=== PATIENT | male | born 1975 | race Caucasian/White ===

== ENCOUNTER 2024-08-10 16:34 | Inpatient (IN) ==
[2024-08-10 17:19] LABS: Basophils # (auto) 0.07 K/uL (0.00-0.20); Basophils % (auto) 1.1 %; Eosinophils # (auto) 0.37 K/uL (0.00-0.50); Eosinophils % (auto) 5.7 %; Hematocrit (blood only) 26.3 % (42.0-52.0); Hemoglobin 7.6 g/dl (14.0-18.0); Immature Granulocytes # (auto) 0.02 K/uL (0.01-0.20); Immature Granulocytes % (auto) 0.3 %; Lymphocytes # (auto) 1.07 K/uL (1.20-3.40); Lymphocytes % (auto) 16.5 %; Mean Corpuscular Hgb Conc 28.9 g/dL (32.0-36.0); Mean Corpuscular Volume 90.1 fL (80.0-100.0); Monocytes # (auto) 0.76 K/uL (0.11-0.59); Monocytes % (auto) 11.7 %; Neutrophils # (auto) 4.21 K/uL (1.40-6.50); Neutrophils % (auto) 64.7 %; Platelet Count 133 K/uL (130-400); RDW Coefficient of Variation 19.9 % (11.5-14.5); RDW Standard Deviation 64.6 fL (36.4-46.3); Red Blood Count 2.92 M/uL (4.70-6.10)
--- NOTE | 2024-08-10 17:23 | Emergency Department Note ---
Impression & Plan Anemia ADMIT ED Provider Note HPI: History obtained from patient. The patient is a 49-year-old gentleman with history of chronic low back pain status post laminectomy, who presents the emergency department with chief complaint of chronic back pain with lower extremity numbness. Patient states he has had this issue for about the past 8 months. Patient states he was referred to a sports medicine provider at [facility] in [place] and he drove to [facility] for his appointment. Given his numbness and low back pain his provider thought he should be evaluated for cauda equina syndrome and therefore sent him to the ER for further management. On arrival here to the ED the patient is alert, he has some diminished motor function in the bilateral lower extremities that he tells me is chronic, he states he has bilateral lower extremity numbness which she also states is chronic. Patient states that he has urinary urgency which is also chronic. Patient denies any recent fever. On arrival here to the ED the patient is otherwise hemodynamically stable. ROS: - Per HPI Differential Diagnosis: Cauda equina syndrome, degenerative disease of the lumbar spine with radicular pain/numbness, herniated lumbar disc, compression fracture, bony lesion/tumor, amongst other potential pathologies. *Outpatient medications and allergy history reviewed. PE: General: Alert, obese HEENT: Normocephalic, trachea midline Eyes: Extraocular eye movement is intact, no scleral erythema Pulmonary: Clear to auscultation bilaterally, no wheezing Cardio: Regular rate and rhythm GI: Abdomen is soft to palpation : No suprapubic tenderness MSK: No evidence of trauma or malformation of the extremities, no edema, no midline tenderness of the lumbar spine with palpation Skin: No evidence of rash Neuro: Alert, no focal deficits, motor function is slightly diminished in the bilateral lower extremities at 3 out of 5 with dorsiflexion and plantarflexion of the bilateral feet Psychiatric: Cooperative INDEPENDENT INTERPRETATIONS: puttier: (As interpreted by myself): - An order was placed for continuous cardiac monitoring - Patient was noted to be in sinus rhythm with a rate of 95 EKG: (As interpreted by myself): Rate: 100 Rhythm: Sinus rhythm Intervals: Within normal limits ST changes: No ST elevation Time: 2124 Interventions provided in ED: -IV morphine, IV Zofran Medical Decision Making: IV was established and lab work obtained, patient was placed on records management coordinator. Lab work shows no leukocytosis, patient has an anemia of 7.6 with unknown baseline. Platelet count is normal. CMP does not show any evidence of any critical findings, troponin did return mildly elevated at 25.7, patient denies any chest pain, EKG does not show any acute ischemic changes per my interpretation. Urine shows 3+ glucose but no evidence of infection. Given the patient's issues with numbness in the lower extremities with acute on chronic lower back pain, MRI imaging of the lumbar spine was obtained that shows mild disc and facet degeneration in the lower lumbar spine. There is some mild bilateral foraminal narrowing at L4 and L5 as well as at L5 and S1. Otherwise no acute osseous findings are noted per the interpreting radiologist, there is no significant central canal narrowing. On my reassessment the patient appears well, he is ambulatory in the room without issue. He states he is not aware of any history of anemia, states he has had some fatigue over the past several weeks that appears to be worsening. He states he does think that over the past several weeks he has had several episodes of "dark stools" but no jorge l bleeding. His troponin is mildly elevated as well in the setting of symptomatic anemia therefore I do think he should be admitted. He is otherwise hemodynamically stable at this time and saturating well on room air, therefore will defer PRBC transfusion to the inpatient team, if determined appropriate. I discussed the patient's presentation with the on-call hospitalist, Dr. Rizo, and he is in agreement. Patient was placed for admission in stable condition. Consultants/Discussions held with other healthcare providers: -Hospitalist, Dr. Rizo Disposition discussion held by myself with: -Patient and significant other at the bedside Diagnosis: 1. Anemia, acute, nonspecific 2. Elevated high-sensitivity troponin, acute 3. Acute on chronic back pain 4. Generalized weakness/fatigue, acute Disposition: Admission Jeff Cohen DO Emergency Medicine Past Med/Surg History Problem List (Updated 05/20/18 @ 17:51 by [employer] [place]) Anemia (Acute) Post-operative state (Acute 12/26/13) Medical History (Updated 08/10/24 @ 22:39 by Jeff Cohen DO) Dougherty esophagus Morbid obesity Diabetes mellitus, type II GERD (gastroesophageal reflux disease) ELROY (obstructive sleep apnea) HTN (hypertension) HLD (hyperlipidemia) Social History Smoking Status: Never smoker Feels Safe at Home: Yes Allergies Allergies Allergy/AdvReac Type Severity Reaction Status Date / Time diazepam AdvReac Unknown diaphoretic Verified 12/06/13 11:29 ;confused Home Meds Home Medications Medication Instructions Recorded Confirmed albuterol sulfate 90 mcg/actuation 2 puff inhalation Q4 PRN Cough 08/10/24 08/10/24 aerosol inhaler diclofenac sodium 75 mg 75 mg PO BID 08/10/24 08/10/24 tablet,delayed release empagliflozin 25 mg tablet 25 mg PO DAILY 08/10/24 08/10/24 (Jardiance) furosemide 20 mg tablet 20 mg PO DAILY 08/10/24 08/10/24 gabapentin 300 mg capsule 300 mg PO QID 08/10/24 08/10/24 hydrocodone 7.5 mg-acetaminophen 7.5 - 235 tab PO QID 08/10/24 08/10/24 325 mg tablet lisinopril 5 mg tablet 5 mg PO DAILY 08/10/24 08/10/24 lorazepam 0.5 mg tablet 0.5 mg PO HS 08/10/24 08/10/24 metformin 1,000 mg tablet 500 mg PO BID 08/10/24 08/10/24 mometasone-formoterol HFA 100 1 puff inhalation BID 08/10/24 08/10/24 mcg-5 mcg/actuation aerosol inhaler (Jerson) montelukast 10 mg tablet 10 mg PO HS 08/10/24 08/10/24 omeprazole 40 mg capsule,delayed 40 mg PO BID 08/10/24 08/10/24 release rosuvastatin 10 mg tablet 10 mg PO DAILY 08/10/24 08/10/24 semaglutide 0.25 mg or 0.5 mg (2 0.25 mg subcut WK 08/10/24 08/10/24 mg/3 mL) subcutaneous pen injector (Ozempic) tizanidine 4 mg tablet 8 mg PO HS 08/10/24 08/10/24 trazodone 50 mg tablet 50 mg PO HS 08/10/24 08/10/24 triamcinolone acetonide 0.1 % 1 applic topical UD 08/10/24 08/10/24 topical cream Results & Data (ED) Vital Signs Vital Signs - 24 hr 08/10/24 16:42 08/10/24 19:44 08/10/24 20:15 Temperature 37.1 C Temperature Source Temporal Artery Scan Pulse Rate 101 H Pulse Rate [Right Finger] 101 H 93 H Respiratory Rate 20 19 16 Blood Pressure 131/62 Blood Pressure [Right Arm] 109/75 Blood Pressure Mean 85 Blood Pressure Mean [Right Arm] 86 Pulse Oximetry 97 92 92 Oxygen Delivery Method Room Air Nasal Cannula Oxygen Flow Rate 2 Sepsis Recent Fever Within 48 Hours No Sepsis New/Unexplained Change in Mental Status N/A Sepsis Action Taken by Nursing No Action Required 08/10/24 22:32 Temperature Temperature Source Pulse Rate Pulse Rate [Right Finger] 98 H Respiratory Rate 19 Blood Pressure Blood Pressure [Right Arm] 125/91 Blood Pressure Mean Blood Pressure Mean [Right Arm] 102 Pulse Oximetry 91 Oxygen Delivery Method Room Air Oxygen Flow Rate Sepsis Recent Fever Within 48 Hours Sepsis New/Unexplained Change in Mental Status Sepsis Action Taken by Nursing Laboratory Data 08/10/24 17:00 08/10/24 17:00 Lab Results 08/10/24 08/10/24 Range/Units 17:00 18:15 WBC 6.50 (4.8-10.8) K/ul RBC 2.92 L (4.70-6.10) M/uL Hgb 7.6 L (14.0-18.0) g/dl Hct 26.3 L (42.0-52.0) % MCV 90.1 (80.0-100.0) fL MCH 26.0 (25.0-34.0) pg MCHC 28.9 L (32.0-36.0) g/dL RDW Std Deviation 64.6 H (36.4-46.3) fL RDW Coeff of Sina 19.9 H (11.5-14.5) % Plt Count 133 (130-400) K/uL MPV 10.0 (9.4-12.4) fL Immature Gran % (Auto) 0.3 % Neut % (Auto) 64.7 % Lymph % (Auto) 16.5 % Webb % (Auto) 11.7 % Eos % (Auto) 5.7 % Baso % (Auto) 1.1 % Neut # (Auto) 4.21 (1.40-6.50) K/uL Lymph # (Auto) 1.07 L (1.20-3.40) K/uL Webb # (Auto) 0.76 H (0.11-0.59) K/uL Eos # (Auto) 0.37 (0.00-0.50) K/uL Baso # (Auto) 0.07 (0.00-0.20) K/uL Immature Gran # (Auto) 0.02 (0.01-0.20) K/uL Polychromasia 1+ Hypochromasia Present Sodium 137 (136-145) mmol/L Potassium 4.2 (3.5-5.1) mmol/L Chloride 99 (98-107) mmol/L Carbon Dioxide 24 (21-32) mmol/L Anion Gap 14 H (3-11) BUN 14 (6-23) mg/dl Creatinine 0.93 (0.6-1.4) mg/dl Est Cr Clr Drug Dosing 126.8 ml/min eGFR 100.66 BUN/Creatinine Ratio 15.1 (10-20) Glucose 80 (70-99(Fasting)) mg/dl Calcium 9.6 (8.6-10.3) mg/dl Total Bilirubin 1.0 (0.2-1.0) mg/dl AST 55 H (13-39) U/L ALT 19 (7-52) U/L Alkaline Phosphatase 158 H (34-104) U/L Troponin I High Sens 25.7 H (0-20) pg/ml Total Protein 7.3 (6.0-8.3) gm/dl Albumin 3.7 (3.4-5.0) gm/dl Globulin 3.6 (2.5-4.0) gm/dl Albumin/Globulin Ratio 1.0 (0.9-2) Urine Color Yellow Urine Appearance Clear (Clear) Urine pH 6.0 (4.5-7.5) Ur Specific Goltry 1.016 (1.000-1.030) Urine Protein 1+ H (Negative) Urine Glucose (UA) 3+ H (Negative) Urine Ketones Negative (Negative) Urine Blood Negative (Negative) Urine Nitrite Negative (Negative) Urine Bilirubin Negative (Negative) Urine Urobilinogen Negative (Negative) Ur Leukocyte Esterase Negative (Negative) Urine WBC (Auto) 0-5 (0-5) /hpf Urine RBC (Auto) 0-2 (0-2) /hpf U Hyaline Cast (Auto) 0-2 (0-2) /lpf U Epithel Cells (Auto) 0-2 (0-2) /hpf Urine Bacteria (Auto) None Seen (None Seen) Administered Medications Gabapentin (Gabapentin 300 Mg Cap) 300 mg PO QID RANDELL Stop: 09/09/24 21:34 Last Admin: 08/10/24 22:01 Dose: 300 mg Documented By: KELLW Lorazepam (Lorazepam 0.5 Mg Tab) 0.5 mg PO HS PRN PRN Reason: insomnia Stop: 09/09/24 21:34 Last Admin: 08/10/24 22:32 Dose: 0.5 mg Documented By: KELLW Montelukast Sodium (Montelukast Sodium 10 Mg Tablet) 10 mg PO HS RANDELL Stop: 09/09/24 21:34 Last Admin: 08/10/24 22:01 Dose: 10 mg Documented By: KELLW Oxycodone HCl (Oxycodone Hcl Ir 5 Mg Tab (Immediate Release)) 5 - 10 mg PO QID PRN PRN Reason: Pain Stop: 08/24/24 21:31 Last Admin: 08/10/24 22:32 Dose: 5 mg Documented By: JAZIEL Trazodone HCl (Trazodone Hcl 50 Mg Tab) 50 mg PO HS RANDELL Stop: 09/09/24 21:34 Last Admin: 08/10/24 22:01 Dose: 50 mg Documented By: JAZIEL Discontinued Medications Pantoprazole Sodium 80 mg/ (Dextrose) 120 mls @ 480 mls/hr IV ONE STA Stop: 08/10/24 21:52 Last Infusion: 08/10/24 22:16 Dose: Infused Documented By: Admin: 08/10/24 22:02 Dose: 480 mls/hr Documented By: JAZIEL Morphine Sulfate (Morphine Sulfate 4 Mg/Ml 1 Ml Carp\\Vial) 4 mg IV NOW STA Stop: 08/10/24 17:21 Last Admin: 08/10/24 17:26 Dose: 4 mg Documented By: JAMIE Ondansetron HCl (Ondansetron Inj 2 Mg/Ml 2 Ml Vial) 4 mg IV NOW STA Stop: 08/10/24 17:21 Last Admin: 08/10/24 17:26 Dose: 4 mg Documented By: JAMIE Imaging Data Radiologist's Impression: Lumbar Spine MRI 08/10/24 17:19 Exam(s): MRI L SPINE Without Contrast EXAM: MR Lumbar Spine Without Intravenous Contrast CLINICAL HISTORY: Reason for exam: low back pain, LE numbness. TECHNIQUE: Magnetic resonance images of the lumbar spine without intravenous contrast in multiple planes. COMPARISON: No relevant prior studies available. FINDINGS: There is lumbar lordosis, preserved vertebral body height, and normal vertebral body alignment. There is no evidence of acute fracture or traumatic subluxation. There is no bone marrow edema or discitis change. Benign intraosseous hemangiomas are noted at the L1, L2, and L4 levels. Laminectomies have been performed at the L4-L5 and L5-S1 levels. Conus medullaris is seen opposite to the T12 level and appears normal on sagittal views. Conus is not imaged on axial sequences. There is disc desiccation at L3-L4, L4-L5, L5-S1. There is disc height loss at the L4-L5 and L5-S1 levels. There is facet degeneration in the lower lumbar spine. L1-L2: No spinal canal or foraminal narrowing. L2-L3: No spinal canal or foraminal narrowing. L3-L4: Slight disc bulging with minimal spinal canal narrowing. No foraminal narrowing. L4-L5: Laminectomy at this level. Disc degeneration with mild disc bulging. No spinal canal narrowing. Facet degeneration contributes to mild bilateral foraminal narrowing. L5-S1: Laminectomy at this level. Disc degeneration and minimal disc bulging. No spinal canal narrowing. Facet degeneration contributes to mild bilateral foraminal narrowing. Sacroiliac joints are normally aligned. Paravertebral soft tissues are unremarkable. IMPRESSION: 1. Mild disc and facet degeneration in the lower lumbar spine. Mild bilateral foraminal narrowing at L4-L5 and L5-S1. 2. No acute osseous findings. No significant central canal narrowing. 3. Status post lower lumbar laminectomies. Electronically signed by: Chinmay Melissa M.D. 08/10/24 20:23 PM Discharge Plan Visit Data Chief Complaint: Back Injury/Pain Stated Complaint: LOW BACK PAIN NUBNESS, BLADDER ISSUES ED Provider: Jeff Cohen Discharge Problem: Anemia Forms Stand Alone Forms: [facility] [employer] Prescriptions Prescriptions: No Action diclofenac sodium 75 mg tablet,delayed release (DR/EC) 75 mg PO BID furosemide 20 mg tablet 20 mg PO DAILY hydrocodone-acetaminophen 7.5-325 mg tablet 7.5 - 235 tab PO QID Jardiance 25 mg tablet 25 mg PO DAILY lorazepam 0.5 mg tablet 0.5 mg PO HS lisinopril 5 mg tablet 5 mg PO DAILY metformin 1,000 mg tablet 500 mg PO BID Ozempic 0.25 mg or 0.5 mg (2 mg/3 mL) pen injector 0.25 mg SUBCUT WK rosuvastatin 10 mg tablet 10 mg PO DAILY tizanidine 4 mg tablet 8 mg PO HS trazodone 50 mg tablet 50 mg PO HS triamcinolone acetonide 0.1 % cream 1 applic TOPICAL UD Dulera 100-5 mcg/actuation HFA aerosol inhaler 1 puff INHALATION BID montelukast 10 mg tablet 10 mg PO HS omeprazole 40 mg capsule,delayed release(DR/EC) 40 mg PO BID gabapentin 300 mg capsule 300 mg PO QID albuterol sulfate 90 mcg/actuation HFA aerosol inhaler 2 puff INHALATION Q4 PRN (Reason: Cough) Referrals Referrals: Ke Hickey MD [Outside Practitioners] -
[2024-08-10] MEDS: MoRPHine SULFATE 4 MG/ML 1 ML CARP\\VIAL IV STA (17:26)
[2024-08-10] MEDS: ONDANSETRON INJ 2 MG/ML 2 ML VIAL IV STA (17:26)
[2024-08-10 17:36] LABS: Hypochromasia Present; Polychromasia 1+
[2024-08-10 17:48] LABS: Alanine Aminotransferase 19 U/L (7-52); Albumin Level 3.7 gm/dl (3.4-5.0); Alkaline Phosphatase 158 U/L (34-104); Anion Gap 14 (3-11); Aspartate Aminotransferase 55 U/L (13-39); BUN Creatinine Ratio 15.1 (10-20); Blood Urea Nitrogen 14 mg/dl (6-23); Calcium 9.6 mg/dl (8.6-10.3); Carbon Dioxide 24 mmol/L (21-32); Chloride 99 mmol/L (98-107); Creatinine Clr Calc Pharmacy 126.8 ml/min; Globulin 3.6 gm/dl (2.5-4.0); Glucose 80 mg/dl (70-99(Fasting)); Potassium 4.2 mmol/L (3.5-5.1); Sodium 137 mmol/L (136-145); Total Protein 7.3 gm/dl (6.0-8.3)
[2024-08-10 18:31] LABS: Appearance Urine Clear (Clear); Bacteria Urine Automated None Seen (None Seen); Bilirubin Urine Negative (Negative); Blood Urine Negative (Negative); Cast Urine Automated 0-2 /lpf (0-2); Color Urine Yellow; Epithelial Cell Urine Auto 0-2 /hpf (0-2); Glucose Urine UA 3+ (Negative); Ketones Urine Negative (Negative); Leukocyte Esterase Urine Negative (Negative); Nitrite Urine Negative (Negative); Protein Urine 1+ (Negative); RBC Urine Automated 0-2 /hpf (0-2); Specific Gravity Urine 1.016 (1.000-1.030); Urobilinogen Urine Negative (Negative); WBC Urine Automated 0-5 /hpf (0-5)
--- NOTE | 2024-08-10 21:02 | Magnetic Resonance Report ---
Exam(s): MRI L SPINE Without Contrast EXAM: MR Lumbar Spine Without Intravenous Contrast CLINICAL HISTORY: Reason for exam: low back pain, LE numbness. TECHNIQUE: Magnetic resonance images of the lumbar spine without intravenous contrast in multiple planes. COMPARISON: No relevant prior studies available. FINDINGS: There is lumbar lordosis, preserved vertebral body height, and normal vertebral body alignment. There is no evidence of acute fracture or traumatic subluxation. There is no bone marrow edema or discitis change. Benign intraosseous hemangiomas are noted at the L1, L2, and L4 levels. Laminectomies have been performed at the L4-L5 and L5-S1 levels. Conus medullaris is seen opposite to the T12 level and appears normal on sagittal views. Conus is not imaged on axial sequences. There is disc desiccation at L3-L4, L4-L5, L5-S1. There is disc height loss at the L4-L5 and L5-S1 levels. There is facet degeneration in the lower lumbar spine. L1-L2: No spinal canal or foraminal narrowing. L2-L3: No spinal canal or foraminal narrowing. L3-L4: Slight disc bulging with minimal spinal canal narrowing. No foraminal narrowing. L4-L5: Laminectomy at this level. Disc degeneration with mild disc bulging. No spinal canal narrowing. Facet degeneration contributes to mild bilateral foraminal narrowing. L5-S1: Laminectomy at this level. Disc degeneration and minimal disc bulging. No spinal canal narrowing. Facet degeneration contributes to mild bilateral foraminal narrowing. Sacroiliac joints are normally aligned. Paravertebral soft tissues are unremarkable. IMPRESSION: 1. Mild disc and facet degeneration in the lower lumbar spine. Mild bilateral foraminal narrowing at L4-L5 and L5-S1. 2. No acute osseous findings. No significant central canal narrowing. 3. Status post lower lumbar laminectomies. Electronically signed by: Chinmay Melissa M.D. 08/10/24 20:23 PM
[2024-08-10] MEDS ORDERED: ACETAMINOPHEN 325 MG TAB PO PRN (21:32)
[2024-08-10] MEDS ORDERED: ACETAMINOPHEN 500 MG TAB PO PRN (21:38)
[2024-08-10 21:46] LABS: Troponin I High Sensitivity 25.7 pg/ml (0-20)
[2024-08-10] MEDS: traZODone HCL 50 MG TAB PO SCH (22:01)
[2024-08-10] MEDS: MONTELUKAST SODIUM 10 MG TABLET PO SCH (22:01)
[2024-08-10] MEDS: GABAPENTIN 300 MG CAP PO SCH (22:01)
[2024-08-10] MEDS: PANTOprazole 80 MG in DEXTROSE 5% 100 ML IV STA (22:02)
--- NOTE | 2024-08-10 22:04 | History & Physical Report ---
Date of Service August 10, 2024 Assessment & Plan (1) Symptomatic anemia: (2) Chronic back pain: (3) Diabetes mellitus, type II: (4) HTN (hypertension): (5) HLD (hyperlipidemia): (6) GERD (gastroesophageal reflux disease): (7) ELROY (obstructive sleep apnea): (8) Morbid obesity: Plan: HPI, PMH, FH, Social history, PE, med rec completed by myself, Jolie Degroot PA-C. Assessment and Plan per Dr Rizo. See addendum. History of Present Illness Chief Complaint: back pain, LE numbness Primary Care Provider: Britni Gomez PA-C Patient is a 49-year-old male with PMH GERD, HTN, HLD, DM II, ELROY, morbid obesity, anxiety presented to ER for back pain LE numbness. Patient reports chronic low back pain. Takes hydrocodone 4 times a day. Reports approximately 6-8 months ago had a fall out of bed and since has had increased pain to left hip radiates to groin and down left thigh to knee. Also reports numbness sensation to left upper leg. States this has been ongoing for past 6-8 months. Followed up with PCP 07/07/2024 and was started on diclofenac. Per outpatient chart review 07/07/2024 L-spine x-ray multilevel degenerative changes, no acute fracture and bilateral hip x-ray: No acute fracture or dislocation, Right hip arthroplasty, Moderate degenerative change left hip. Per outpatient chart review was seen by [facility] sports medicine today for hip pain, back pain and leg pain. Patient had reported issues with bladder urgency intermittently leading to incontinence and altered sensation to perineal region and was referred to ER for further evaluation for concern for cauda equina syndrome. Patient reports has had some nausea. He started Ozempic approximately 4 weeks ago. He is unsure when nausea began and if there is an association with onset of starting Ozempic. Has been taking Diclofenac twice a day. Denies other NSAID use. Drinks approximately 5 beers a week. Intermittent use of vaping medical marijuana. A few times noticed darker color stool but is not consistent. Denies hematochezia. Denies vomiting or abdominal pain. Denies loss control of b owels. Reports has urinary urgency and with his back pain and leg numbness can't get to bathroom in time and sometimes has incontinence. Reports his helps swing his legs out of bed and assists in ambulating him to bathroom in attempts to get there in time. Reports chronic BLE edema and is on lasix. He reports he is becoming fatigued faster with walking and has noticed feels a little SOB with walking over past couple of weeks. Denies history of CHF. Drinks 5 beers a week. Denies other NSAID use. Denies fever/chills, diaphoresis, diarrhea, OLSEN, dizziness, syncope, vision changes, neck pain, CP, palpitations, cough, sore throat, rhinorrhea, rashes, hematuria. In ER MRI L spine: Mild disc and facet degeneration in the lower lumbar spine. Mild bilateral foraminal narrowing at L4-L5 and L5-S1. No acute osseous findings. No significant central canal narrowing. Status post lower lumbar laminectomies. 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 10/13/2021 CT abdomen pelvis: Liver cirrhosis with signs of portal hypertension, splenomegaly Allergies Allergy/AdvReac Type Severity Reaction Status Date / Time diazepam AdvReac Unknown diaphoretic Verified 12/06/13 11:29 ;confused Home Medications Medication Instructions Recorded Confirmed Type albuterol sulfate 90 mcg/actuation 2 puff inhalation Q4 PRN Cough 08/10/24 08/10/24 History aerosol inhaler diclofenac sodium 75 mg 75 mg PO BID 08/10/24 08/10/24 History tablet,delayed release empagliflozin 25 mg tablet 25 mg PO DAILY 08/10/24 08/10/24 History (Jardiance) furosemide 20 mg tablet 20 mg PO DAILY 08/10/24 08/10/24 History gabapentin 300 mg capsule 300 mg PO QID 08/10/24 08/10/24 History hydrocodone 7.5 mg-acetaminophen 7.5 - 235 tab PO QID 08/10/24 08/10/24 History 325 mg tablet lisinopril 5 mg tablet 5 mg PO DAILY 08/10/24 08/10/24 History lorazepam 0.5 mg tablet 0.5 mg PO HS 08/10/24 08/10/24 History metformin 1,000 mg tablet 1,000 mg PO BID 08/10/24 08/10/24 History mometasone-formoterol HFA 100 1 puff inhalation BID 08/10/24 08/10/24 History mcg-5 mcg/actuation aerosol inhaler (Dulera) montelukast 10 mg tablet 10 mg PO HS 08/10/24 08/10/24 History omeprazole 40 mg capsule,delayed 40 mg PO BID 08/10/24 08/10/24 History release rosuvastatin 10 mg tablet 10 mg PO DAILY 08/10/24 08/10/24 History semaglutide 0.25 mg or 0.5 mg (2 0.25 mg subcut WK 08/10/24 08/10/24 History mg/3 mL) subcutaneous pen injector (Ozempic) tizanidine 4 mg tablet 4 mg PO HS 08/10/24 08/10/24 History trazodone 50 mg tablet 50 mg PO HS 08/10/24 08/10/24 History triamcinolone acetonide 0.1 % 1 applic topical UD 08/10/24 08/10/24 History topical cream Past Med/Surg History Problem List (Updated 08/10/24 @ 22:58 by Jolie Degroot PA-C) Symptomatic anemia Anemia (Acute) Post-operative state (Acute 12/26/13) Medical History (Updated 08/10/24 @ 23:06 by Jolie Degroot PA-C) Chronic back pain Morbid obesity Diabetes mellitus, type II GERD (gastroesophageal reflux disease) ELROY (obstructive sleep apnea) HTN (hypertension) HLD (hyperlipidemia) Surgical History (Updated 08/10/24 @ 22:58 by Jolie Degroot PA-C) History of spinal surgery History of esophagogastroduodenoscopy (EGD) History of colonoscopy Family History (Updated 08/10/24 @ 22:58 by Jolie Degroot PA-C) Father Diabetes Social History (Updated 08/10/24 @ 22:59 by Jolie Degroot PA-C) Smoking Status: Current some day smoker Tobacco Type: E-cigarettes / Vaping Hx Alcohol Use: Yes (5 beers a week) Hx Substance Use: Yes Prescribed Medications: Marijuana Feels Safe at Home: Yes Review of Systems Review of Systems: All systems reviewed & are unremarkable except as noted in HPI & below Physical Exam Physical Exam: General: +anxious, obese male Head: normocephalic, atraumatic Eyes: conjunctiva non-injected, anicteric ENT: normal inspection external ears, nose, mucous membranes moist Neck: supple, trachea midline Lungs: clear, no respiratory distress, no wheezing/rhonchi/rales CV: RRR, no murmur Abd: protuberant, normal BS, soft, non-tender Ext: no cyanosis, no erythema, no calf tenderness Back: +healed surgical scar lower lumbar region. +tenderness to palpation lower lumbar spinous processes. No skin discoloration noted. Reported decreased sensation to left thigh vs right thigh, +tenderness to palpation left thigh Neuro: A&O x 3, no focal deficits noted, +anxious affect, tearful Skin: warm, dry Results & Data Results & Data Vital Signs (Past 12 Hours) Vital Signs Temp Pulse Pulse Resp BP BP Pulse Ox 08/10/24 20:15 93 H 16 109/75 92 08/10/24 19:44 101 H 19 92 08/10/24 16:42 37.1 C 101 H 20 131/62 97 O2 Del Method O2 Flow Rate 08/10/24 20:15 Nasal Cannula 2 08/10/24 19:44 Room Air 08/10/24 16:42 Laboratory Results Short CBC 08/10/24 Range/Units 17:00 WBC 6.50 (4.8-10.8) K/ul Hgb 7.6 L (14.0-18.0) g/dl Hct 26.3 L (42.0-52.0) % Plt Count 133 (130-400) K/uL BMP 08/10/24 17:00 Sodium 137 Potassium 4.2 Chloride 99 Carbon Dioxide 24 BUN 14 Creatinine 0.93 Glucose 80 Calcium 9.6 Liver Function 08/10/24 Range/Units 17:00 Total Bilirubin 1.0 (0.2-1.0) mg/dl AST 55 H (13-39) U/L ALT 19 (7-52) U/L Alkaline Phosphatase 158 H (34-104) U/L Albumin 3.7 (3.4-5.0) gm/dl Urine 08/10/24 Range/Units 18:15 Urine Color Yellow Urine Appearance Clear (Clear) Urine pH 6.0 (4.5-7.5) Ur Specific [place] 1.016 (1.000-1.030) Urine Protein 1+ H (Negative) Urine Glucose (UA) 3+ H (Negative) Diagnostic Findings Lumbar Spine MRI 08/10/24 17:19 Exam(s): MRI L SPINE Without Contrast EXAM: MR Lumbar Spine Without Intravenous Contrast CLINICAL HISTORY: Reason for exam: low back pain, LE numbness. TECHNIQUE: Magnetic resonance images of the lumbar spine without intravenous contrast in multiple planes. COMPARISON: No relevant prior studies available. FINDINGS: There is lumbar lordosis, preserved vertebral body height, and normal vertebral body alignment. There is no evidence of acute fracture or traumatic subluxation. There is no bone marrow edema or discitis change. Benign intraosseous hemangiomas are noted at the L1, L2, and L4 levels. Laminectomies have been performed at the L4-L5 and L5-S1 levels. Conus medullaris is seen opposite to the T12 level and appears normal on sagittal views. Conus is not imaged on axial sequences. There is disc desiccation at L3-L4, L4-L5, L5-S1. There is disc height loss at the L4-L5 and L5-S1 levels. There is facet degeneration in the lower lumbar spine. L1-L2: No spinal canal or foraminal narrowing. L2-L3: No spinal canal or foraminal narrowing. L3-L4: Slight disc bulging with minimal spinal canal narrowing. No foraminal narrowing. L4-L5: Laminectomy at this level. Disc degeneration with mild disc bulging. No spinal canal narrowing. Facet degeneration contributes to mild bilateral foraminal narrowing. L5-S1: Laminectomy at this level. Disc degeneration and minimal disc bulging. No spinal canal narrowing. Facet degeneration contributes to mild bilateral foraminal narrowing. Sacroiliac joints are normally aligned. Paravertebral soft tissues are unremarkable. IMPRESSION: 1. Mild disc and facet degeneration in the lower lumbar spine. Mild bilateral foraminal narrowing at L4-L5 and L5-S1. 2. No acute osseous findings. No significant central canal narrowing. 3. Status post lower lumbar laminectomies. Electronically signed by: Chinmay Melissa M.D. 08/10/24 20:23 PM Chest X-Ray 08/10/24 21:36 Exam(s): XR CXR 1 VIEW EXAM: XR Chest, 1 View CLINICAL HISTORY: Reason for exam: low o2. TECHNIQUE: Frontal view of the chest. COMPARISON: 12/06/13 FINDINGS: Lungs: Pulmonary vascular congestion. No airspace consolidation. Linear atelectasis at the lung bases. Pleural space: Unremarkable. No pleural effusion or pneumothorax. Heart: Unremarkable. No cardiomegaly or pulmonary vascular congestion. Bones/joints: No acute fracture. No dislocation. IMPRESSION: Pulmonary vascular congestion. No airspace consolidation. Electronically signed by: Chinmay Melissa M.D. 08/10/24 22:55 PM Supervising Physician Co-Signing Physician Notes IM ATTENDING : Patient seen and examined. History obtained from patient, family, and records. Concur with salient points upon review of preceding documentation by Ms. Petty Nguyễn PA-C. I take responsibility for plan of care below. In addition, patient gives history of exertional SOB, fluid retention (progressive abdominal distention and bilateral leg swelling) over the last few weeks. FINAL ASSESSMENT AND PLAN as follows : Subacute CHF Possible pulmonary hypertension, history ELROY, current CPAP noncompliance ? Valvular heart disease, systolic murmur on exam NSAID Rx contributory to fluid retention Acute on chronic anemia (baseline hemoglobin of 13 from 2021), possible UGIB, history NAFLD cirrhosis, history of Dougherty's esophagus, NSAID Rx for back pain Abdominal distention rule out ascites LE swelling secondary to CHF rule out DVT Hypertension, stable Hyperlipidemia statin Rx Subacute on chronic back pain with radiculopathy symptoms, history of back surgery (2012), following fall from 8 months ago as per patient account DM2 on oral medications, well-controlled as of recent hemoglobin A1c of 6.06 April 2024 Anxiety/mood disorder, at baseline Admit to PCU Diuretic Rx Strict I/Os, daily weights, CHF education TTE, Cardiology consult Re: CHF Initiate beta-odin Outpatient [employer] follow-up eval Patient counseled regarding NSAID potential to cause GI irritation and fluid retention. Abdominal ultrasound rule out ascites, diagnostic and therapeutic paracentesis if significant LE venous Dopplers rule out DVT IV PPI for UGIB IV ceftriaxone for SBP prophylaxis in a cirrhotic patient presenting with GI bleed Anemia workup, transfuse PRBC if hemoglobin less than 7 and or from symptomatic anemia GI consult re: UGIB N.p.o. in anticipation of endoscopy Lidoderm patch trial for lumbar radiculopathy Orthopedics spine consult if without improvement PT eval ISS BG goal 1 10-1 40 DVT prophylaxis. SCDs if no blood clot on ultrasound Full code Patient requesting updates providers. Ms. Dayami Sales, contact #[phone]. Text document was generated using [employer] voice recognition software. It may contain grammatical or spelling errors. Kindly contact undersigned for clarification of any documentation item in q uestion.
[2024-08-10] MEDS: oxyCODONE HCL IR 5 MG TAB (IMMEDIATE RELEASE) PO PRN (22:32)
[2024-08-10] MEDS: LORazepam 0.5 MG TAB PO PRN (22:32)
[2024-08-10] MEDS: cefTRIAXone SODIUM 2,000 MG/50 ML BAG IV SCH (22:49)
--- NOTE | 2024-08-10 22:56 | XRay Report ---
Exam(s): XR CXR 1 VIEW EXAM: XR Chest, 1 View CLINICAL HISTORY: Reason for exam: low o2. TECHNIQUE: Frontal view of the chest. COMPARISON: 12/06/13 FINDINGS: Lungs: Pulmonary vascular congestion. No airspace consolidation. Linear atelectasis at the lung bases. Pleural space: Unremarkable. No pleural effusion or pneumothorax. Heart: Unremarkable. No cardiomegaly or pulmonary vascular congestion. Bones/joints: No acute fracture. No dislocation. IMPRESSION: Pulmonary vascular congestion. No airspace consolidation. Electronically signed by: Chinmay Melissa M.D. 08/10/24 22:55 PM
[2024-08-10] MEDS ORDERED: LORazepam 0.5 MG TAB PO PRN (22:57)
[2024-08-10 23:07] LABS: Hematocrit (blood only) 27.5 % (42.0-52.0); Hemoglobin 8.1 g/dl (14.0-18.0); Reticulocyte % 3.61 % (0.50-2.00); Reticulocytes # 0.11 10^6/uL (0.020-0.100)
[2024-08-10 23:13] LABS: Magnesium 1.9 mg/dl (1.7-2.4)
[2024-08-10] MEDS ORDERED: ALBUMIN 25% 25 GM/100 ML VIAL IV ONE (23:31)
[2024-08-10] MEDS ORDERED: PROMETHAZINE 12.5 MG/50.5 ML BAG IV PRN (23:36)
[2024-08-10 23:39] LABS: Transferrin 373 mg/dl (200-360)
[2024-08-10] MEDS: LIDOCAINE 5% 1 PATCH TD SCH (23:40)
[2024-08-10 23:48] LABS: Prothrombin Time 10.9 Seconds (9.0-12.0)
[2024-08-10 23:50] LABS: Folate (Folic Acid),Ser orPlas 12.22 ng/ml (>5.38)
[2024-08-11 00:22] LABS: Thyroid Stimulating Hormone 3.053 uIu/ml (0.300-4.500)
[2024-08-11 01:00] LABS: Troponin I High Sensitivity 37.3 pg/ml (0-20)
--- NOTE | 2024-08-11 02:14 | Ultrasound Report ---
EXAM: US venous doppler LE BI CLINICAL HISTORY: HX: no prev. leg swelling. TECH NOTES: no obvious dvt bilat lower ext INPATIENT TECHNIQUE: Bilateral lower extremity venous Doppler ultrasound is performed. One or more of the following were performed- spectral analysis, waveform analysis, and pulsed Doppler. COMPARISON: None. FINDINGS: The examined deep venous system veins include the common femoral vein, femoral vein, popliteal vein, peroneal vein, anterior tibialis vein, and posterior tibialis vein. The examined superficial venous system includes the proximal great saphenous vein at the SFJ. All the examined veins were compressed with no evidence of superficial and deep venous thrombosis IMPRESSION: No definite evidence of deep venous thrombosis. DISCLAIMER: DVT could be missed early in the disease when clot burden is minimal. For patients with moderate and high pretest probability of DVT and negative ultrasound, the [employer] clinical guidelines recommend testing with a D-dimer assay or repeat ultrasound in 5-7 days. If symptoms worsen, the Society of [employer]iologists in Ultrasound recommends repeating ultrasound even earlier. Electronically signed by Durga Vallejo 08-11-2024 02:14 AM
[2024-08-11] MEDS ORDERED: GLUCOSE 40% GEL 15 GM TUBE PO PRN (02:24)
[2024-08-11] MEDS ORDERED: CARBOHYDRATES FOR HYPOGLYCEMIA PO PRN (02:24)
[2024-08-11] MEDS ORDERED: GLUCOSE 10 TAB/TUBE PO PRN (02:24)
[2024-08-11] MEDS ORDERED: GLUCAGON FOR INJ 1 MG VIAL SQ PRN (02:24)
[2024-08-11] MEDS ORDERED: DEXTROSE 50% 50 ML SYRINGE IV PRN (02:24)
[2024-08-11] MEDS: INSULIN ASPART PER UNIT CHARGE SC SCH ×2 (02:44→10:17)
[2024-08-11] MEDS ORDERED: Nursing to Pharmacy Communication SCH ×2 (03:15→08:00)
--- NOTE | 2024-08-11 03:56 | Ultrasound Report ---
EXAM: US abdomen ltd ascites CLINICAL HISTORY: HX: prev RUQ 10/09/14. abd distension. H/O cirrhosis. TECH NOTES: No ascites visualized. INC FINDING: hepatosplenomegaly. liver 26.30 cm, spleen 18.4 cm. INPATIENT TECHNIQUE: Real-time grayscale and Doppler ultrasound imaging of the abdomen limited to assess the ascites was performed. COMPARISON: None. FINDINGS: No free fluid in the abdomen or the pelvis. Hepatosplenomegaly was noted. The liver measures 26.3cm and the spleen measures 18.4cm. IMPRESSION: 1. No ascites were visualized. 2. Hepatosplenomegaly was noted. Electronically signed by Durga Vallejo 08-11-2024 03:56 AM
[2024-08-11] MEDS: FUROSEMIDE 40 MG/4 ML VIAL IV ONE ×2 (04:36→04:37)
[2024-08-11] MEDS: HYDROCODONE/ACETAMINOPHEN 7.5/325MG TAB PO SCH (04:36)
[2024-08-11] MEDS: ALBUMIN 25% 25 GM/100 ML VIAL IV ONE ×2 (04:37→23:30)
[2024-08-11] MEDS: tiZANidine HCL 4 MG TABLET PO SCH (04:42)
[2024-08-11 06:27] LABS: Basophils # (auto) 0.07 K/uL (0.00-0.20); Basophils % (auto) 1.2 %; Eosinophils # (auto) 0.47 K/uL (0.00-0.50); Hematocrit (blood only) 24.3 % (42.0-52.0); Hemoglobin 7.2 g/dl (14.0-18.0); Immature Granulocytes # (auto) 0.01 K/uL (0.01-0.20); Immature Granulocytes % (auto) 0.2 %; Lymphocytes # (auto) 0.87 K/uL (1.20-3.40); Lymphocytes % (auto) 14.8 %; Mean Corpuscular Hemoglobin 26.4 pg (25.0-34.0); Mean Corpuscular Hgb Conc 29.6 g/dL (32.0-36.0); Mean Platelet Volume 9.6 fL (9.4-12.4); Monocytes # (auto) 0.53 K/uL (0.11-0.59); Neutrophils # (auto) 3.91 K/uL (1.40-6.50); Neutrophils % (auto) 66.8 %; Platelet Count 127 K/uL (130-400); RDW Coefficient of Variation 20.1 % (11.5-14.5); RDW Standard Deviation 64.7 fL (36.4-46.3); Red Blood Count 2.73 M/uL (4.70-6.10); White Blood Count 5.86 K/ul (4.8-10.8)
[2024-08-11 06:48] LABS: Anisocytosis Present; Stomatocytes 1+
[2024-08-11 06:51] LABS: Albumin Globulin Ratio 1.1 (0.9-2); Albumin Level 3.6 gm/dl (3.4-5.0); BUN Creatinine Ratio 14.3 (10-20); Bilirubin,Total 1.2 mg/dl (0.2-1.0); Calcium 9.6 mg/dl (8.6-10.3); Creatinine Clr Calc Pharmacy 130.5 ml/min; Globulin 3.4 gm/dl (2.5-4.0); Potassium 3.7 mmol/L (3.5-5.1)
[2024-08-11] MEDS: PERFLUTREN LIPID MICROSPHERE (DEFINITY) IV ONE (07:16)
--- OUTSIDE RECORDS SUMMARY | 2024-08-11 07:37 | External Medical Summary | Summary of Care ---
Author Name Unknown Organization [facility] Address [address] [facility] [place] [address] Phone [phone] Care Team Providers Care Primary Care Nurse Name Role Phone Bri Gomez PA-C Primary Care Provider Reason for Visit * Reason Comments eRx-Medication Refill Encounter Details Date Type Department Care Team (Late st Contact Info) Description 07/27/2024 Refill [facility] [address] [place] [address] Bri Gomez PA-C [address] [place] [address] Chronic pain syndrome; Chronic hip pain, unspecified laterality Allergies Active Allergy Reactions Criticality Noted Date Comments Aspirin 06/29/2018 Asthma Valium Nausea/vomiting,Othe r (Please comment) 05/09/2014 sweating documented as of this encounter (statuses as of 07/29/2024) Medications Medication Sig Dispensed Refills Start Date End Date Status ONETOUCH DELICA LANCETS 33G MISC USE DIRECTED TO TEST BLOOD SUGAR TWICE A DAY E11.9 100 Each 11 12/23/19 19 Active OneTouch Verio In Vitro Strip (Glucose Blood)Indications:Type 2 diabetes mellitus with hemoglobin A1c goal of less than 7.0% ([facility]) USE DIRECTED TO TEST BLOOD SUGAR TWICE A DAY E11.9 100 Strip 11 08/05/20 22 Active True Metrix Meter w/Device KitIndications:Type 2 diabetes mellitus with hemoglobin A1c goal of less than 7.0% ([facility]) TEST BLOOD SUGAR UP TO FOUR (4) TIMES DAILY--INSURA NCE ONLY ALLOWS ONCE DAILY TESTING Dx: E11.9 1 Kit 08/05/20 22 Active buPROPion HCl ER (XL) 150 MG Oral Tablet Extended Release 24 Hour (Wellbutrin XL)Indications:DEIDRE (generalized anxiety disorder) Take 1 Tablet by mouth in the morning. 30 Tablet 10/13/19 23 Active Triamcinolone Acetonide 0.1 % External Cream (Aristocort)Indications: Lichenified rash Apply topically to affected area 2 times a day. To affected area. 60 g 5 09/16/20 23 Active Budesonide-Formoterol Fumarate 80-4.5 MCG/ACT Inhalation Aerosol (Symbicort)Indications:M ild persistent asthma without complication Inhale 2 Puffs by mouth in the morning and 2 Puffs before bedtime. 10.2 g 11/03/19 24 Active Gabapentin 300 MG Oral Capsule (Neurontin) TAKE ONE (1) CAPSULE BY MOUTH FOUR (4) TIMES A DAY ( IN THE MORNING - NOON - IN THE EVENING - AT BEDTIME ) 120 Capsule 03/24/20 24 Active tiZANidine HCl 4 MG Oral Tablet (Zanaflex) TAKE 1 TABLET BY MOUTH TWICE DAILY - IN THE MORNING AND AT BEDTIME 60 Tablet 03/24/20 24 Active Albuterol Sulfate HFA 108 (90 Base) MCG/ACT Inhalation Aerosol SolutionIndications:Mild persistent asthma without complication Inhale 2 Puffs by mouth every 4 hours as needed for Wheezing or Shortness of Breath. 8.5 g 04/08/20 24 Active Rosuvastatin Calcium 10 MG Oral Tablet (Crestor)Indications:Pur e hypercholesterolemia TAKE ONE (1) TABLET BY MOUTH IN THE MORNING. 90 Tablet 3 04/21/20 24 Active Furosemide 20 MG Oral Tablet (Lasix) Take 1 Tablet by mouth in the morning. 30 Tablet 05/18/20 24 Active Lisinopril 5 MG Oral Tablet (Prinivil) TAKE ONE (1) TABLET BY MOUTH DAILY 90 Tablet 05/24/20 24 Active Montelukast Sodium 10 MG Oral Tablet (Singulair) TAKE ONE (1) TABLET BY MOUTH EVERY MORNING 90 Tablet 05/24/20 24 Active DULoxetine HCl 60 MG Oral Capsule Delayed Release Particles (Cymbalta) TAKE ONE (1) CAPSULE BY MOUTH DAILY -DO NOT CHEW CUT OR CRUSH 90 Capsule 05/24/20 24 Active traZODone HCl 50 MG Oral Tablet (Desyrel)Indications:Janett heena insomnia TAKE ONE (1) TABLET BY MOUTH DAILY AT BEDTIME 90 Tablet 1 05/24/20 24 Active metFORMIN HCl 1000 MG Oral Tablet (Glucophage) TAKE ONE (1) TABLET BY MOUTH TWICE A DAY WITH MORNING AND EVENING MEALS 180 Tablet 06/22/20 24 Active Jardiance 25 MG Oral Tablet (Empagliflozin)Indicatio ns:Type 2 diabetes mellitus with hemoglobin A1c goal of less than 7.0% (HCC) TAKE ONE (1) TABLET BY MOUTH DAILY 90 Tablet 06/22/20 24 Active Diclofenac Sodium 75 MG Oral Tablet Delayed Release (Voltaren)Indications:Ch ronic left hip pain,Spinal stenosis of lumbar region, unspecified whether neurogenic claudication present,Chronic pain of left knee Take 1 Tablet by mouth in the morning and 1 Tablet before bedtime. With food.. 60 Tablet 07/07/20 24 Active Ozempic (0.25 or 0.5 MG/DOSE) 2 MG/3ML Solution Pen-injector (Semaglutide(0.25 or 0.5MG/DOS))Indications:T ype 2 diabetes mellitus with hemoglobin A1c goal of less than 7.0% (HCC) Inject 0.25 mg weekly for 4 weeks, then increase to 0.5 mg weekly 3 mL 07/18/20 24 Active Omeprazole 40 MG Oral Capsule Delayed Release (PriLOSEC)Indications:Ga stroesophageal reflux disease without esophagitis TAKE 1 CAPSULE BY MOUTH 1 HOUR BEFORE FIRST MEAL OF THE DAY AND THEN ONE TAKE 1 CAPSULE EVENING MEAL 180 Capsule 1 07/20/20 24 Active LORazepam 0.5 MG Oral Tablet (Ativan)Indications:Anxi ety TAKE ONE (1) TABLET BY MOUTH AT BEDTIME NEEDED FOR ANXIETY 30 Tablet 07/21/20 24 Active HYDROcodone-Acetaminophe n 7.5-325 MG Oral TabletIndications:Chroni c pain syndrome,Chronic hip pain, unspecified laterality Take 1 Tablet by mouth every 6 hours as needed for Pain, Moderate. 120 Tablet 07/29/20 24 Active HYDROcodone-Acetaminophe n 7.5-325 MG Oral TabletIndications:Chroni c pain syndrome,Chronic hip pain, unspecified laterality Take 1 Tablet by mouth every 6 hours as needed for Pain, Moderate. 120 Tablet 06/29/20 024 Discontinued documented as of this encounter (statuses as of 07/29/2024) Active Problems Problem Noted Date Diagnosed Date MEDICATION USE AGREEMENT 09/16/2023 Overview: Vicoden 4 daily for his spinal stenosis and Lorazepam at hs for anxiety. HTN, goal below 140/90 09/16/2023 Morbid obesity due to excess calories 04/26/2020 DEIDRE (generalized anxiety disorder) 04/26/2020 ELROY (obstructive sleep apnea) 09/19/2019 Umbilical hernia without obstruction and without gangrene 09/19/2019 Body mass index (BMI) of 40.0 to 44.9 in adult 1 Overview: Per Obesity protocol #1 Type 2 diabetes mellitus wit h hemoglobin A1c goal of less than 7.0% 12/05/2017 Pure hypercholesterolemia 11/10/2017 Mild persistent asthma without complication 02/02 Dougherty's esophagus 07/28/2014 Chronic hip pain 06/28/2014 Lumbago 06/28/2014 Spinal stenosis of lumbar region 06/07/2013 Gastroesophageal reflux disease without esophagi tis documented as of this encounter (statuses as of 07/29/2024) Resolved Problems Problem Noted Date Diagnosed Date Resolved Date Hepatic cirrhosis 08/05/2022 04/08/2024 Morbid obesity, unspecified obesity type 06/29/2018 07/19/2018 Overview: Per Obesity protocol #1 High risk medication use 03/09/2017 documented as of this encounter (statuses as of 07/29/2024) Immunizations Name Administration Dates Next Due Hepatitis B, 20+ yrs 03/05/2010,11/05/2009,10/05 Pneumococcal Conjugate Vacc, 13 Valent (Prevnar) 02/01/2015 Pneumococcal Polysaccharide PPV23 (Pneumovax) 06/10/2017 Seasonal Influenza Vac., MDV , IM, 0.5 mL (Fluzone) 10/21/2013,05/24/2007 Seasonal Influenza, PF, 6 M & above, IM , (FluLaval or Fluzone) 08/05/2022,09/19/2019,06/29/2018 Seasonal Influenza, Quadriva lent, No Preserve, IM 07/24/2016,08/06/2015 Seasonal Influenza, Trivalen t, (IIV3), PF, (Fluzone) 07/07/2024 TD, Preservative Free 06/29/2018 TDAP, Age 7 and older, IM (Adacel) 05/24/2007 documented as of this encounter Social History Tobacco Use Types Packs/Day Years Used Date Smoking Tobacco: Never Smokeless Tobacco: Current Chew Alcohol Use Standard Drinks/Week Comments Yes 0 (1 standard drink = 0.6 oz pur e alcohol) occasionally PHQ-2 Answer Date Recorded PHQ Adult Total Score 0 09/16/2023 Hunger Vital Sign Answer Date Recorded Within the past 12 months, y ou worried that your food would run out before you got the money to buy more. Never true 09/16/20 23 Within the past 12 months, t he food you bought just didn't last and you didn't have money to get more. Never true 09/16/2023 Childcare Answer Date Recorded Do you feel overwhelmed with taking care of a child, family member or friend? No 09/16/2023 Does your family need help f inding childcare? (Household - for ages 0-17 years) Not on file 09/16/2023 Clothing Answer Date Recorded Have you been unable to get clothing when it was really needed? No 09/16/2023 Is your family able to get c lothes or diapers when needed? (Household - for ages 0-17 years) Not on file 09/16/2023 Personal Safety Answer Date Recorded Do you feel unsafe or have concerns for your saf ety? No 09/16/2023 Do you have concerns for you r family's safety? (Household - for ages 0-17 years) Not on file 09/16/2023 Utilities Answer Date Recorded Do you have trouble paying y our heating, water, or electric bill? No 09/16/2023 Is your family able to pay t he heat, water, or electric bill? (Household - for ages 0-17 years) Not on file 09/16/2023 Does your family have access to good internet? (Household - for ages 0-17 years) Not on file 09/16/2023 Employment Status Answer Date Recorded Are you unemployed or without regular income? No 09/16/2023 Does the household have a re gular source of income? (Household - for ages 0-17 years) Not on file 09/16/2023 Social Connections Answer Date Recorded How often do you feel lonely or isolated from th ose around you? Never 09/16/2023 Financial Resource Strain Answer Date R ecorded Do you have any trouble payi ng for your medications, or do you think you might in the future? No 09/16/2023 Does your family have troubl e paying for medicine? (Household - for ages 0-17 years) Not on file 09/16/2023 Transportation Needs Answer Date Record ed READ ONLY Do you have troubl e getting a ride to medical visits or work? Never True 09/16/2023 Does your family have a hard time getting a ride to doctors visits? (Household - for ages 0-17 years) Not on file 09/16/2023 Has lack of transportation k ept you from medical appointments, meetings, work, or from getting things needed for daily living? Check all that apply. (Adult - for ages 18 years and over) Not on file 09/16/2023 Do you (or your family) have trouble finding or paying for a ride (transportation)? (Household - for ages 0-17 years) Not on file 09/16/2023 Housing Stability Answer Date Recorded Do you currently live in a s helter or have no steady place to sleep at night? No 09/16/2023 READ ONLY Do you think you a re at risk of becoming homeless? No 09/16/2023 Does your family worry about paying for your home or becoming homeless? (Household - for ages 0-17 years) Not on file 1 11/17/2022 Are you homeless or worried that you might be in the future? (Adult - for ages 18 years and over) Not on file Are you (or your family) elizabeth eless or worried that you might be in the future? (Household - for ages 0-17 years) Not on file Food Insecurity Answer Date Recorded Do you need food for this week? No 09/16/2023 Are you able to get enough f ood for your family? (Household - for ages 0-17 years) Not on file 09/16/2023 Does your family need food t his week? (Household - for ages 0-17 years) Not on file 09/16/2023 Do you always have enough fo od for your family? (Household - for ages 0-17 years) Not on file 09/16/2023 Sex and Gender Information Value Date Recorded Sex Assigned at Male 12/27/2018 7:27 AM EDT Gender Identity Male 12/27/2018 7:27 AM EDT Sexual Orientation Straight 12/27/2018 7: 27 AM EDT Job Start Date Occupation Industry Not on file Not on file Not on file documented as of this encounter Miscellaneous Notes * Telephone Encounter - Bri Gomez PA-C - 07/29/2024 7:25 AM EDT Signed Prescriptions: Disp Refills HYDROcodone-Acetaminophen 7.5-325 MG Oral *120 Ta*0 Sig: Take 1 Tablet by mouth every 6 hours as needed for Pain, Moderate. Authorizing Provider: BRI GOMEZ * Telephone Encounter - Elba Ackerman [facility] - 07/29/2024 5:59 AM EDTPending Prescriptions: Disp Refills HYDROcodone-Acetaminophen 7.5-325 MG Oral *120 Ta*0 Sig: Take 1 Tablet by mouth every 6 hours as needed for Pain, Moderate. * Telephone Encounter - Elba Ackerman [facility] - 07/29/2024 5:56 AM EDT I have reviewed the patients controlled substance dispensing history in the Prescription Drug Monitoring Program in compliance with the [facility] regulations before prescribing a controlled substance. PDMP checked on 07/29/2024. Pending Prescriptions: Disp Refills HYDROcodone-Acetaminophen 7.5-325 MG Oral*120 Ta*0 Sig: TAKE ONE (1) TABLET BY MOUTH EVERY SIX (6) HOURS NEEDED FOR PAIN, MODERATE. Last Visit: 07/07/2024 (in office), Visit date not found (telemedicine) Next Visit: 10/10/2024 Date medication was last filled: 06/29/24 Date medication is due for refill: 07/28/24 Pharmacy: [facility] [id number] [place] Is this request for a controlled substance? Yes and Urine Drug Screen was completed Toxicology results: Results for orders placed or performed in visit on 12/30/23 PAIN MANAGEMENT DRUG PANEL, URINE W/ INTERPRETATION Result Value Compliance Interpretation Based on the medication information provided: The presence of THC metabolite is INCONSISTENT with the information provided. The presence of oxymorphone is INCONSISTENT with the information provided. The presence of lorazepam is CONSISTENT with lorazepam use. The presence of hydrocodone is CONSISTENT with hydrocodone use. The metabolites of hydrocodone (dihydrocodeine and hydromorphone) were also present in the urine but at a concentration below the limitof quantitation. Amphetamines Screen, U Negative Benzodiazepines Screen, U Refer to confirmation results (A) Cannabinoids Screen, U Refer to confirmation results (A) Cocaine Metabolite Screen, U Negative Fentanyl Screen, U Negative Hydrocodone Screen, U Refer to confirmation results (A) Methadone Metabolite Screen, U Negative Morphine/Codeine Screen, U Negative Oxycodone Screen, U Refer to confirmation results (A) Valid Interpretation Normal Creatinine, U 44 Narrative Cutoff Concentrations: Drug Level Amphetamines 500 ng/mL Benzodiazepines 100 ng/mL Cannabinoids 50 ng/mL Cocaine Metabolite 150 ng/mL Fentanyl 1 ng/mL Hydrocodone / Hydromorphone 300 ng/mL Methadone Metabolite 100 ng/mL Morphine / Codeine 300 ng/mL Oxycodone / Oxymorphone 100 ng/mL Screening results are presumptive and can only be used for medical purposes. Confirmatory testing is available upon request. Results for orders placed or performed during the hospital encounter of 10/13/21 TOXICOLOGY, URINE SCREEN W/ CONFIRMATION Result Value Amphetamines Screen, U Negative Benzodiazepines Screen, U Negative Cannabinoids Screen, U Positive (A) Cocaine Metabolite Screen, U Negative Hydrocodone Screen, U Positive (A) Methadone Metabolite Screen, U Negative Morphine/Codeine Screen, U Positive (A) Oxycodone Screen, U Negative Narrative Cutoff Concentrations: Drug Level Amphetamines 500 ng/mL Benzodiazepines 100 ng/mL Cannabinoids 50 ng/mL Cocaine Metabolite 150 ng/mL Hydrocodone / Hydromorphone 300 ng/mL Methadone Metabolite 100 ng/mL Morphine / Codeine 300 ng/mL Oxycodone / Oxymorphone 100 ng/mL Screening results are presumptive and can only be used for medical purposes. Positive screening results are reflexed to confirmatory testing. Results for orders placed or performed during the hospital encounter of 10/12/15 TOX URINE DRUG SCREEN ([facility] AND [facility] ONLY) Result Value AMPHETAMINES NEGATIVE BARBITURATES NEGATIVE BENZODIAZEPINES POSITIVE (A) CANNABINOIDS NEGATIVE COCAINE METABOLITE NEGATIVE MORPHINE/ CODEINE POSITIVE (A) METHADONE MEDICAL NEGATIVE OXYCODONE POSITIVE (A) KADE COMMENT THE ABOVE SCREENING RESULTS ARE PRESUMPTIVE AND CAN ONLY BE USED FOR MEDICAL PURPOSES. CONFIRMATORY TESTING IS AVAILABLE UPON REQUEST. CUTOFF CONCENTRATION Please approve if appropriate. Thank You, Elba Ackerman [facility] Clinical Pharmacist [facility] [phone] 07/29/2024, 5:56 AM documented in this encounter Plan of Treatment Upcoming Encounters Date Type Department Care Team (Late st Contact Info) Description 09/12/2024 1:00 PM EST Office Visit Pharmacy, [place] [address] [place] [address] [facility] [address] [place] [address] 09/29/2024 11:00 AM EST Office Visit Hepatology, [facility] [address] [place] [phone] Radha Alcocer DO [address] [place] [address] 10/10/2024 9:40 AM EST Office Visit [facility] [place] [address] [place] [address] Bri Gomez PA-C [address] [place] [address] Health Maintenance Due Date Last Done Comments Dougherty's Esophagus Surveilance 12/17/2018 12/18/2015, 12/18/2015, 07/10/2014, Additional history exists Cologuard 2020 Fecal Occult Blood Test 2020 Sigmoidoscopy 2020 COVID-19 Vaccine ( season) 2024 Colonoscopy 07/10/2024 07/10/2014, 07/10/2014 Colorectal Cancer Screening 07/10/2024 Depression Screening 09/16/2024 09/16/2023 Diabetic Eye Exam 09/16/2024 09/16/2023, , 02/16/2019 Diabetic Foot Exam 09/16/2024 09/16/2023, 1 10/05/2021, 05/27/2021, Additional history exists Albumin/Creatinine Ratio 10/27/2024 024, 08/05/2022, 09/19/2019, Additional history exists B-12 10/27/2024 10/27/2023, 11/0 10/2021, 12/07/2020, Additional history exists HbA1c 01/11/2025 07/13/2024, 07/0 02/2024, 10/27/2023, Additional history exists GFR 07/13/2025 07/13/2024, 07/0 02/2024, 10/27/2023, Additional history exists DTap/Tdap Vaccines (3 - Td or Tdap) 06/29/2028 06/29/2018, 05/24/2007 Lipid Panel 04/08/2029 04/08/2024, 10/06, 08/05/2022, Additional history exists Pneumococcal Vaccine: Pediatrics (0 to 5 Years) and At-Risk Patients (6 to 64 Years) (3 of 3 - PPSV23 or PCV20) 2040 06/10/2017, 02/01/2015 Hepatitis B Vaccine Completed 03/05/2010, 11/05/2009, 10/05/2009 Influenza Vaccine (FLU shot) Completed 12/2023, 08/05/2022, 09/19/2019, Additional history exists HPV (Gardasil) Vaccine Aged Out No lo nger eligible based on patient's age to complete this topic MENINGOCOCCAL (MENACTRA/MENVEO) Aged Out No longer eligible based on patient's age to complete this topic documented as of this encounter Medical Devices Not on filedocumented as of this encounter Visit Diagnoses Diagnosis Chronic pain syndrome Chronic hip pain, unspecified laterality documented in this encounter Care Teams Primary Care Nurse Relationship Specialty Start Date End Date Bri Gomez PA-C [address] [place] [address] PCP - General Physician Glass Technician/Installer 05/27/21 documented as of this encounter
--- OUTSIDE RECORDS SUMMARY | 2024-08-11 07:37 | External Medical Summary | Summary of Care ---
Author Name Unknown Organization [facility] Address [address] [place] [address] Phone [phone] Care Team Providers Care High School Science Tutor Name Role Phone Britni Gomez PA-C Primary Care Provider Reason for Visit * Reason Onset Date Comments Medication Question 07/20/2024 Encounter Details Date Type Department Care Team (Late st Contact Info) Description 07/20/[address] [facility] [address] [place] [address] Britni Gomez PA-C [address] [place] [address] Medication Question Allergies Active Allergy Reactions Criticality Noted Date Comments Aspirin 06/29/2018 Asthma Valium Nausea/vomiting,Othe r (Please comment) 05/09/2014 sweating documented as of this encounter (statuses as of 07/20/2024) Medications Medication Sig Dispensed Refills Start Date End Date Status ONETOUCH DELICA LANCETS 33G MISC USE DIRECTED TO TEST BLOOD SUGAR TWICE A DAY E11.9 100 Each 11 9 Active OneTouch Verio In Vitro Strip (Glucose Blood)Indications:Type 2 diabetes mellitus with hemoglobin A1c goal of less than 7.0% (HCC) USE DIRECTED TO TEST BLOOD SUGAR TWICE A DAY E11.9 100 Strip 11 2 Active True Metrix Meter w/Device KitIndications:Type 2 diabetes mellitus with hemoglobin A1c goal of less than 7.0% (HCC) TEST BLOOD SUGAR UP TO FOUR (4) TIMES DAILY--INSURAN CE ONLY ALLOWS ONCE DAILY TESTING Dx: E11.9 1 Kit 2 Active buPROPion HCl ER (XL) 150 MG Oral Tablet Extended Release 24 Hour (Wellbutrin XL)Indications:DEIDRE (generalized anxiety disorder) Take 1 Tablet by mouth in the morning. 30 Tablet 11 3 Active Triamcinolone Acetonide 0.1 % External Cream (Aristocort)Indications:L ichenified rash Apply topically to affected area 2 times a day. To affected area. 60 g 5 3 Active Budesonide-Formoterol Fumarate 80-4.5 MCG/ACT Inhalation Aerosol (Symbicort)Indications:Mi ld persistent asthma without complication Inhale 2 Puffs by mouth in the morning and 2 Puffs before bedtime. 10.2 g 4 Active Gabapentin 300 MG Oral Capsule (Neurontin) TAKE ONE (1) CAPSULE BY MOUTH FOUR (4) TIMES A DAY ( IN THE MORNING - NOON - IN THE EVENING - AT BEDTIME ) 120 Capsule 4 Active tiZANidine HCl 4 MG Oral Tablet (Zanaflex) TAKE 1 TABLET BY MOUTH TWICE DAILY - IN THE MORNING AND AT BEDTIME 60 Tablet 5 4 Active Albuterol Sulfate HFA 108 (90 Base) MCG/ACT Inhalation Aerosol SolutionIndications:Mild persistent asthma without complication Inhale 2 Puffs by mouth every 4 hours as needed for Wheezing or Shortness of Breath. 8.5 g 5 4 Active Rosuvastatin Calcium 10 MG Oral Tablet (Crestor)Indications:Pure hypercholesterolemia TAKE ONE (1) TABLET BY MOUTH IN THE MORNING. 90 Tablet 3 4 Active Furosemide 20 MG Oral Tablet (Lasix) Take 1 Tablet by mouth in the morning. 30 Tablet 4 Active Lisinopril 5 MG Oral Tablet (Prinivil) TAKE ONE (1) TABLET BY MOUTH DAILY 90 Tablet 1 4 Active Montelukast Sodium 10 MG Oral Tablet (Singulair) TAKE ONE (1) TABLET BY MOUTH EVERY MORNING 90 Tablet 1 4 Active DULoxetine HCl 60 MG Oral Capsule Delayed Release Particles (Cymbalta) TAKE ONE (1) CAPSULE BY MOUTH DAILY -DO NOT CHEW CUT OR CRUSH 90 Capsule 4 Active traZODone HCl 50 MG Oral Tablet (Desyrel)Indications:Prim mary insomnia TAKE ONE (1) TABLET BY MOUTH DAILY AT BEDTIME 90 Tablet 1 4 Active metFORMIN HCl 1000 MG Oral Tablet (Glucophage) TAKE ONE (1) TABLET BY MOUTH TWICE A DAY WITH MORNING AND EVENING MEALS 180 Tablet 1 4 Active Jardiance 25 MG Oral Tablet (Empagliflozin)Indication s:Type 2 diabetes mellitus with hemoglobin A1c goal of less than 7.0% (HCC) TAKE ONE (1) TABLET BY MOUTH DAILY 90 Tablet 1 4 Active LORazepam 0.5 MG Oral Tablet (Ativan)Indications:Anxie ty TAKE 1 TABLET BY MOUTH AT BEDTIME NEEDED FOR ANXIETY 30 Tablet 4 Active HYDROcodone-Acetaminophen 7.5-325 MG Oral TabletIndications:Chronic pain syndrome,Chronic hip pain, unspecified laterality Take 1 Tablet by mouth every 6 hours as needed for Pain, Moderate. 120 Tablet 4 Active Diclofenac Sodium 75 MG Oral Tablet Delayed Release (Voltaren)Indications:Chr onic left hip pain,Spinal stenosis of lumbar region, unspecified whether neurogenic claudication present,Chronic pain of left knee Take 1 Tablet by mouth in the morning and 1 Tablet before bedtime. With food.. 60 Tablet 5 4 Active Ozempic (0.25 or 0.5 MG/DOSE) 2 MG/3ML Solution Pen-injector (Semaglutide(0.25 or 0.5MG/DOS))Indications:Ty pe 2 diabetes mellitus with hemoglobin A1c goal of less than 7.0% ([facility]) Inject 0.25 mg weekly for 4 weeks, then increase to 0.5 mg weekly 3 mL 5 4 Active Omeprazole 40 MG Oral Capsule Delayed Release (PriLOSEC)Indications:Gas troesophageal reflux disease without esophagitis TAKE 1 CAPSULE BY MOUTH 1 HOUR BEFORE FIRST MEAL OF THE DAY AND THEN ONE TAKE 1 CAPSULE EVENING MEAL 180 Capsule 1 4 Active documented as of this encounter (statuses as of 07/20/2024) Active Problems Problem Noted Date Diagnosed Date [...] as of this encounter (statuses as of 07/20/2024) Resolved Problems Problem Noted Date Diagnosed Date Resolved Date Hepatic cirrhosis 08/05/2022 04/08/2024 Morbid obesity, unspecified obesity type 06/29/2018 07/19/2018 Overview: Per Obesity protocol #1 High risk medication use 03/09/2017 documented as of this encounter (statuses as of 07/20/2024) Immunizations Name Administration Dates Next Due Hepatitis [...] encounter Miscellaneous Notes * Telephone Encounter - Alma Delia Del Cid PHARM Tech - 07/20/2024 12:17 PM EDT Pharmacy calling in for the diagnosis code for the ozempic prescription that was transferred to them. Informed them of the code on the prescription. Alma Delia Villareal Breakfast Hostess II Centralized Clinical Pharmacy Services 07/20/2024 12:18 PM documented in this encounter Plan of Treatment Upcoming Encounters Date Type Department Care Team (Late st Contact Info) Description 09/12/2024 1:00 PM EST Office Visit Pharmacy, [place] [address] [place] [address] [place], [facility] [address] [place] [address] 09/29/2024 11:00 AM EST Office Visit Hepatology, [address] [phone] Radha Alcocer DO [address] [place] [address] 10/10/2024 9:40 AM EST Office Visit [facility] [address] [place] [phone] Britni Gomez PA-C [address] [place] [phone] Health Maintenance Due Date Last Done Comments [...] Not on filedocumented as of this encounter Care Teams High School Science Tutor Relationship Specialty Start Date End Date Britni Gomez PA-C [address] [place] [address] PCP - General Physician Expressive Music Therapist 05/27/21 documented as of this encounter
--- OUTSIDE RECORDS SUMMARY | 2024-08-11 07:37 | External Medical Summary | Summary of Care ---
Author Name Unknown Organization [facility] Address [address] [facility] [place] [address] Phone [phone] Care Team Providers Care Email Marketing Specialist Name Role Phone Bri Gomez PA-C Primary Care Provider Reason for Visit * Reason Comments eRx-Medication Refill Encounter Details Date Type Department Care Team (Late st Contact Info) Description 07/19/2024 Refill [facility] [address] [place] [address] John Paul Jensen Jr., [address] [place] [address] Anxiety Allergies Active Allergy Reactions Criticality Noted Date Comments Aspirin 06/29/2018 Asthma Valium Nausea/vomiting,Othe r (Please comment) 05/09/2014 sweating documented as of this encounter (statuses as of 07/21/2024) Medications Medication Sig Dispensed Refills Start Date [...] BY MOUTH IN THE MORNING. 90 Tablet 04/21/20 24 Active Furosemide 20 MG Oral [...] MORNING AND EVENING MEALS 180 Tablet 1 06/22/20 24 Active Jardiance 25 MG Oral Tablet (Empagliflozin)Indicatio ns:Type 2 diabetes mellitus with hemoglobin A1c goal of less than 7.0% (HCC) TAKE ONE (1) TABLET BY MOUTH DAILY 90 Tablet 1 06/22/20 24 Active HYDROcodone-Acetaminophe n 7.5-325 MG Oral TabletIndications:Chroni c pain syndrome,Chronic hip pain, unspecified laterality Take 1 Tablet by mouth every 6 hours as needed for Pain, Moderate. 120 Tablet 06/29/20 24 Active Diclofenac Sodium 75 MG Oral Tablet Delayed Release (Voltaren)Indications:Ch ronic left hip pain,Spinal stenosis of lumbar region, unspecified whether neurogenic claudication present,Chronic pain of left knee Take 1 Tablet by mouth in the morning and 1 Tablet before bedtime. With food.. 60 Tablet 5 07/07/20 24 Active Ozempic (0.25 or 0.5 MG/DOSE) 2 MG/3ML Solution Pen-injector (Semaglutide(0.25 or 0.5MG/DOS))Indications:T ype 2 diabetes mellitus with hemoglobin A1c goal of less than 7.0% ([facility]) Inject 0.25 mg weekly for 4 weeks, then increase to 0.5 mg weekly 3 mL 5 07/18/20 24 Active Omeprazole 40 MG Oral [...] FOR ANXIETY 30 Tablet 07/21/20 24 Active LORazepam 0.5 MG Oral Tablet (Ativan)Indications:Anxi ety TAKE 1 TABLET BY MOUTH AT BEDTIME NEEDED FOR ANXIETY 30 Tablet 06/22/20 24 024 Discontinued documented as of this encounter (statuses as of 07/21/2024) Active Problems Problem Noted Date Diagnosed Date [...] as of this encounter (statuses as of 07/21/2024) Resolved Problems Problem Noted Date Diagnosed Date Resolved Date Hepatic cirrhosis 08/05/2022 04/08/2024 Morbid obesity, unspecified obesity type 06/29/2018 07/19/2018 Overview: Per Obesity protocol #1 High risk medication use 03/09/2017 documented as of this encounter (statuses as of 07/21/2024) Immunizations Name Administration Dates Next Due Hepatitis [...] Telephone Encounter - Bri Gomez PA-C - 07/21/2024 8:51 AM EDT Signed Prescriptions: Disp Refills LORazepam 0.5 MG Oral Tablet (Ativan) 30 Tab*0 Sig: TAKE ONE (1) TABLET BY MOUTH AT BEDTIME NEEDED FOR ANXIETY Authorizing Provider: BRI GOMEZ * Telephone Encounter - Mana Lee RP - 07/21/2024 8:37 AM EDT Pending Prescriptions: Disp Refills LORazepam 0.5 MG Oral Tablet [Pharmacy Med*30 Tab*0 Sig: TAKE ONE (1) TABLET BY MOUTH AT BEDTIME NEEDED FOR ANXIETY * Telephone Encounter - Mana Lee RP - 07/21/2024 8:35 AM EDT I have reviewed the patients controlled substance dispensing history in the Prescription Drug Monitoring Program in compliance with the [facility] regulations before prescribing a controlled substance. PDMP checked on 07/21/2024. Pending Prescriptions: Disp Refills LORazepam 0.5 MG Oral Tablet (Ativan) [Ph*30 Tab*0 Sig: TAKE ONE (1) TABLET BY MOUTH AT BEDTIME NEEDED FOR ANXIETY Last Visit: 07/07/2024 (in office), Visit date not found (telemedicine) Next Visit: 10/10/2024 Date medication was last filled: 06/29/24 Date medication is due for refill: 07/27/24 Pharmacy: [facility] [id number] [place] Is this request [...] REQUEST. CUTOFF CONCENTRATION Please approve if appropriate. Mana Almanza [facility] Clinical Pharmacist Centralized Clinical Pharmacy Services ([facility]PS) [phone] documented in this encounter Plan of Treatment Upcoming Encounters Date Type Department Care Team (Late st Contact Info) Description 09/12/2024 1:00 PM EST Office Visit Pharmacy, [place] [address] [place] [address] [facility] [address] [place] [address] 09/29/2024 11:00 AM EST Office Visit Hepatology, [facility] [place] [address] [phone] Radha Alcocer DO [address] [place] [address] 10/10/2024 9:40 AM EST Office Visit [address] [place] [address] Bri Gomez PA-C [address] [place] [address] Health Maintenance Due Date Last Done Comments [...] as of this encounter Visit Diagnoses Diagnosis Anxiety Anxiety state, unspecified documented in this encounter Care Teams Email Marketing Specialist Relationship Specialty Start Date End Date Bri Gomez PA-C [address] [place] [phone] PCP - General Physician Labor Trainer 05/27/21 documented as of this encounter
--- OUTSIDE RECORDS SUMMARY | 2024-08-11 07:38 | External Medical Summary ---
Author Name Unknown Address Unknown Organization K01:[facility] - [address] [facility] [address] Laboratory Report Ordering Provider Test Date Status BRIYOSSI ESCOBAR 07/13/2024 08:28:17 Final Observation Date Value Abnormality Reference (Units ) Status HbA1C 07/13/2024 08:28:17 6.9 Above high normal 4. 0-5.6 (%) Final The use of HbA1c to monitor glycemic status is based on normal hemoglobin and HbA composition. This test should not be used in patients with abnormal hemoglobin that affects the half life of the red blood cell or the in vivo glycation rates. Glucose, estimated average 07/13/2024 08:28:17 151 Above high normal <126 (mg/dL) Franklyn durand Performing Location [facility] - [address] [place] [address]
--- OUTSIDE RECORDS SUMMARY | 2024-08-11 07:38 | External Medical Summary | Summary of Care ---
Author Name Unknown Organization [facility] Address [address] [place] [facility] [place] [address] Phone [phone] Care Team Providers Care Grip Wrapper Name Role Phone Bri Gomez PA-C Primary Care Provider Reason for Visit * Reason Comments eRx-Medication Refill Encounter Details Date Type Department Care Team (Late st Contact Info) Description 06/28/2024 Refill [facility][1] [address] [place] [address] Bri Gomez PA-C [address] [place] [address] Chronic pain syndrome; Chronic hip pain, unspecified laterality Allergies Active Allergy Reactions Criticality Noted Date Comments Aspirin 06/29/2018 Asthma Valium Nausea/vomiting,Othe r (Please comment) 05/09/2014 sweating documented as of this encounter (statuses as of 06/29/2024) Medications Medication Sig Dispensed Refills Start Date End Date Status ONETOUCH DELICA LANCETS 33G MISC USE DIRECTED TO TEST BLOOD SUGAR TWICE A DAY E11.9 100 Each 11 12/23/19 19 Active OneTouch Verio In Vitro Strip (Glucose Blood)Indications:Type 2 diabetes mellitus with hemoglobin A1c goal of less than 7.0% ([facility]) USE DIRECTED TO TEST BLOOD SUGAR TWICE A DAY E11.9 100 Strip 11 08/05/20 22 Active True Metrix Meter w/Device KitIndications:Type 2 diabetes mellitus with hemoglobin A1c goal of less than 7.0% ([facility]) TEST BLOOD SUGAR UP TO FOUR (4) TIMES DAILY--INSURA NCE ONLY ALLOWS ONCE DAILY TESTING Dx: E11.9 1 Kit 08/05/20 22 Active buPROPion HCl ER (XL) 150 MG Oral Tablet Extended Release 24 Hour (Wellbutrin XL)Indications:DEIDRE (generalized anxiety disorder) Take 1 Tablet by mouth in the morning. 30 Tablet 11 10/13/19 23 Active Triamcinolone Acetonide 0.1 % External Cream (Aristocort)Indications: Lichenified rash Apply topically to affected area 2 times a day. To affected area. 60 g 5 09/16/20 23 Active Budesonide-Formoterol Fumarate 80-4.5 MCG/ACT Inhalation Aerosol (Symbicort)Indications:M ild persistent asthma without complication Inhale 2 Puffs by mouth in the morning and 2 Puffs before bedtime. 10.2 g 11/03/19 24 Active Omeprazole 40 MG Oral Capsule Delayed Release (PriLOSEC)Indications:Ga stroesophageal reflux disease without esophagitis TAKE ONE (1) CAPSULE BY MOUTH ONE (1) HOUR BEFORE FIRST MEAL OF THE DAY THEN ONE (1) CAPSULE BEFORE EVENING MEAL 180 Capsule 01/22/20 24 Active Gabapentin 300 MG Oral Capsule [...] TABLET BY MOUTH DAILY 90 Tablet 1 05/24/20 24 Active Montelukast Sodium 10 MG Oral Tablet (Singulair) TAKE ONE (1) TABLET BY MOUTH EVERY MORNING 90 Tablet 1 05/24/20 24 Active DULoxetine HCl 60 MG Oral Capsule Delayed Release Particles (Cymbalta) TAKE ONE (1) CAPSULE BY MOUTH DAILY -DO NOT CHEW CUT OR CRUSH 90 Capsule 1 05/24/20 24 Active traZODone HCl 50 MG [...] hemoglobin A1c goal of less than 7.0% ([facility]) TAKE ONE (1) TABLET BY MOUTH DAILY 90 Tablet 1 06/22/20 24 Active LORazepam 0.5 MG Oral Tablet (Ativan)Indications:Anxi ety TAKE 1 TABLET BY MOUTH AT BEDTIME NEEDED FOR ANXIETY 30 Tablet 06/22/20 24 Active HYDROcodone-Acetaminophe n 7.5-325 MG Oral TabletIndications:Chroni c pain syndrome,Chronic hip pain, unspecified laterality Take 1 Tablet by mouth every 6 hours as needed for Pain, Moderate. 120 Tablet 06/29/20 24 Active HYDROcodone-Acetaminophe n 7.5-325 MG Oral TabletIndications:Chroni c pain syndrome,Chronic hip pain, unspecified laterality Take 1 Tablet by mouth every 6 hours as needed for Pain, Moderate. 120 Tablet 05/30/20 24 024 Discontinued documented as of this encounter (statuses as of 06/29/2024) Active Problems Problem Noted Date Diagnosed Date [...] as of this encounter (statuses as of 06/29/2024) Resolved Problems Problem Noted Date Diagnosed Date Resolved Date Hepatic cirrhosis 08/05/2022 04/08/2024 Morbid obesity, unspecified obesity type 06/29/2018 07/19/2018 Overview: Per Obesity protocol #1 High risk medication use 03/09/2017 documented as of this encounter (statuses as of 06/29/2024) Immunizations Name Administration Dates Next Due Hepatitis B, 20+ yrs 03/05/2010,11/05/2009,10/05 Pneumococcal Conjugate Vacc, 13 Valent (Prevnar) 02/01/2015 Pneumococcal Polysaccharide PPV23 (Pneumovax) 06/10/2017 Seasonal Influenza, PF, 6 M & above, IM , (FluLaval or Fluzone) 08/05/2022,09/19/2019,06/29/2018 Seasonal Influenza, Quadriva lent, No Preserve, IM 07/24/2016,08/06/2015 Seasonal Influenza, Trivalen t, (IIV3), with Preserv, (Fluzone) 10/21/2013,05/24/2007 TD, Preservative Free 06/29/2018 TDAP, Age 7 [...] Telephone Encounter - Bri Gomez PA-C - 06/29/2024 1:19 PM EDT Signed Prescriptions: Disp Refills HYDROcodone-Acetaminophen 7.5-325 MG Oral *120 Ta*0 Sig: Take 1 Tablet by mouth every 6 hours as needed for Pain, Moderate. Authorizing Provider: BRI GOMEZ * Telephone Encounter - Elizabet Sood [facility] - 06/29/2024 11:13 AM EDT Pending Prescriptions: Disp Refills HYDROcodone-Acetaminophen 7.5-325 MG Oral *120 Ta*0 Sig: Take 1 Tablet by mouth every 6 hours as needed for Pain, Moderate. * Telephone Encounter - Elizabet Sood [facility] - 06/29/2024 11:09 AM EDT I have reviewed the patients controlled substance dispensing history in the Prescription Drug Monitoring Program in compliance with the [facility] regulations before prescribing a controlled substance. PDMP checked on 06/29/2024. Pending Prescriptions: Disp Refills HYDROcodone-Acetaminophen 7.5-325 MG Oral*120 Ta*0 Sig: TAKE 1 TABLET BY MOUTH EVERY 6 HOURS NEEDED FOR PAIN Last Visit: 04/08/2024 (in office), Visit date not found (telemedicine) Next Visit: 10/10/2024 Date medication was last filled: 05/30/24 Date medication is due for refill: 06/28/24 Pharmacy: [facility] [id number] [place] Is this request for a controlled substance? Yes and Urine Drug Screen was completed Toxicology results: Results for orders placed or performed in visit on 03/27/24 PAIN MANAGEMENT DRUG PANEL, URINE W/ INTERPRETATION [...] encounter of 10/12/15 TOX URINE DRUG SCREEN ([facility] ONLY) Result Value AMPHETAMINES NEGATIVE BARBITURATES NEGATIVE BENZODIAZEPINES POSITIVE (A) CANNABINOIDS NEGATIVE COCAINE METABOLITE NEGATIVE MORPHINE/ CODEINE POSITIVE (A) METHADONE MEDICAL NEGATIVE OXYCODONE POSITIVE (A) KADE COMMENT THE ABOVE SCREENING RESULTS ARE PRESUMPTIVE AND CAN ONLY BE USED FOR MEDICAL PURPOSES. CONFIRMATORY TESTING IS AVAILABLE UPON REQUEST. CUTOFF CONCENTRATION Please approve if appropriate. Thank you, Elizabet Sood, PharmD Clinical Pharmacist Centralized Clinical Pharmacy Services ([facility]PS) [phone] 06/29/2024, 11:11 AM documented in this encounter Plan of Treatment Upcoming Encounters Date Type Department Care Team (Late st Contact Info) Description 09/29/2024 11:00 AM EST Office Visit Hepatology, [address] [phone] Radha Alcocer, [address] [place] [address] 10/10/2024 9:40 AM EST Office Visit [facility][1] [address] [place] [phone] Bri Gomez PA-C [address] [place] [phone] Health Maintenance Due Date Last Done Comments Dougherty's Esophagus Surveilance 12/17/2018 12/18/2015, 12/18/2015, 07/10/2014, Additional history exists Cologuard 2020 Fecal Occult Blood Test 2020 Sigmoidoscopy 2020 COVID-19 Vaccine ( season) 2024 Influenza Vaccine (FLU shot) (#1) 2024 08/05/2022, 09/19/2019, 06/29/2018, Additional history exists Colonoscopy 07/10/2024 07/10/2014, 07/10/2014 Colorectal Cancer Screening 07/10/2024 Depression Screening 09/16/2024 09/16/2023 Diabetic Eye Exam 09/16/2024 09/16/2023, , 02/16/2019 Diabetic Foot Exam 09/16/2024 09/16/2023, 1 10/05/2021, 05/27/2021, Additional history exists HbA1c 10/09/2024 04/08/2024, 10/06, 08/05/2022, Additional history exists Albumin/Creatinine Ratio 10/27/2024 024, 08/05/2022, 09/19/2019, Additional history exists B-12 10/27/2024 10/27/2023, 11/0 10/2021, 12/07/2020, Additional history exists GFR 04/08/2025 04/08/2024, 10/06, 08/05/2022, Additional history exists DTap/Tdap Vaccines (3 - Td or Tdap) 06/29/2028 06/29/2018, 05/24/2007 Lipid Panel 04/08/2029 04/08/2024, 10/06, 08/05/2022, Additional history exists Pneumococcal Vaccine: Pediatrics (0 to 5 Years) and At-Risk Patients (6 to 64 Years) (3 of 3 - PPSV23 or PCV20) 2040 06/10/2017, 02/01/2015 Hepatitis B Vaccine Completed 03/05/2010, 11/05/2009, 10/05/2009 HPV (Gardasil) Vaccine Aged Out No lo nger eligible based on patient's age to complete this topic MENINGOCOCCAL (MENACTRA/MENVEO) Aged Out No longer eligible based on patient's age to complete this topic documented as of this encounter Medical Devices Not on filedocumented as of this encounter Visit Diagnoses Diagnosis Chronic pain syndrome Chronic hip pain, unspecified laterality documented in this encounter Care Teams Grip Wrapper Relationship Specialty Start Date End Date Bri Gomez PA-C [address] [place] [address] PCP - General Physician Manager Marketing Sales 05/27/21 documented as of this encounter
--- OUTSIDE RECORDS SUMMARY | 2024-08-11 07:38 | External Medical Summary ---
Author Name Unknown Address Unknown Organization K01:[facility] [place] [address] [facility] [address] Laboratory Report Ordering Provider Test Date Status YOSSI GREGORY 07/13/2024 08:28:17 Final Observation Date Value Abnormality Reference (Units ) Status BUN 07/13/2024 08:28:17 19 6-20 (mg/dL) Final Creatinine 07/13/2024 08:28:17 1.0 0.6-1.2 (mg/dL) Final Glomerular filtration rate/1.73 sq M.predicted [Volume Rate/Area] in Serum, Plasma or Blood by Creatinine-based formula (CKD-EPI) 07/13/2024 08:28:17 89 >=60 (mL/min) Final eGFR is calculated based on the CKD-EPI 2020 equation. Sodium 07/13/2024 08:28:17 140 135-146 (m mol/L) Final Potassium 07/13/2024 08:28:17 4.7 3.5-5.1 (m mol/L) Final Cl 07/13/2024 08:28:17 100 98-107 (mm ol/L) Final CO2 07/13/2024 08:28:17 26 22-32 (mmo l/L) Final Anion gap 07/13/2024 08:28:17 14 7-15 (mmol /L) Final Glucose 07/13/2024 08:28:17 145 Above high normal 70 -120 (mg/dL) Final Albumin 07/13/2024 08:28:17 3.9 3.8-5.0 (g /dL) Final AST (Aspartate aminotransferase) 07/13/2024 08:28:17 47 10-50 (U/L) Fin al Alk Phos 07/13/2024 08:28:17 191 Above high normal 35 -130 (U/L) Final Bilirubin, Total 07/13/2024 08:28:17 0.6 <=1 .2 (mg/dL) Final Calcium 07/13/2024 08:28:17 9.8 8.4-10.2 ( mg/dL) Final Protein 07/13/2024 08:28:17 6.8 6.0-8.3 (g /dL) Final ALT (Alanine aminotransferase) 07/13/2024 08:28:17 23 10-50 (U/L) Franklyn durand Performing Location [facility] [address] [facility] [id number]
--- OUTSIDE RECORDS SUMMARY | 2024-08-11 07:38 | External Medical Summary | Summary of Care ---
Author Name Unknown Organization [facility] Address [address] [place] [address] Phone [phone] Care Team Providers Care Associate Justice Name Role Phone Britni Gomez PA-C Primary Care Provider Reason for Visit * Reason Comments Outpatient Testing Encounter Details Date Type Department Care Team (Late st Contact Info) Description 07/13/2024 8:50 AM EDT Laboratory Laboratory, [place] [address] [facility] [address] [place] [phone] [place], Lab [facility] [address] [place] [address] HTN, goal below 140/90; Type 2 diabetes mellitus with hemoglobin A1c goal of less than 7.0% (HCC) Allergies Active Allergy Reactions Criticality Noted Date Comments Aspirin 06/29/2018 Asthma Valium Nausea/vomiting,Othe r (Please comment) 05/09/2014 sweating documented as of this encounter (statuses as of 07/13/2024) Medications Medication Sig Dispensed Refills Start Date [...] goal of less than 7.0% ([facility]) TEST BLOOD SUGAR UP TO FOUR [...] and 2 Puffs before bedtime. 10.2 g 12 4 Active Omeprazole 40 MG Oral Capsule Delayed Release (PriLOSEC)Indications:Gas troesophageal reflux disease without esophagitis TAKE ONE (1) CAPSULE BY MOUTH ONE (1) HOUR BEFORE FIRST MEAL OF THE DAY THEN ONE (1) CAPSULE BEFORE EVENING MEAL 180 Capsule 1 4 Active Gabapentin 300 MG Oral Capsule (Neurontin) TAKE ONE (1) CAPSULE BY MOUTH FOUR (4) TIMES A DAY ( IN THE MORNING - NOON - IN THE EVENING - AT BEDTIME ) 120 Capsule 5 4 Active tiZANidine HCl 4 MG Oral [...] mouth in the morning. 30 Tablet 11 4 Active Lisinopril 5 MG Oral Tablet (Prinivil) TAKE ONE (1) TABLET BY MOUTH DAILY 90 Tablet 1 08/20/202 4 Active Montelukast Sodium 10 MG Oral Tablet (Singulair) TAKE ONE (1) TABLET BY MOUTH EVERY MORNING 90 Tablet 1 4 Active DULoxetine HCl 60 MG Oral Capsule Delayed Release Particles (Cymbalta) TAKE ONE (1) CAPSULE BY MOUTH DAILY -DO NOT CHEW CUT OR CRUSH 90 Capsule 1 4 Active traZODone HCl 50 MG Oral [...] With food.. 60 Tablet 5 4 Active documented as of this encounter (statuses as of 07/13/2024) Active Problems Problem Noted Date Diagnosed Date [...] as of this encounter (statuses as of 07/13/2024) Resolved Problems Problem Noted Date Diagnosed Date Resolved Date Hepatic cirrhosis 08/05/2022 04/08/2024 Morbid obesity, unspecified obesity type 06/29/2018 07/19/2018 Overview: Per Obesity protocol #1 High risk medication use 03/09/2017 documented as of this encounter (statuses as of 07/13/2024) Immunizations Name Administration Dates Next Due Hepatitis [...] No 09/16/2023 Does the household have a [facility] source of income? (Household - for ages [...] on file documented as of this encounter Plan of Treatment Upcoming Encounters Date Type Department Care Team (Late st Contact Info) Description 09/29/2024 11:00 AM EST Office Visit Hepatology, [place] [address] [place], [place] [address] [phone] Radha Alcocer DO [address] [place] [address] 10/10/2024 9:40 AM EST Office Visit [facility] [address] [place] [address] Britni Gomez PA-C [address] [place] [phone] Pending Results Name Type Priority Associated Diagnoses Date /Time COMPREHENSIVE METABOLIC PANEL Lab Routine HTN, goal below 140/90 Type 2 diabetes mellitus with hemoglobin A1c goal of less than 7.0% (HCC) 07/13/2024 8:28 AM EDT HEMOGLOBIN A1C Lab Routine Type 2 diabetes mellitus with hemoglobin A1c goal of less than 7.0% ([facility]) 07/13/2024 8:28 AM EDT Health Maintenance Due Date Last Done Comments [...] as of this encounter Visit Diagnoses Diagnosis HTN, goal below 140/90 Unspecified essential hypertension Type 2 diabetes mellitus with hemoglobin A1c goal of less than 7.0% (HCC) documented in this encounter Care Teams Associate Justice Relationship Specialty Start Date End Date Britni Gomez PA-C [address] [place] [id number] PCP - General Physician Housekeeping Cleaner 05/27/21 documented as of this encounter
--- OUTSIDE RECORDS SUMMARY | 2024-08-11 07:38 | External Medical Summary | Summary of Care ---
Author Name Unknown Organization [facility] Address [address] [facility] [place] [address] Phone [phone] Care Team Providers Care Firm Administrator Name Role Phone Britni Gomez PA-C Primary Care Provider Reason for Visit * Reason Onset Date Comments Acute Pt arrived for c /o back and feet pain that has been ongoing. Medication Administration 07/07/2024 Flu an d/or Pneumo Inj Encounter Details Date Type Department Care Team (Late st Contact Info) Description 07/07/2024 10:40 AM EDT Office Visit [facility] [address] [place] [address] Britni Gomez PA-C [address] [place] [address] Spinal stenosis of lumbar region, unspecified whether neurogenic claudication present*; Chronic left hip pain; Chronic pain of left knee; HTN, goal below 140/90; Type 2 diabetes mellitus with hemoglobin A1c goal of less than 7.0% ([facility]); Need for prophylactic vaccination and inoculation against influenza; Screening for colon cancer Allergies Active Allergy Reactions Criticality Noted Date Comments Aspirin 06/29/2018 Asthma Valium Nausea/vomiting,Othe r (Please comment) 05/09/2014 sweating documented as of this encounter (statuses as of 07/07/2024) Medications Medication Sig Dispensed Refills Start Date End Date Status ONETOUCH DELICA LANCETS 33G MISC USE DIRECTED TO TEST BLOOD SUGAR TWICE A DAY E11.9 100 Each 11 9 Active OneTouch Verio In Vitro Strip (Glucose Blood)Indications:Type 2 diabetes mellitus with hemoglobin A1c goal of less than 7.0% ([facility]) USE DIRECTED TO TEST BLOOD SUGAR TWICE A DAY E11.9 100 Strip 11 2 Active True Metrix Meter w/Device KitIndications:Type 2 diabetes mellitus with hemoglobin A1c goal of less than 7.0% ([facility]) TEST BLOOD SUGAR UP TO FOUR (4) [...] 4 Active Jardiance 25 MG Oral Tablet (Empagliflozin)Indicatio ns:Type 2 diabetes mellitus with hemoglobin A1c goal of less than 7.0% (HCC) TAKE ONE (1) TABLET BY MOUTH DAILY 90 Tablet 1 4 Active LORazepam 0.5 MG Oral Tablet (Ativan)Indications:Anxi ety TAKE 1 TABLET BY MOUTH AT BEDTIME NEEDED FOR ANXIETY 30 Tablet 4 Active HYDROcodone-Acetaminophe n 7.5-325 MG Oral TabletIndications:Chroni [...] With food.. 60 Tablet 5 4 Active Cephalexin 500 MG Oral Capsule (Keflex)Indications:Cell ulitis of right lower extremity Take 1 Capsule by mouth in the morning and 1 Capsule at noon and 1 Capsule in the evening and 1 Capsule before bedtime. Do all this for 10 days. 40 Capsule 4 07/07/20 24 Discontinu ed(Medicat ion List Clean Up) Cephalexin 500 MG Oral Capsule (Keflex) Take 1 Capsule by mouth in the morning and 1 Capsule at noon and 1 Capsule before bedtime. Do all this for 10 days. 30 Capsule 4 07/07/20 24 Discontinu ed(Medicat ion List Clean Up) documented as of this encounter (statuses as of 07/07/2024) Active Problems Problem Noted Date Diagnosed Date [...] 11/10/2017 Mild persistent asthma without complication 02/02 Vicente's esophagus 07/28/2014 Chronic hip pain 06/28/2014 Lumbago 06/28/2014 Spinal stenosis of lumbar region 06/07/2013 Gastroesophageal reflux disease without esophagi tis documented as of this encounter (statuses as of 07/07/2024) Resolved Problems Problem Noted Date Diagnosed Date Resolved Date Hepatic cirrhosis 08/05/2022 04/08/2024 Morbid obesity, unspecified obesity type 06/29/2018 07/19/2018 Overview: Per Obesity protocol #1 High risk medication use 03/09/2017 documented as of this encounter (statuses as of 07/07/2024) Immunizations Name Administration Dates Next Due Hepatitis [...] on file documented as of this encounter Last Filed Vital Signs Vital Sign Reading Time Taken Comments Blood Pressure 128/72 07/07/2024 10:56 AM EDT Pulse 88 07/07/2024 10:56 AM EDT Temperature 36.6 C (97.9 F) 07/07/2024 1 0:56 AM EDT Respiratory Rate 20 07/07/2024 10:5 6 AM EDT Oxygen Saturation 96% 07/07/2024 10: 56 AM EDT Inhaled Oxygen Concentration - - Weight 125.9 kg (277 lb 9.6 oz) 024 10:56 AM EDT Height 175.3 cm (5' 9.02") 07/07/2024 1 0:56 AM EDT Body Mass Index 40.98 07/07/2024 10:56 AM EDT documented in this encounter Progress Notes * Britni Gomez PA-C - 07/07/2024 11:07 AM EDT Subjective: Anand Sales is a 48 year old male. Chief Complaint Patient presents with Acute Pt arrived for c/o back and feet pain that has been ongoing. Medication Administration Flu and/or Pneumo Inj HPI: Patient is a 48 year old white male who presents for ongoing back and leg pain. He fell out ofbed> 6 months ago and has pain in the left side of his pain with radiation down left leg to point where the leg gives out. Left lateral thigh is numb, left knee is painful and locks up. He has been to IPM in the past but it was prior to his last surgeries. Dr. Chente Marroquin did his surgery(2012?) [address] Did his hip Sugars are in the 140-150 range. May benefit from GLP-1 for the sugar control and weight loss No personal or family history of medullary thyroid cancer Latest Ref Rng 08/05/2022 10/13/2022 10/27/2023 04/08/2024 CHEMISTRY:LAB SODIUM 135 - 146 mmol/L 135 135 134 (L) POTASSIUM 3.5 - 5.1 mmol/L 4.3 4.5 4.3 CHLORIDE 98 - 107 mmol/L 97 (L) 99 95 (L) CO2 22 - 32 mmol/L 24 25 25 ANION GAP 7 - 15 mmol/L 14 11 14 BUN 6 - 20 mg/dL 10 14 13 CREATININE 0.6 - 1.2 mg/dL 0.7 0.8 0.8 GLUCOSE 70 - 120 mg/dL 76 149 (H) 132 (H) CALCIUM 8.4 - 10.2 mg/dL 10.0 9.2 9.7 Magnesium 1.5 - 2.6 mg/dL 2.1 Ketone, Urine Negative mg/dL ALT 10 - 50 U/L 60 (H) 42 23 Bilirubin, Total <=1.2 mg/dL 0.7 0.5 0.6 Bilirubin, Direct 0.0 - 0.3 mg/dL 0.2 Alkaline Phosphatase 35 - 130 U/L 217 (H) 173 (H) 180 (H) AST 10 - 50 U/L 94 (H) 56 (H) 40 Lipase 16 - 63 U/L Protein 6.0 - 8.3 g/dL 7.4 6.7 7.6 Albumin 3.8 - 5.0 g/dL 4.6 4.2 4.0 LIPIDS:LAB CHOLESTEROL <200 mg/dL 168 142 125 HDL-CHOLESTEROL >39 mg/dL 55 46 38 (L) TRIGLYCERIDES <=174 mg/dL 151 109 103 Cholesterol-HDL Ratio LDL (CALCULATED) <=129 mg/dL 83 74 66 DIABETES:LAB HEMOGLOBIN A1C 4.0 - 5.6 % 6.2 (H) 6.8 (H) 6.3 (H) GLUCOSE 70 - 120 mg/dL 76 149 (H) 132 (H) Ketone, Urine Negative mg/dL Legend: (L) Low (H) High PMH: Patient Active Problem List Diagnosis Gastroesophageal reflux disease without esophagitis Chronic hip pain Lumbago Vicente's esophagus MEDICATION USE AGREEMENT Spinal stenosis of lumbar region Mild persistent asthma without complication Pure hypercholesterolemia Type 2 diabetes mellitus with hemoglobin A1c goal of less than 7.0% ([facility]) Body mass index (BMI) of 40.0 to 44.9 in adult ([facility]) ELROY (obstructive sleep apnea) Umbilical hernia without obstruction and without gangrene Morbid obesity due to excess calories ([facility]) DEIDRE (generalized anxiety disorder) HTN, goal below 140/90 Current Outpatient Medications Medication Sig Dispense Refill ONETOUCH DELSimpleTherapy LANCETS 33G MISC USE DIRECTED TO TEST BLOOD SUGAR TWICE A DAY E11.9 100 Each 11 OneTouch Verio In Vitro Strip (Glucose Blood) USE DIRECTED TO TEST BLOOD SUGAR TWICE A DAY E11.9100 Strip 11 True Metrix Meter w/Device Kit TEST BLOOD SUGAR UP TO FOUR (4) TIMES DAILY--INSURANCE ONLY ALLOWS ONCE DAILY TESTING Dx: E11.9 1 Kit 0 buPROPion HCl ER (XL) 150 MG Oral Tablet Extended Release 24 Hour (Wellbutrin XL) Take 1 Tablet by mouth in the morning. 30 Tablet 11 Triamcinolone Acetonide 0.1 % External Cream (Aristocort) Apply topically to affected area 2 times a day. To affected area. 60 g 5 Budesonide-Formoterol Fumarate 80-4.5 MCG/ACT Inhalation Aerosol (Symbicort) Inhale 2 Puffs by mouth in the morning and 2 Puffs before bedtime. 10.2 g 12 Omeprazole 40 MG Oral Capsule Delayed Release (PriLOSEC) TAKE ONE (1) CAPSULE BY MOUTH ONE (1) HOURBEFORE FIRST MEAL OF THE DAY THEN ONE (1) CAPSULE BEFORE EVENING MEAL 180 Capsule 1 Gabapentin 300 MG Oral Capsule (Neurontin) TAKE ONE (1) CAPSULE BY MOUTH FOUR (4) TIMES A DAY ( IN THE MORNING - NOON - IN THE EVENING - AT BEDTIME ) 120 Capsule 5 Albuterol Sulfate HFA 108 (90 Base) MCG/ACT Inhalation Aerosol Solution Inhale 2 Puffs by mouth every 4 hours as needed for Wheezing or Shortness of Breath. 8.5 g 5 Rosuvastatin Calcium 10 MG Oral Tablet (Crestor) TAKE ONE (1) TABLET BY MOUTH IN THE MORNING. 90 Tablet 3 Furosemide 20 MG Oral Tablet (Lasix) Take 1 Tablet by mouth in the morning. 30 Tablet 11 Lisinopril 5 MG Oral Tablet (Prinivil) TAKE ONE (1) TABLET BY MOUTH DAILY 90 Tablet 1 Montelukast Sodium 10 MG Oral Tablet (Singulair) TAKE ONE (1) TABLET BY MOUTH EVERY MORNING 90 Tablet 1 DULoxetine HCl 60 MG Oral Capsule Delayed Release Particles (Cymbalta) TAKE ONE (1) CAPSULE BY MOUTH DAILY -DO NOT CHEW CUT OR CRUSH 90 Capsule 1 traZODone HCl 50 MG Oral Tablet (Desyrel) TAKE ONE (1) TABLET BY MOUTH DAILY AT BEDTIME 90 Tablet 1 metFORMIN HCl 1000 MG Oral Tablet (Glucophage) TAKE ONE (1) TABLET BY MOUTH TWICE A DAY WITH MORNING AND EVENING MEALS 180 Tablet 1 Jardiance 25 MG Oral Tablet (Empagliflozin) TAKE ONE (1) TABLET BY MOUTH DAILY 90 Tablet 1 LORazepam 0.5 MG Oral Tablet (Ativan) TAKE 1 TABLET BY MOUTH AT BEDTIME NEEDED FOR ANXIETY 30 Tablet 0 HYDROcodone-Acetaminophen 7.5-325 MG Oral Tablet Take 1 Tablet by mouth every 6 hours as needed forPain, Moderate. 120 Tablet 0 tiZANidine HCl 4 MG Oral Tablet (Zanaflex) TAKE 1 TABLET BY MOUTH TWICE DAILY - IN THE MORNING AND AT BEDTIME 60 Tablet 5 No current facility-administered medications for this visit. Past Medical History: Diagnosis Date Allergic rhinitis, cause unspecified Vicente's esophagus 07/10/14 Degeneration of lumbar or lumbosacral intervertebral disc Esophageal reflux Family history of malignant neoplasm of gastrointestinal tract father Hiatal hernia Mild persistent asthma without complication 02/21/2016 Osteoarthritis Pneumonia Spinal stenosis of lumbar region 06/07/2013 Past Surgical History: Procedure Laterality Date COLONOSCOPY, DIAGNOSTIC (RECTUM) 07/10/2014 normal, repeat in 5 yrs/COLONOSCOPY FLEXIBLE PROXIMAL DIAGNOSTIC performed by Gabino Diaz MD at ENDOSCOPY [facility] EGD, FLEXIBLE, DIAGNOSTIC 07/10/2014 vicente's esophagus, repeat in 1 yr/ESOPHAGOGASTRODUODENOSCOPY (EGD), FLEXIBLE, TRANSORAL, DIAGNOSTIC performed by Gabino Diaz MD at ENDOSCOPY [facility] EGD, FLEXIBLE, DIAGNOSTIC N/A 12/18/2015 no significant pathology/recall 3 years/ESOPHAGOGASTRODUODENOSCOPY (EGD), FLEXIBLE, TRANSORAL, DIAGNOSTIC performed by Gabino Diaz MD at ENDOSCOPY [facility] HAND/FINGER SURGERY NEC pc of metal removed from finger INFORMATION 05/23/2013 lumbar laminectomy LAMINOTOMY, SINGLE LUMBAR 05/23/13 REMOVAL OF ADENOIDS, AGE 12+ Adenoids Removal, 12+ Y/O REPAIR INITIAL INGUINAL HERNIA REDUCIBLE AGE 5 OR MORE 1989 Inguianl hernia Repair, age 5+ yr TOTAL HIP REPLACEMENT & PROSTHESIS THR (Hip Total Replacement)-right Review of patient's allergies indicates: Allergen Reactions Aspirin Asthma Valium Nausea/vomiting and Other (Please comment) sweating Family History Problem Relation Name Age of Onset No Past Hx Sister Shena well Diabetes Father Gastro-intestinal disorder Father Barretts Esophagus, intestinal problems Arthritis Father Mental Disorder Father anxiety Other (Other) Father back problems Neurological Disorder Mother Thyroid Disorder Mother Family Status Relation Status Sis Alive well Fa Alive multiple problems Mo Alive thyroid, firbromyalgia Social History Tobacco Use Smoking status: Never Smokeless tobacco: Current Types: Chew Substance Use Topics Alcohol use: Yes Comment: occasionally Vaping/E-Cigarette Use Vaping/E-Cigarette Use Never User Vaping/E-Cigarette Substances Vaping/E-Cigarette Devices Review of Systems: General: No change in weight, No fatigue, No fevers, sweats, or chills, and + weakness left leg Head: No significant headache and No recent significant head injury Musculoskeletal: No arthritis, No muscle pains or cramps, No joint swelling, + joint pain, location: left hip and left knee, + backache , and + muscle pain, location: left leg Neurologic: No fainting or blackouts, No seizures, No paralysis or focal weakness, No tremors, No significant problems with memory, and + numbness/tingling left leg Objective: BP 128/72 (BP Site: Left Arm, BP Position: Sitting, BP Cuff Size: Regular) | Pulse 88 | Temp 36.6 C (97.9 F) (Tympanic) | Resp 20 | Ht 1.753 m (5' 9.02") | Wt 125.9 kg (277 lb 9.6 oz) | SpO2 96% | BMI 40.98 kg/m | BSA 2.48 m Physical Exam: General: alert, healthy, mild distress, and obese Head: Normocephalic, No masses, lesions, tenderness or abnormalities Heart: regular rate & rhythm, no murmur, and no gallops Lungs: chest symmetric with normal AP diameter, no chest deformities noted, no chest wall tenderness, lungs clear to auscultation Pulses: radial=2/4, carotid=2/4 w/o bruits, posterior tibial=2/4, dorsalis pedis=2/4 Extremities: less than 2 second capillary refill, no joint deformities, effusion, or inflammation, does have trace edema of both ankles. Pain on motion of the left hip, tender over the left lateral hip., Pain over the left mid back and left sciatic region. Neuro Exam: alert & oriented x 3 with fluent speech, no focal motor/sensory deficits, reflexes normal and symmetric ASSESSMENT/PLAN: Spinal stenosis of lumbar region, unspecified whether neurogenic claudication present (Primary) - XR L SPINE COMPLETE - DURABLE MEDICAL EQUIPMENT - Diclofenac Sodium 75 MG Oral Tablet Delayed Release (Voltaren); Take 1 Tablet by mouth in the morning and 1 Tablet before bedtime. With food.. Chronic left hip pain - XR HIP BILAT MIN 5 VIEWS INCLUDING AP OF PELVIS - Diclofenac Sodium 75 MG Oral Tablet Delayed Release (Voltaren); Take 1 Tablet by mouth in the morning and 1 Tablet before bedtime. With food.. Chronic pain of left knee - XR KNEE 4 OR MORE VIEWS - Diclofenac Sodium 75 MG Oral Tablet Delayed Release (Voltaren); Take 1 Tablet by mouth in the morning and 1 Tablet before bedtime. With food.. HTN, goal below 140/90 - COMPREHENSIVE METABOLIC PANEL; Future; Expected date: 07/07/2024 Type 2 diabetes mellitus with hemoglobin A1c goal of less than 7.0% (HCC) - COMPREHENSIVE METABOLIC PANEL; Future; Expected date: 07/07/2024 - HEMOGLOBIN A1C; Future; Expected date: 07/07/2024 Need for prophylactic vaccination and inoculation against influenza - INFLUENZA VAC, TRIVALENT, (IIV3), PF, 0.5 ML (FLUZONE) Screening for colon cancer - COLONOSCOPY - COLOGUARD Follow Up: Return for Routine appt as scheduled. | For: Routine appt as scheduled | Check-out note:Lab appt next week Xrays today Britni Gomez PA-C documented in this encounter Nursing Notes * Inez Hunter LPN - 07/07/2024 10:54 AM EDT Chief Complaint Patient presents with Acute Pt arrived for c/o back and feet pain that has been ongoing. documented in this encounter Plan of Treatment Upcoming Encounters Date Type Department Care Team (Late st Contact Info) Description 07/13/2024 8:50 AM EDT Laboratory Laboratory, [place] [address] [facility] [address] [place] [phone] [place], [facility] [address] [facility] [address] [place] [address] 09/29/2024 11:00 AM EST [facility] [phone] Radha Alcocer, DO [address] [place] [place] [address] 10/10/2024 9:40 AM EST Office Visit [facility] [address] [place] [phone] Britni Gomez PA-C [address] [place] [address] Pending Results Name Type Priority Associated Diagnoses Date /Time XR L SPINE COMPLETE Medical Imaging Routine Spinal stenosis of lumbar region, unspecified whether neurogenic claudication present 07/07/2024 12:08 PM EDT XR HIP BILAT MIN 5 VIEWS INCLUDING AP OF PELVIS Medical Imaging Routine Chronic left hip pain 07/07/2024 12:08 PM EDT XR KNEE 4 OR MORE VIEWS Medical Imaging Routine Chronic pain of left knee 07/07/2024 12:08 PM EDT Scheduled Orders Name Type Priority Associated Diagnoses Order Schedule COMPREHENSIVE METABOLIC PANEL Lab Routine HTN, goal below 140/90 Type 2 diabetes mellitus with hemoglobin A1c goal of less than 7.0% (HCC) Expected: 07/07/2024 (Approximate), Expires: 07/07/2025 HEMOGLOBIN A1C Lab Routine Type 2 diabetes mellitus with hemoglobin A1c goal of less than 7.0% (HCC) Expected: 07/07/2024 (Approximate), Expires: 07/07/2025 COLONOSCOPY Gastro Lower Routine Screening for colon cancer Ordered: 07/07/2024 COLOGUARD Lab Unrestricted Lab Screening for colon cancer Ordered: 07/07/2024 Health Maintenance Due Date Last Done Comments Vicente's Esophagus Surveilance 12/17/2018 12/18/2015, 12/18/2015, 07/10/2014, Additional [...] as of this encounter Visit Diagnoses Diagnosis Spinal stenosis of lumbar region, unspecified whether neurogenic claudication present- Primary Chronic left hip pain Pain in joint, pelvic region and thigh Chronic pain of left knee Pain in joint, lower leg HTN, goal below 140/90 Unspecified essential hypertension Type 2 diabetes mellitus with hemoglobin A1c goal of less than 7.0% (HCC) Need for prophylactic vaccination and inoculation against influenza Screening for colon cancer Special screening for malignant neoplasms, colon documented in this encounter Care Teams Firm Administrator Relationship Specialty Start Date End Date Britni Gomez PA-C [address] [place] [phone] PCP - General Physician Manager Assisted Living 05/27/21 documented as of this encounter
--- OUTSIDE RECORDS SUMMARY | 2024-08-11 07:38 | External Medical Summary | Summary of Care ---
Author Name Unknown Organization [facility] Address [address] [place] [address] Phone [phone] Care Team Providers Care Satellite Communications Engineer Name Role Phone Bri Gomez PA-C Primary Care Provider Reason for Referral * Evaluate & Treat - Unlimited Visits (Within 10 days (routine)) - Pending Review Specialty Diagnoses / Procedures Referred By Contac t Referred To Contact Pharmacist / Pharmacy Diagnoses Type 2 diabetes mellitus with hemoglobin A1c goal of less than 7.0% (HCC) Pure hypercholesterolemia HTN, goal below 140/90 Body mass index (BMI) of 40.0 to 44.9 in adult ([facility]) Bri Gomez PA-C [address] [place] [address] Referral ID Status Reason Start Date Expiration Date Visits Requested Visits Authorized [id number] Pending Review Specialty Services Required 4 01/10/2025 99 99 Question Answer Referral Priority Within 10 days (routine) Where should this appointment be scheduled? [facility] Referring Provider Role: Primary Care Reason for Referral: DM Target A1c: < 7 Comments Pharmacist Medication Therapy Management: Minimum frequency patient should be seen in person for medication management: as appropriate per clinical condition and patient status By my signature, I understand that my patient Anand Sales will have his medication therapy managed by the [facility] Medication Therapy Disease Management Clinic ([facility]) per established policies, procedures, and protocols. I also certify that this referral may serve as an initiation of service for the management of drug therapy in the above noted patient. [facility] providers will be responsible for scheduling patient visits, obtaining appropriate laboratory studies, and adjusting medication management therapy per patient's need, in addition to those roles spelled out in the clinic policy, procedures, and drug management protocols. I understand that the service provided by the [facility] is voluntary and have informed patient that they can refuse the service at their discretion. I am aware that the [facility] Clinic will provide me with a copy of the patient encounter via my [employer] InBasket. I authorize the [facility] Clinic to carry out these activities on my behalf. I consider this program to be a necessary part of the patient's medical care. Need him to start GLP-1 for better DM control and weight loss Anton Hunter LPN Reason for Visit * Reason Onset Date Comments Test Results 07/13/2024 Encounter Details Date Type Department Care Team (Late st Contact Info) Description 07/13/2024 Telephone [facility] [address] [place] [address] Bri Gomez PA-C [address] [place] [address] Test Results Allergies Active Allergy Reactions Criticality Noted Date Comments Aspirin 06/29/2018 Asthma Valium Nausea/vomiting,Othe r (Please comment) 05/09/2014 sweating documented as of this encounter (statuses as of 07/14/2024) Medications Medication Sig Dispensed Refills Start Date [...] Puffs before bedtime. 10.2 g 4 Active Omeprazole 40 MG Oral Capsule Delayed Release (PriLOSEC)Indications:Gas troesophageal reflux disease without esophagitis TAKE ONE (1) CAPSULE BY MOUTH ONE (1) HOUR BEFORE FIRST MEAL OF THE DAY THEN ONE (1) CAPSULE BEFORE EVENING MEAL 180 Capsule 4 Active Gabapentin 300 MG Oral Capsule (Neurontin) TAKE ONE (1) CAPSULE BY MOUTH FOUR (4) TIMES A DAY ( IN THE MORNING - NOON - IN THE EVENING - AT BEDTIME ) 120 Capsule 4 Active tiZANidine HCl 4 MG Oral Tablet (Zanaflex) TAKE 1 TABLET BY MOUTH TWICE DAILY - IN THE MORNING AND AT BEDTIME 60 Tablet 4 Active Albuterol Sulfate HFA 108 (90 [...] as of this encounter (statuses as of 07/14/2024) Active Problems Problem Noted Date Diagnosed Date [...] as of this encounter (statuses as of 07/14/2024) Resolved Problems Problem Noted Date Diagnosed Date Resolved Date Hepatic cirrhosis 08/05/2022 04/08/2024 Morbid obesity, unspecified obesity type 06/29/2018 07/19/2018 Overview: Per Obesity protocol #1 High risk medication use 03/09/2017 documented as of this encounter (statuses as of 07/14/2024) Immunizations Name Administration Dates Next Due Hepatitis [...] as of this encounter Miscellaneous Notes * Addendum Note - Bri Gomez PA-C - 07/14/2024 9:12 AM EDTAddended by: BRI GOMEZ on: 07/14/2024 09:12 AM Modules accepted: Orders * Telephone Encounter - Bri Gomez PA-C - 07/14/2024 9:10 AM EDT MTM first. Referral signed * Addendum Note - Anton Hunter LPN - 07/14/2024 8:51 AM EDTAddended by: ANTON HUNTER on: 07/14/2024 08:51 AM Modules accepted: Orders * Telephone Encounter - Anton Hunter LPN - 07/14/2024 8:46 AM EDT Pt aware and is agreeable to start Ozempic and see the MTM clinic in [facility]. Wants to know if he is going to start the injection first or see MTM first, either way he is agreeable. Ptasked for a [employer] message be sent to let him know. * Telephone Encounter - Bri Gomez PA-C - 07/13/2024 4:52 PM EDT Needs to start Ozempic to lower A1C since it is 6.9%. Prefer he meets with MTDM if possible. See ifwilling. This will help with sugar and weight documented in this encounter Plan of Treatment Upcoming Encounters Date Type Department Care Team (Late st Contact Info) Description 09/29/2024 11:00 AM EST Office Visit Hepatology, Jessy Perkins [address] [place] [address] [place] [phone] Radha Alcocer DO [address] [place] [address] 10/10/2024 9:40 AM EST Office Visit [facility] [address] [place] [address] Bri Gomez PA-C [address] [place] [address] Scheduled Referrals Name Type Priority Associated Diagnoses Orde r Schedule PHARMACIST MEDS THERAPY MGMT REFERRAL OP Referral Within 10 days (routine) Type 2 diabetes mellitus with hemoglobin A1c goal of less than 7.0% (HCC) Pure hypercholesterolemia HTN, goal below 140/90 Body mass index (BMI) of 40.0 to 44.9 in adult (HCC) Ordered: 07/14/2024 Health Maintenance Due Date Last Done Comments Dougherty's Esophagus Surveilance 12/17/2018 12/18/2015, 12/18/2015, 07/10/2014, Additional history exists Cologuard 2020 Fecal Occult Blood Test 2020 Sigmoidoscopy 2020 COVID-19 Vaccine ( season) 2024 Colonoscopy 07/10/2024 07/10/2014, 07/10/2014 Colorectal Cancer Screening 07/10/2024 Depression Screening 09/16/2024 09/16/2023 Diabetic Eye Exam 09/16/2024 09/16/2023, , 02/16/2019 Diabetic Foot Exam 09/16/2024 09/16/2023, 1 10/05/2021, 05/27/2021, Additional history exists Albumin/Creatinine Ratio 10/27/20242 024, 08/05/2022, 09/19/2019, Additional history exists B-12 10/27/2024 10/27/2023, 1110/2021, 12/07/2020, Additional history exists HbA1c 01/11/2025 07/13/2024, [...] as of this encounter Visit Diagnoses Diagnosis Type 2 diabetes mellitus with hemoglobin A1c goal of less than 7.0% (HCC)- Primary Pure hypercholesterolemia HTN, goal below 140/90 Unspecified essential hypertension Body mass index (BMI) of 40.0 to 44.9 in adult (HCC) documented in this encounter Care Teams Satellite Communications Engineer Relationship Specialty Start Date End Date Bri Gomez PA-C [address] [place] [address] PCP - General Physician Sharepoint Developer 05/27/21 documented as of this encounter
--- OUTSIDE RECORDS SUMMARY | 2024-08-11 07:38 | External Medical Summary | Summary of Care ---
Author Name Unknown Organization [facility] Address [address] [place] [address] Phone [phone] Care Team Providers Care Cook Jelly Name Role Phone Bri Gomez PA-C Primary [...] (BMI) of 40.0 to 44.9 in adult ([facility]) Bri Gomez PA-C [address] [place] [address] Referral ID Status Reason Start Date Expiration Date Visits Requested Visits Authorized [id number] Pending Review Specialty Services Required 4 01/10/2025 99 99 Question Answer Referral Priority Within 10 days (routine) Where should this appointment be scheduled? [facility] Referring Provider Role: Primary Care Reason for Referral: DM Target A1c: < 7 Comments Pharmacist Medication Therapy Management: Minimum frequency patient should be seen in person for medication management: as appropriate per clinical condition and patient status By my signature, I understand that my patient Anand Sales will have his medication therapy managed by the [facility] Medication Therapy Disease Management Clinic ([facility]) per established policies, procedures, and protocols. I also certify that this referral may serve as an initiation of service for the management of drug therapy in the above noted patient. [facility] providers will be responsible for scheduling patient visits, obtaining appropriate laboratory studies, and adjusting medication management therapy per patient's need, in addition to those roles spelled out in the clinic policy, procedures, and drug management protocols. I understand that the service provided by the [facility] is voluntary and have informed patient that they can refuse the service at their discretion. I am aware that the [facility] will provide me with a copy of the patient encounter via my [employer] InBasket. I authorize the [facility] to carry out these activities on my behalf. I consider this program to be a necessary part of the patient's medical care. Need him to start GLP-1 for better DM control and weight loss Anton Hunter LPN Reason for Visit * Reason Onset Date Comments Test Results 07/13/2024 Encounter Details Date Type Department Care Team (Late st Contact Info) Description 07/13/[address] [facility] [address] [place] [address] Bri Gomez PA-C [address] [place] [address] Test Results Allergies Active [...] encounter Miscellaneous Notes * Telephone Encounter - Anton Hunter LPN - 07/14/2024 9:27 AM EDT Please assist in scheduling MTM in [place] * Addendum Note - Bri Gomez PA-C [...] Ozempic and see the MTM clinic in [facility]. Wants to know if he is going to start the injection first or see MTM first, either way he is agreeable. Ptasked for a [email or web address] message be sent to let him know. [...] 09/29/2024 11:00 AM EST Office Visit Hepatology, [address]ald [address] [phone] Radha Alcocer DO [address] [place] [address] 10/10/2024 9:40 AM EST Office Visit [facility] [address] [place] [phone] Bri Gomez PA-C [address] [place] [address] Scheduled Referrals Name Type Priority Associated Diagnoses [...] (HCC) documented in this encounter Care Teams Cook Jelly Relationship Specialty Start Date End Date Bri Gomez PA-C [address] [place] [phone] PCP - General Physician Card Table Attendant 05/27/21 documented as of this encounter
--- OUTSIDE RECORDS SUMMARY | 2024-08-11 07:38 | External Medical Summary | Summary of Care ---
Author Name Unknown Organization [facility] Address [address] [place] [address] Phone [phone] Care Team Providers Care Ladies' Hat Trimmer Name Role Phone Britni Gomez PA-C Primary Care Provider Reason for Visit * Reason Comments Dosage Adjustment In Person (Anticoag Cl inic) Diabetes Education * Evaluate & Treat - Unlimited Visits (Within 10 days (routine)) - Pending Review Specialty Diagnoses / Procedures Referred By Patsy t Referred To Contact Pharmacist / Pharmacy Diagnoses Type 2 diabetes mellitus with hemoglobin A1c goal of less than 7.0% (HCC) Pure hypercholesterolemia HTN, goal below 140/90 Body mass index (BMI) of 40.0 to 44.9 in adult (HCC) Britni Gomez PA-C [address] [place] [address] Referral ID Status Reason Start Date Expiration Date Visits Requested Visits Authorized [id number] Pending Review Specialty Services Required 01/10/2025 99 99 Encounter Details Date Type Department Care Team (Late st Contact Info) Description 07/18/2024 2:40 PM EDT Office Visit Pharmacy, [place] [address] [place] [address] [facility] [address] [facility] [place] [address] Type 2 diabetes mellitus with hemoglobin A1c goal of less than 7.0% ([facility])* Allergies Active Allergy Reactions Criticality Noted Date Comments Aspirin 06/29/2018 Asthma Valium Nausea/vomiting,Othe r (Please comment) 05/09/2014 sweating documented as of this encounter (statuses as of 07/18/2024) Medications Medication Sig Dispensed Refills Start Date End Date Status ONETOUCH DELDEANN LANCETS 33G MISC USE DIRECTED TO TEST [...] mg weekly 3 mL 5 4 Active documented as of this encounter (statuses as of 07/18/2024) Active Problems Problem Noted Date Diagnosed Date [...] as of this encounter (statuses as of 07/18/2024) Resolved Problems Problem Noted Date Diagnosed Date Resolved Date Hepatic cirrhosis 08/05/2022 04/08/2024 Morbid obesity, unspecified obesity type 06/29/2018 07/19/2018 Overview: Per Obesity protocol #1 High risk medication use 03/09/2017 documented as of this encounter (statuses as of 07/18/2024) Immunizations Name Administration Dates Next Due Hepatitis [...] on file documented as of this encounter Progress Notes * Satya Graves, [facility] - 07/18/2024 2:32 PM EDT Medication Therapy Disease Management Clinic - Diabetes Management Progress Note Anand Sales, identified by name and date of , is a 49 year old male being seen for diabetes management/education. Patient presents for initial diabetic visit. Past Medical History: Diagnosis Date Allergic rhinitis, cause unspecified Dougherty's esophagus 07/10/14 Degeneration of lumbar or lumbosacral intervertebral disc Esophageal reflux Family history of malignant neoplasm of gastrointestinal tract father Hiatal hernia Mild persistent asthma without complication 02/21/2016 Osteoarthritis Pneumonia Spinal stenosis of lumbar region 06/07/2013 Diagnosis: Type 2 Family history of diabetes: yes Microvascular complications: neuropathy Macrovascular complications: dyslipidemia, HTN per problem list (and on lisinopril) but patient does not believe he was ever told he has high BP History of Treatment Barriers: Lifestyle: chronic back/hip pain limits exercise Therapy considerations: None Medication: No barriers DIABETES: Current diabetic medications: Metformin 1000 mg BID Jardiance 25 mg daily Medication Injection Site: N/A Lifestyle: Diet: Eats 2-3 meals per day Chronic back/hip pain limits exercise Patient wants to pursue weight loss but limited by pain Glucose Review/SMBG: Per patient recall: BG running 150s-160 mg/dl about 30 min after a meal Hypoglycemia: Does your blood sugar go below 70 mg/dL? No Hyperglycemia symptoms present: Does have some blurry vision but unknown if BG related Recent Labs Units 07/13/24 0828 04/08/24 0835 10/27/23 0811 HEMOGLOBIN A1C - [facility] % 6.9* 6.3* 6.8* Recent Labs Units 07/13/24 0828 04/08/24 0835 10/27/23 0811 ESTIMATED GLOMERULAR FILTRATION RATE - [facility] mL/min 89 >90 >90 CREATININE - [facility] mg/dL 1.0 0.8 0.8 HYPERTENSION: Patient on ACEi/ARB: yes BP Readings from Last 3 Encounters: 07/07/24 128/72 04/08/24 114/68 09/16/23 132/84 Blood pressure at goal: yes HYPERLIPIDEMIA: Recent Labs Units 04/08/24 0835 10/27/23 0811 08/05/22 1302 LDL CHOLESTEROL (CALCULATED) - [facility] mg/dL 66 74 83 Does patient have clinical ASCVD? No, is patient LDL less than 70mg/dL? Yes HEALTH MAINTENANCE REVIEW: Health Maintenance Due Topic Date Due Dougherty's Esophagus Surveilance 12/17/2018 COVID-19 Vaccine () Never done Colorectal Cancer Screening 07/10/2024 ASSESSMENT & PLAN: ICD-10-CM 1. Type 2 diabetes mellitus with hemoglobin A1c goal of less than 7.0% (HCC) E11.9 For the patient's initial diabetes visit, I educated patient on the pathophysiology of diabetes, complications associated with chronic/uncontrolled diabetes which includes but is not limited to increased risk of cardiovascular mortality, CKD which can progress to ESRD, retinopathy, neuropathy, amputations, as well as increased risk of certain cancers and neurodegenerative diseases. Discussed thatwe can drastically reduce the risk of these complications by controlling diabetes, as measured by means of A1c, SMBG fingersticks, and/or CGM. Discussed the goal A1c and ways in which that can be achieved (combination of nutrition, exercise, and medications). Patient expressed understanding. BG Readings - Blood sugars not available. However, per patient recall, he is seeing BG in 150s-160smg/dl at home, although this shortly (30 min) after a meal. Instructed patient to alternate times of day for their 1x daily BG log checks (ideally rotating between pre-breakfast, pre-lunch, pre-supper, bedtime). Per the MTM referral, patient is good candidate for more strict A1c goal of < 6.5% given age (49y/o), no ASCVD or other chronic conditions and thus patient at this time would have long life expectancy. Thus, if we could achieve A1c < 6.5% and help with weight loss, it would be in best interest of patient's cardiometabolic health. Medications - Reviewed current regimen, patient is adherent to regimen. No tolerability issues withJardiance and metformin, although they are already at max dose. To achieve tighter A1c goal and help get secondary benefits of weight loss, reasonable to try GLP1-RA Ozempic. (If needed from cost standpoint, could even stop Jardiance). Educated on storage, administration, titration, and side effects to monitor for. Diet, Exercise, Lifestyle - Chronic back pain limits exercise, otherwise we would be making that our primary focus. Unfortunately, the body weight of 125.9 kg is likely worsening the low back pain. Patient is agreeable to SMBG 1-2 time(s) daily. Patient aware to contact clinic if any hypoglycemia before next visit. MEDICATION CHANGES: yes Diabetic Medications: Metformin 1000 mg BID Jardiance 25 mg daily START ozempic 0.25 mg weekly X 4 weeks then INC to 0.5 mg weekly HEALTH MAINTENANCE INTERVENTIONS: Labs: Up to Date Immunizations: due per epic Foot Exam: Up to Date Eye Exam: Up to Date Annual Wellness Visit: N/A FOLLOW UP: Return to clinic in 8 weeks 09/12/2024 I spent a total of 30-39 minutes (exact time 30 mins) on the date of service in preparation, delivery, and documentation of the care provided to Anand Sales excluding any time spent in the performance of separately billed services. Satya Graves RPh Clinical Pharmacist - Salvage Determiner Medication Therapy Management Clinic 07/18/2024, 2:32 PM documented in this encounter Plan of Treatment Upcoming Encounters Date Type Department Care Team (Late st Contact Info) Description 09/12/2024 1:00 PM EST Office Visit Pharmacy, [place] [address] [place], [place] [address] [place], [facility] [address] [place] [address] 09/29/2024 11:00 AM EST Office Visit Hepatology, [address] [place] [phone] Radha Alcocer, [address] [place] [address] 10/10/2024 9:40 AM EST [facility] Visit [facility] [address] [place] [phone] Britni Gomez PA-C [address] [place] [address] Health Maintenance Due Date Last Done Comments [...] goal of less than 7.0% (HCC)- Primary documented in this encounter Care Teams Ladies' Hat Trimmer Relationship Specialty Start Date End Date Britni Gomez PA-C [address] [place] [phone] PCP - General Physician Doweler 05/27/21 documented as of this encounter
--- OUTSIDE RECORDS SUMMARY | 2024-08-11 07:38 | External Medical Summary | Summary of Care ---
Author Name Unknown Organization [facility] Address [address] [place] [address] Phone [phone] Care Team Providers Care Personal Injury Paralegal Name Role Phone Britni Gomez PA-C Primary Care Provider Reason for Visit * Reason Onset Date Comments Test Results 07/13/2024 Encounter Details Date Type Department Care Team (Late st Contact Info) Description 07/13/2024 Telephone [facility] [address] [place] [address] Britni Gomez PA-C [address] [place] [address] Test Results Allergies Active [...] encounter Miscellaneous Notes * Telephone Encounter - Britni Gomez PA-C - 07/13/2024 4:52 PM EDT Needs to start Ozempic to lower A1C since it is 6.9%. Prefer he meets with MTDM if possible. See ifwilling. This will help with sugar and weight documented in this encounter Plan of Treatment Upcoming Encounters Date Type Department Care Team (Late st Contact Info) Description 09/29/2024 11:00 AM EST Office [address], [address] [phone] Radha Alcocer, DO [address] [place] [address] 10/10/2024 9:40 AM EST Office Visit [facility] [address] [place] [address] Britni Gomez PA-C [address] [place] [address] Health Maintenance Due Date Last Done Comments [...] filedocumented as of this encounter Care Teams Personal Injury Paralegal Relationship Specialty Start Date End Date Britni Gomez PA-C [address] [place] [phone] PCP - General Physician Teacher Specialist 05/27/21 documented as of this encounter
--- OUTSIDE RECORDS SUMMARY | 2024-08-11 07:38 | External Medical Summary | Summary of Care ---
Author Name Unknown Organization [facility] Address [address] [place] [address] Phone [phone] Care Team Providers Care Supervisor Soakers Name Role Phone Bri Gomez PA-C Primary Care Provider Reason for Visit * Reason Comments eRx-Medication Refill Encounter Details Date Type Department Care Team (Late st Contact Info) Description 06/21/2024 Refill [facility] [address] [place] [address] Bri Gomez PA-C [address] [place] [address] Type 2 diabetes mellitus with hemoglobin A1c goal of less than 7.0% (HCC); Anxiety Allergies Active Allergy Reactions Criticality Noted Date Comments Aspirin 06/29/2018 Asthma Valium Nausea/vomiting,Othe r (Please comment) 05/09/2014 sweating documented as of this encounter (statuses as of 06/22/2024) Medications Medication Sig Dispensed Refills Start Date [...] SUGAR UP TO FOUR (4) TIMES DAILY--[facility] ONLY ALLOWS ONCE DAILY TESTING Dx: E11.9 [...] or Shortness of Breath. 8.5 g 5 04/08/20 24 Active Rosuvastatin Calcium 10 MG Oral Tablet (Crestor)Indications:Pur e hypercholesterolemia TAKE ONE (1) TABLET BY MOUTH IN THE MORNING. 90 Tablet 3 04/21/20 24 Active Furosemide 20 MG Oral Tablet (Lasix) Take 1 Tablet by mouth in the morning. 30 Tablet 11 05/18/20 24 Active Lisinopril 5 MG Oral [...] BEDTIME 90 Tablet 1 05/24/20 24 Active HYDROcodone-Acetaminophe n 7.5-325 MG Oral TabletIndications:Chroni c pain syndrome,Chronic hip pain, unspecified laterality Take 1 Tablet by mouth every 6 hours as needed for Pain, Moderate. 120 Tablet 05/30/20 24 Active metFORMIN HCl 1000 MG Oral Tablet (Glucophage) TAKE ONE (1) TABLET BY MOUTH TWICE A DAY WITH MORNING AND EVENING MEALS 180 Tablet 1 06/22/20 24 Active Jardiance 25 MG Oral Tablet (Empagliflozin)Indicatio ns:Type 2 diabetes mellitus with hemoglobin A1c goal of less than 7.0% ([facility]) TAKE ONE (1) TABLET BY MOUTH DAILY 90 Tablet 1 06/22/20 24 Active LORazepam 0.5 MG Oral Tablet (Ativan)Indications:Anxi ety TAKE 1 TABLET BY MOUTH AT BEDTIME NEEDED FOR ANXIETY 30 Tablet 06/22/20 24 Active metFORMIN HCl 1000 MG Oral Tablet (Glucophage) TAKE 1 TABLET BY MOUTH TWICE A DAY WITH MORNING AND EVENING MEALS 180 Tablet 1 12/23/19 24 024 Discontinued Jardiance 25 MG Oral Tablet (Empagliflozin)Indicatio ns:Type 2 diabetes mellitus with hemoglobin A1c goal of less than 7.0% (HCC) TAKE ONE (1) TABLET BY MOUTH DAILY 90 Tablet 1 12/23/19 24 024 Discontinued LORazepam 0.5 MG Oral Tablet (Ativan)Indications:Anxi ety TAKE 1 TABLET BY MOUTH AT BEDTIME NEEDED FOR ANXIETY 30 Tablet 05/24/20 24 024 Discontinued documented as of this encounter (statuses as of 06/22/2024) Active Problems Problem Noted Date Diagnosed Date MEDICATION USE AGREEMENT 09/16/2023 Overview: Vicoden 4 daily for his spinal stenosis and Lorazepam at for anxiety. HTN, goal below 140/90 09/16/2023 [...] as of this encounter (statuses as of 06/22/2024) Resolved Problems Problem Noted Date Diagnosed Date Resolved Date Hepatic cirrhosis 08/05/2022 04/08/2024 Morbid obesity, unspecified obesity type 06/29/2018 07/19/2018 Overview: Per Obesity protocol #1 High risk medication use 03/09/2017 documented as of this encounter (statuses as of 06/22/2024) Immunizations Name Administration Dates Next Due Hepatitis [...] encounter Miscellaneous Notes * Telephone Encounter - Antonella Jensen Jr., DO - 06/22/2024 11:36 AM EDT Signed Prescriptions: Disp Refills metFORMIN HCl 1000 MG Oral Tablet (Glucoph*180 Ta*1 Sig: TAKE ONE (1) TABLET BY MOUTH TWICE A DAY WITH MORNING AND EVENING MEALS Authorizing Provider: BRI GOMEZ Ordering User: DURA, IRVING Jardiance 25 MG Oral Tablet (Empagliflozin)90 Tab*1 Sig: TAKE ONE (1) TABLET BY MOUTH DAILY Authorizing Provider: BRISSA GOMEZ Ordering User: DURA, IRVING LORazepam 0.5 MG Oral Tablet (Ativan) 30 Tab*0 Sig: TAKE 1 TABLET BY MOUTH AT BEDTIME NEEDED FOR ANXIETY Authorizing Provider: ANTONELLA JENSEN JR * Telephone Encounter - Antonella Jensen Jr., DO - 06/22/2024 11:35 AM EDT I have reviewed the patients controlled substance dispensing history in the Prescription Drug Monitoring Program in compliance with the [facility] regulations before prescribing a controlled substance. Last Tox Screen Results: Results for orders placed or performed in [...] TESTING IS AVAILABLE UPON REQUEST. CUTOFF CONCENTRATION * Telephone Encounter - Irving Rangel [facility] - 06/22/2024 11:19 AM EDTPending Prescriptions: Disp Refills LORazepam 0.5 MG Oral Tablet (Ativan) 30 Tab*0 Sig: TAKE 1 TABLET BY MOUTH AT BEDTIME NEEDED FOR ANXIETY Signed Prescriptions: Disp Refills metFORMIN HCl 1000 MG Oral Tablet (Glucoph*180 Ta*1 Sig: TAKE ONE (1) TABLET BY MOUTH TWICE A DAY WITH MORNING AND EVENING MEALS Authorizing Prov ider: BRI GOMEZ Ordering User: IRVING RANGEL Jardiance 25 MG Oral Tablet (Empagliflozin)90 Tab*1 Sig: TAKE ONE (1) TABLET BY MOUTH DAILY Authorizing Provider: BRI GOMEZ Ordering User: IRVING RANGEL * Telephone Encounter - Irving Rangel RPh - 06/22/2024 11:13 AM EDT I have reviewed the patients controlled substance dispensing history in the Prescription Drug Monitoring Program in compliance with the [facility] regulations before prescribing a controlled substance. PDMP checked on 06/22/2024. Pending Prescriptions: Disp Refills metFORMIN HCl 1000 MG Oral Tablet (Glucop*180 Ta*1 Sig: TAKE ONE (1) TABLET BY MOUTH TWICE A DAY WITH MORNING AND EVENING MEALS Jardiance 25 MG Oral Tablet (Empagliflozi*90 Tab*1 Sig: TAKE ONE (1) TABLET BY MOUTH DAILY LORazepam 0.5 MG Oral Tablet (Ativan) [Ph*30 Tab*0 Sig: TAKE 1 TABLET BY MOUTH AT BEDTIME NEEDED FOR ANXIETY Last Visit: 05/27/2021 (in office), 12/12/2020 (telemedicine) Next Visit: Visit date not found Date medication was last filled: 05/24/24 Date medication is due for refill: 06/22/24 Pharmacy: [facility] [id number] [place] Is this request [...] (A) METHADONE MEDICAL NEGATIVE OXYCODONE POSITIVE (A) AKDE COMMENT THE ABOVE SCREENING RESULTS ARE PRESUMPTIVE AND CAN ONLY BE USED FOR MEDICAL PURPOSES. CONFIRMATORY TESTING IS AVAILABLE UPON REQUEST. C[employer]OFF CONCENTRATION Please approve if appropriate. Irving Almanza PharmD Clinical Pharmacist [facility] ([facility]) [phone] 06/22/2024, 11:14 AM Electronically signed by Irving Rangel [facility] at 06/22/2024 11:19 AM EDT documented in this encounter Plan of Treatment Upcoming Encounters Date Type Department Care Team (Late st Contact Info) Description 09/29/2024 11:00 AM EST Office Visit Hepatology, [address] [phone] Radha Alcocer DO [address] [place] [address] 10/10/2024 9:40 AM EST Office Visit [facility] [address] [place] [phone] Bri Gomez PA-C [address] [place] [phone] Health Maintenance Due Date Last Done Comments [...] A1c goal of less than 7.0% (HCC) Anxiety Anxiety state, unspecified documented in this encounter Care Teams Supervisor Soakers Relationship Specialty Start Date End Date Bri Gomez PA-C [address] [place] [phone] PCP - General Physician Director Strategic Planning 05/27/21 documented as of this encounter
--- OUTSIDE RECORDS SUMMARY | 2024-08-11 07:38 | External Medical Summary | Summary of Care ---
Author Name Unknown Organization [facility] Address [address] [place] [address] Phone [phone] Care Team Providers Care Sales Engineer Name Role Phone Britni Gomez PA-C Primary Care Provider Reason for Referral * Evaluate & Treat - Unlimited Visits (Within 30 days (routine)) - Pending Review Specialty Diagnoses / Procedures Referred By Patsy bertrand Referred To Contact Gastroenterology Diagnoses Cirrhosis of liver with ascites, unspecified hepatic cirrhosis type (HCC) Britni Gomez PA-C [address] [place] [place] [address] Referral ID Status Reason Start Date Expiration Date Visits Requested Visits Authorized [id number] Pending Review Specialty Services Required 06/07/[phone] Question Answer Referral Priority Within 30 days (routine) Where should this appointment be scheduled? [facility] For what condition is the patient being referred? Liver conditions Reason for Visit * Reason Onset Date Comments Ultrasound 06/07/2024 LM 06/07 Encounter Details Date Type Department Care Team (Late st Contact Info) Description 06/07/2024 [facility] [address] [place] [address] Britni Gomez PA-C [address] [place] [address] Ultrasound (LM 06/07) Allergies Active Allergy Reactions Criticality Noted Date Comments Aspirin 06/29/2018 Asthma Valium Nausea/vomiting,Othe r (Please comment) 05/09/2014 sweating documented as of this encounter (statuses as of 06/07/2024) Medications Medication Sig Dispensed Refills Start Date [...] before bedtime. 10.2 g 12 4 Active metFORMIN HCl 1000 MG Oral Tablet (Glucophage) TAKE 1 TABLET BY MOUTH TWICE A DAY WITH MORNING AND EVENING MEALS 180 Tablet 1 4 Active Jardiance 25 MG Oral Tablet (Empagliflozin)Indication s:Type 2 diabetes mellitus with hemoglobin A1c goal of less than 7.0% (HCC) TAKE ONE (1) TABLET BY MOUTH DAILY 90 Tablet 1 4 Active Omeprazole 40 MG Oral Capsule Delayed Release (PriLOSEC)Indications:Gas troesophageal reflux disease without esophagitis TAKE ONE (1) CAPSULE BY MOUTH ONE (1) HOUR BEFORE FIRST MEAL OF THE DAY THEN ONE (1) CAPSULE BEFORE EVENING MEAL 180 Capsule 1 01/21/202 4 Active Gabapentin 300 MG Oral Capsule [...] AT BEDTIME 90 Tablet 1 4 Active LORazepam 0.5 MG Oral Tablet (Ativan)Indications:Anxie ty TAKE 1 TABLET BY MOUTH AT BEDTIME NEEDED FOR ANXIETY 30 Tablet 4 Active HYDROcodone-Acetaminophen 7.5-325 MG Oral TabletIndications:Chronic pain syndrome,Chronic hip pain, unspecified laterality Take 1 Tablet by mouth every 6 hours as needed for Pain, Moderate. 120 Tablet 4 Active documented as of this encounter (statuses as of 06/07/2024) Active Problems Problem Noted Date Diagnosed Date [...] as of this encounter (statuses as of 06/07/2024) Resolved Problems Problem Noted Date Diagnosed Date Resolved Date Hepatic cirrhosis 08/05/2022 04/08/2024 Morbid obesity, unspecified obesity type 06/29/2018 07/19/2018 Overview: Per Obesity protocol #1 High risk medication use 03/09/2017 documented as of this encounter (statuses as of 06/07/2024) Immunizations Name Administration Dates Next Due Hepatitis [...] encounter Miscellaneous Notes * Telephone Encounter - Dennise Baca LPN - 06/07/2024 3:20 PM EDT Patient(s) returned call. Informed of message. Verbalized understanding. Transferred to [facility] in hepatology scheduling. * Telephone Encounter - Inez Hunter LPN - 06/07/2024 3:09 PM EDT Left message for pt to return call to [phone] regarding test results below. Britni Gomez PA-C Physician Electric Motor Controls Assembler - Certified [id number] Copy US shows hepatic cirrhosis and steatosis. He needs to be scheduled with GI for evaluation. * Telephone Encounter - Britni Gomez PA-C - 06/07/2024 9:08 AM EDT US shows hepatic cirrhosis and steatosis. He needs to be scheduled with GI for evaluation. documented in this encounter Plan of Treatment Upcoming Encounters Date Type Department Care Team (Late st Contact Info) Description 10/10/2024 9:40 AM EST Office Visit [facility] [address] [place] [address] Britni Gomez PA-C [address] [place] [address] Scheduled Referrals Name Type Priority Associated Diagnoses Orde r Schedule HEPATOLOGY REFERRAL OP Referral Within 30 days (routine) Cirrhosis of liver with ascites, unspecified hepatic cirrhosis type (HCC) Ordered: 06/07/2024 Health Maintenance Due Date Last Done Comments [...] 09/19/2019, Additional history exists B-12 10/27/2024 10/27/2023, 10/2021, 12/07/2020, Additional history exists GFR 04/08/2025 [...] as of this encounter Visit Diagnoses Diagnosis Cirrhosis of liver with ascites, unspecified hepatic cirrhosis type (HCC)- Primary documented in this encounter Care Teams Sales Engineer Relationship Specialty Start Date End Date Britni Gomez PA-C [address] [place] [id number] PCP - General Physician Electric Motor Controls Assembler 05/27/21 documented as of this encounter
--- OUTSIDE RECORDS SUMMARY | 2024-08-11 07:38 | External Medical Summary | Summary of Care ---
Author Name Unknown Organization [facility] Address [address] [place] [address] Phone [phone] Care Team Providers Care Cd Manufacturing Supervisor Name Role Phone Bri Gomez PA-C Primary Care Provider Reason for Visit * Reason Comments eRx-Medication Refill Encounter Details Date Type Department Care Team (Late st Contact Info) Description 07/19/2024 Refill [facility] [address] [place] [address] Bri Gomez PA-C [address] [place] [address] Gastroesophageal reflux disease without esophagitis Allergies Active Allergy Reactions Criticality Noted Date [...] hemoglobin A1c goal of less than 7.0% ([facility]) USE DIRECTED TO TEST BLOOD SUGAR TWICE A DAY E11.9 100 Strip 11 08/05/20 22 Active True Metrix Meter w/Device KitIndications:Type 2 diabetes mellitus with hemoglobin A1c goal of less than 7.0% ([facility]) TEST BLOOD SUGAR UP TO [...] hemoglobin A1c goal of less than 7.0% ([facility]) Inject 0.25 mg weekly for 4 weeks, then increase to 0.5 mg weekly 3 mL 5 07/18/20 24 Active Omeprazole 40 MG Oral Capsule Delayed Release (PriLOSEC)Indications:Ga stroesophageal reflux disease without esophagitis TAKE 1 CAPSULE BY MOUTH 1 HOUR BEFORE FIRST MEAL OF THE DAY AND THEN ONE TAKE 1 CAPSULE EVENING MEAL 180 Capsule 1 07/20/20 24 Active Omeprazole 40 MG Oral Capsule Delayed Release (PriLOSEC)Indications:Ga stroesophageal reflux disease without esophagitis TAKE ONE (1) CAPSULE BY MOUTH ONE (1) HOUR BEFORE FIRST MEAL OF THE DAY THEN ONE (1) CAPSULE BEFORE EVENING MEAL 180 Capsule 1 01/22/20 24 024 Discontinued documented as of this [...] Telephone Encounter - Bri Gomez PA-C - 07/20/2024 9:23 AM EDT Signed Prescriptions: Disp Refills Omeprazole 40 MG Oral Capsule Delayed Rele*180 Ca*1 Sig: TAKE 1 CAPSULE BY MOUTH 1 HOUR BEFORE FIRST MEAL OF THE DAY AND THEN ONE TAKE 1 CAPSULE EVENING MEAL Authorizing Provider: BRI GOMEZ * Telephone Encounter - Alessandro Catalan LPN - 07/20/2024 9:23 AM EDTPending Prescriptions: Disp Refills Omeprazole 40 MG Oral Capsule Delayed Rele*180 Ca*1 Sig: TAKE 1 CAPSULE BY MOUTH 1 HOUR BEFORE FIRST MEAL OF THE DAY AND THEN ONE TAKE 1 CAPSULE EVENING MEAL * Telephone Encounter - Alessandro Catalan LPN - 07/20/2024 9:22 AM EDT Did you pend patient's preferred pharmacy and medication before forwarding?yes Pharmacy: [facility] [id number] [place] Pending Prescriptions: Disp Refills Omeprazole 40 MG Oral Capsule Delayed Rel*180 Ca*1 Sig: TAKE 1 CAPSULE BY MOUTH 1 HOUR BEFORE FIRST MEAL OF THE DAY AND THEN ONE TAKE 1 CAPSULE EVENING MEAL Last Visit: 04/26/2020 (in office), Visit date not found (telemedicine) Next Visit: Visit date not found If no future appointments scheduled, and last appointment is greater than a year ago, please schedule patient for a follow-up appointment Last date the medication was ordered: 01/22/24 Is this request for a controlled substance?No Urine Drug Screen: Results for orders placed or performed in [...] TESTING IS AVAILABLE UPON REQUEST. CUTOFF CONCENTRATION Patient Phone Numbers [facility] [phone] Labs: Lab Results Component Value Date/Time CREAT 1.0 07/13/2024 08:28 AM CREAT 0.7 08/03/2019 08:26 AM POTASSIUM 4.7 07/13/2024 08:28 AM POTASSIUM 4.0 08/03/2019 08:26 AM TSH 0.82 08/05/2022 01:02 PM TSH 1.36 11/08/2018 10:03 AM LDL 66 04/08/2024 08:35 AM LDL 112 08/03/2019 08:26 AM ALT 23 07/13/2024 08:28 AM ALT 307 (H) 08/03/2019 08:26 AM HGBA1C 6.9 (H) 07/13/2024 08:28 AM HGBA1C 6.4 (H) 08/03/2019 08:26 AM documented in this encounter Plan of Treatment Upcoming Encounters Date Type Department Care Team (Late st Contact Info) Description 09/12/2024 1:00 PM EST Office Visit Pharmacy, [address] [place] [address] [facility] [address] [place] [address] 09/29/2024 11:00 AM EST Office Visit Hepatology, [facility] [address] [place] [phone] Radha Alcocer DO [address] [place] [address] 10/10/2024 9:40 AM EST Office [facility] [address] [place] [address] Bri Gomez PA-C [address] [address] Health Maintenance Due Date Last Done Comments [...] 09/19/2019, Additional history exists B-12 10/27/2024 10/27/2023, 11/10/2021, 12/07/2020, Additional history exists HbA1c 01/11/2025 07/13/2024, 07/0 02/2024, 10/27/2023, Additional history exists GFR 07/13/2025 07/13/2024, 02/2024, 10/27/2023, Additional history exists DTap/Tdap Vaccines [...] as of this encounter Visit Diagnoses Diagnosis Gastroesophageal reflux disease without esophagitis Esophageal reflux documented in this encounter Care Teams Cd Manufacturing Supervisor Relationship Specialty Start Date End Date Bri Gomez PA-C [address] [place] [address] PCP - General Physician Railroad Accountant 05/27/21 documented as of this encounter
--- OUTSIDE RECORDS SUMMARY | 2024-08-11 07:38 | External Medical Summary | Summary of Care ---
Author Name Unknown Organization [facility] Address [address] [place] [address] Phone [phone] Care Team Providers Care Specialty Person Name Role Phone Britni Gomez PA-C Primary Care Provider Reason for Visit * Reason Onset Date Comments Test Results 07/13/2024 Encounter Details Date Type Department Care Team (Late st Contact Info) Description 07/13/2024 Telephone [facility] [address] [place] [address] Britni Gomez PA-C [address] [place] [address] Test Results Allergies Active [...] encounter Miscellaneous Notes * Addendum Note - Anton Hunter LPN - 07/14/2024 8:51 AM EDTAddended by: ANTON HUNTER on: 07/14/2024 08:51 AM Modules accepted: Orders * Telephone Encounter - Anton Hunter LPN - 07/14/2024 8:46 AM EDT Pt aware and is agreeable to start Ozempic and see the MTM clinic in [facility]. Wants to know if he is going to start the injection first or see MTM first, either way he is agreeable. Ptasked for a [employer] g message be sent to let him know. * Telephone Encounter - Britni Gomez PA-C [...] 09/29/2024 11:00 AM EST Office Visit Hepatology, [address] [phone] Radha Alcocer DO [address] [place] [address] 10/10/2024 9:40 AM EST [facility] [address] [place] [address] Britni Gomez PA-C [address] [place] [phone] Health Maintenance Due Date Last Done Comments [...] filedocumented as of this encounter Care Teams Specialty Person Relationship Specialty Start Date End Date Britni Gomez PA-C [address] [phone] PCP - General Physician Tube Builder 05/27/21 documented as of this encounter
--- OUTSIDE RECORDS SUMMARY | 2024-08-11 07:39 | External Medical Summary ---
Author Name Unknown Address Unknown Organization K01:[facility] [place] - [address] [facility] [address] Laboratory Report Ordering Provider Test Date Status NABIL HORNE 04/08/2024 08:35:47 Final Observation Date Value Abnormality Reference (Units ) Status BUN 04/08/2024 08:35:47 13 6-20 (mg/dL) Final Creatinine 04/08/2024 08:35:47 0.8 0.6-1.2 (mg/dL) Final Glomerular filtration rate/1.73 sq M.predicted [Volume Rate/Area] in Serum, Plasma or Blood by Creatinine-based formula (CKD-EPI) 04/08/2024 08:35:47 >90 >=60 (mL/min) Final eGFR is calculated based on the CKD-EPI 2020 equation Sodium 04/08/2024 08:35:47 134 Below low normal 135 -146 (mmol/L) Final Potassium 04/08/2024 08:35:47 4.3 3.5-5.1 (m mol/L) Final Cl 04/08/2024 08:35:47 95 Below low normal 98- 107 (mmol/L) Final CO2 04/08/2024 08:35:47 25 22-32 (mmo l/L) Final Anion gap 04/08/2024 08:35:47 14 7-15 (mmol /L) Final Glucose 04/08/2024 08:35:47 132 Above high normal 70 -120 (mg/dL) Final Albumin 04/08/2024 08:35:47 4.0 3.8-5.0 (g /dL) Final AST (Aspartate aminotransferase) 04/08/2024 08:35:47 40 10-50 (U/L) Fin al Alk Phos 04/08/2024 08:35:47 180 Above high normal 35 -130 (U/L) Final Bilirubin, Total 04/08/2024 08:35:47 0.6 <=1 .2 (mg/dL) Final Calcium 04/08/2024 08:35:47 9.7 8.4-10.2 ( mg/dL) Final Protein 04/08/2024 08:35:47 7.6 6.0-8.3 (g /dL) Final ALT (Alanine aminotransferase) 04/08/2024 08:35:47 23 10-50 (U/L) Franklyn durand Performing Location [facility] [place] - [facility] [address] [facility] [address]
--- OUTSIDE RECORDS SUMMARY | 2024-08-11 07:39 | External Medical Summary ---
Author Name Unknown Address Unknown Organization K01:[facility] [place] [address] [facility] [address] [facility] [address] Laboratory Report Ordering Provider Test Date Status NABIL HORNE 04/08/2024 08:35:47 Final Observation Date Value Abnormality Reference (Units ) Status HbA1C 04/08/2024 08:35:47 6.3 Above high normal 4. 0-5.6 (%) Final The use of HbA1c to monitor glycemic status is based on normal hemoglobin and HbA composition. This test should not be used in patients with abnormal hemoglobin that affects the half life of the red blood cell or the in vivo glycation rates. Glucose, estimated average 04/08/2024 08:35:47 134 Above high normal <126 (mg/dL) Franklyn durand Performing Location [facility] [place] [facility] [address] [facility] [address] [facility] [address]
--- OUTSIDE RECORDS SUMMARY | 2024-08-11 07:39 | External Medical Summary | Summary of Care ---
Author Name Unknown Organization [facility] Address [address] [place] [address] Phone [phone] Care Team Providers Care Staff Auditor Name Role Phone Bri Gomez PA-C Primary Care Provider Reason for Visit * Reason Comments eRx-Medication Refill Encounter Details Date Type Department Care Team (Late st Contact Info) Description 04/20/2024 Refill [facility] [address] [address] Bri Gomez PA-C [address] [place] [address] Pure hypercholesterolemia Allergies Active Allergy Reactions Criticality Noted Date Comments Aspirin 06/29/2018 Asthma Valium Nausea/vomiting,Othe r (Please comment) 05/09/2014 sweating documented as of this encounter (statuses as of 04/21/2024) Medications Medication Sig Dispensed Refills Start Date [...] 2 Puffs before bedtime. 10.2 g 12 11/03/19 24 Active Lisinopril 5 MG Oral Tablet (Prinivil) TAKE ONE (1) TABLET BY MOUTH DAILY 90 Tablet 1 11/25/19 24 Active Montelukast Sodium 10 MG Oral Tablet (Singulair) TAKE ONE (1) TABLET BY MOUTH EVERY MORNING 90 Tablet 1 11/25/19 24 Active DULoxetine HCl 60 MG Oral Capsule Delayed Release Particles (Cymbalta) TAKE ONE (1) CAPSULE BY MOUTH DAILY -DO NOT CHEW CUT OR CRUSH 90 Capsule 11/25/19 24 Active traZODone HCl 50 MG Oral Tablet (Desyrel)Indications:Janett heena insomnia TAKE ONE (1) TABLET BY MOUTH DAILY AT BEDTIME 90 Tablet 1 11/25/19 24 Active metFORMIN HCl 1000 MG Oral Tablet (Glucophage) TAKE 1 TABLET BY MOUTH TWICE A DAY WITH MORNING AND EVENING MEALS 180 Tablet 1 12/23/19 24 Active Jardiance 25 MG Oral Tablet (Empagliflozin)Indicatio ns:Type 2 diabetes mellitus with hemoglobin A1c goal of less than 7.0% (HCC) TAKE ONE (1) TABLET BY MOUTH DAILY 90 Tablet 1 12/23/19 24 Active Omeprazole 40 MG Oral Capsule Delayed Release (PriLOSEC)Indications:Ga stroesophageal reflux disease without esophagitis TAKE ONE (1) CAPSULE BY MOUTH ONE (1) HOUR BEFORE FIRST MEAL OF THE DAY THEN ONE (1) CAPSULE BEFORE EVENING MEAL 180 Capsule 1 01/22/20 24 Active Gabapentin 300 MG Oral Capsule (Neurontin) TAKE ONE (1) CAPSULE BY MOUTH FOUR (4) TIMES A DAY ( IN THE MORNING - NOON - IN THE EVENING - AT BEDTIME ) 120 Capsule 5 03/24/20 24 Active tiZANidine HCl 4 MG Oral Tablet (Zanaflex) TAKE 1 TABLET BY MOUTH TWICE DAILY - IN THE MORNING AND AT BEDTIME 60 Tablet 5 03/24/20 24 Active LORazepam 0.5 MG Oral Tablet (Ativan)Indications:Anxi ety TAKE ONE (1) TABLET BY MOUTH AT BEDTIME NEEDED FOR ANXIETY 30 Tablet 03/24/20 24 Active HYDROcodone-Acetaminophe n 7.5-325 MG Oral TabletIndications:Chroni c pain syndrome,Chronic hip pain, unspecified laterality Take 1 Tablet by mouth every 6 hours as needed for Pain, Severe. 120 Tablet 03/31/20 24 Active Albuterol Sulfate HFA 108 (90 Base) MCG/ACT Inhalation Aerosol SolutionIndications:Mild persistent asthma without complication Inhale 2 Puffs by mouth every 4 hours as needed for Wheezing or Shortness of Breath. 8.5 g 5 04/08/20 24 Active Rosuvastatin Calcium 10 MG Oral Tablet (Crestor)Indications:Pur e hypercholesterolemia TAKE ONE (1) TABLET BY MOUTH IN THE MORNING. 90 Tablet 3 04/21/20 24 Active Rosuvastatin Calcium 10 MG Oral Tablet (Crestor)Indications:Pur e hypercholesterolemia TAKE ONE (1) TABLET BY MOUTH IN THE MORNING. 90 Tablet 1 11/25/19 24 024 Discontinued documented as of this encounter (statuses as of 04/21/2024) Active Problems Problem Noted Date Diagnosed Date [...] as of this encounter (statuses as of 04/21/2024) Resolved Problems Problem Noted Date Diagnosed Date Resolved Date Hepatic cirrhosis 08/05/2022 04/08/2024 Morbid obesity, unspecified obesity type 06/29/2018 07/19/2018 Overview: Per Obesity protocol #1 High risk medication use 03/09/2017 documented as of this encounter (statuses as of 04/21/2024) Immunizations Name Administration Dates Next Due Hepatitis B, 20+ yrs 03/05/2010,11/05/2009,10/05 Pneumococcal Conjugate Vacc, 13 Valent (Prevnar) 02/01/2015 Pneumococcal Polysaccharide PPV23 (Pneumovax) 06/10/2017 Seasonal Influenza, PF, 6 M & above, IM , (FluLaval or Fluzone) 08/05/2022,09/19/2019,06/29/2018 Seasonal Influenza, Quadriva lent, No Preserve, IM 07/24/2016,08/06/2015 Seasonal Influenza, Split, I IV3, With Preserve, Inj 10/21/2013,05/24/2007 TD, Preservative Free 06/29/2018 TDAP, Age [...] 09/16/2023 Does the household have a re lar source of income? (Household - for ages [...] encounter Miscellaneous Notes * Telephone Encounter - Razia Mcbride, [facility] - 04/21/2024 11:03 AM EDTSigned Prescriptions: Disp Refills Rosuvastatin Calcium 10 MG Oral Tablet (Cr*90 Tab*3 Sig: TAKE ONE (1) TABLET BY MOUTH IN THE MORNING.Authorizing Provider: BRI GOMEZ User: RAZIA MCBRIDE documented in this encounter Plan of Treatment Upcoming Encounters Date Type Department Care Team (Late st Contact Info) Description 10/10/2024 9:40 AM EST Office Visit [facility] [address] [address] Bri Gomez PA-C [address] [place] [address] Health Maintenance Due Date Last Done Comments Dougherty's Esophagus Surveilance 12/17/2018 12/18/2015, 12/18/2015, 07/10/2014, Additional history exists Cologuard 2020 Fecal Occult Blood Test 2020 Sigmoidoscopy 2020 COVID-19 Vaccine ( season) 2023 Influenza Vaccine (FLU shot) (#1) 2024 08/05/2022, [...] 04/08/2025 04/08/2024, 10/06, 08/05/2022, Additional history exists DTaP,Tdap,and Td Vaccines (3 - Td or Tdap) 06/29/2028 [...] as of this encounter Visit Diagnoses Diagnosis Pure hypercholesterolemia documented in this encounter Care Teams Staff Auditor Relationship Specialty Start Date End Date Bri Gomez PA-C [address] [address] PCP - [facility] Associate 05/27/21 documented as of this encounter
--- OUTSIDE RECORDS SUMMARY | 2024-08-11 07:39 | External Medical Summary | Summary of Care ---
Author Name Unknown Organization [facility] Address [address] [place] [address] Phone [phone] Care Team Providers Care Director Credit Risk Name Role Phone Britni Gomez PA-C Primary Care Provider Reason for Visit * Reason Comments eRx-Medication Refill Encounter Details Date Type Department Care Team (Late st Contact Info) Description 03/25/2024 Refill [facility] [address] [place] [address] Britni Gomez PA-C [address] [place] [address] Chronic pain syndrome; Chronic hip pain, unspecified laterality Allergies Active Allergy Reactions Criticality Noted Date Comments Aspirin 06/29/2018 Asthma Valium Nausea/vomiting,Othe r (Please comment) 05/09/2014 sweating documented as of this encounter (statuses as of 03/31/2024) Medications Medication Sig Dispensed Refills Start Date End Date Status [facility] DIRECT[facility] TO TEST BLOOD SUGAR TWICE A DAY E11.9 100 Each 11 12/23/19 19 Active Albuterol Sulfate HFA 108 (90 Base) MCG/ACT Inhalation Aerosol Solution INHALE TWO (2) PUFFS BY MOUTH EVERY FOUR (4) HOURS NEEDED FOR WHEEZING. 8.5 g 4 02/26/20 22 Active OneTouch Verio In Vitro Strip (Glucose Blood)Indications:Type 2 diabetes mellitus with hemoglobin A1c goal of less than 7.0% ([facility]) USE DIRECTED TO TEST BLOOD SUGAR TWICE A DAY E11.9 100 Strip 11 08/05/20 22 Active True Metrix Meter w/Device KitIndications:Type 2 diabetes mellitus with hemoglobin A1c goal of less than 7.0% ([facility]) TEST BLOOD SUGAR UP TO FOUR (4) TIMES DAILY--[facility]CE DAILY TESTING Dx: E11.9 [...] area. 60 g 5 09/16/20 23 Active predniSONE 10 MG Oral Tablet (Deltasone)Indications:B ronchitis, complicated Take 4 pills by mouth for 3 days, 3 pills for 3 days, 2 pills for 3 days and 1 pill for 3 days 30 Tablet 10/02/20 23 Active Budesonide-Formoterol Fumarate 80-4.5 MCG/ACT Inhalation Aerosol (Symbicort)Indications:M ild persistent asthma without complication Inhale 2 Puffs by mouth in the morning and 2 Puffs before bedtime. 10.2 g 11/03/19 24 Active Lisinopril 5 MG Oral Tablet (Prinivil) TAKE ONE (1) TABLET BY MOUTH DAILY 90 Tablet 11/25/19 24 Active Montelukast Sodium 10 MG Oral Tablet (Singulair) TAKE ONE (1) TABLET BY MOUTH EVERY MORNING 90 Tablet 11/25/19 24 Active DULoxetine HCl 60 MG Oral Capsule Delayed Release Particles (Cymbalta) TAKE ONE (1) CAPSULE BY MOUTH DAILY -DO NOT CHEW CUT OR CRUSH 90 Capsule 11/25/19 24 Active Rosuvastatin Calcium 10 MG Oral Tablet (Crestor)Indications:Pur e hypercholesterolemia TAKE ONE (1) TABLET BY MOUTH IN THE MORNING. 90 Tablet 11/25/19 24 Active traZODone HCl 50 MG Oral Tablet (Desyrel)Indications:Janett heena insomnia TAKE ONE (1) TABLET BY MOUTH DAILY AT BEDTIME 90 Tablet 1 11/25/19 24 Active metFORMIN HCl 1000 MG Oral Tablet (Glucophage) TAKE 1 TABLET BY MOUTH TWICE A DAY WITH MORNING AND EVENING MEALS 180 Tablet 12/23/19 24 Active Jardiance 25 MG Oral [...] Pain, Severe. 120 Tablet 03/31/20 24 Active HYDROcodone-Acetaminophe n 7.5-325 MG Oral TabletIndications:Chroni c pain syndrome,Chronic hip pain, unspecified laterality Take 1 Tablet by mouth every 6 hours as needed for Pain, Severe. 120 Tablet 03/02/20 24 024 Discontinued documented as of this encounter (statuses as of 03/31/2024) Active Problems Problem Noted Date Diagnosed Date MEDICATION USE AGREEMENT 09/16/2023 Overview: Vicoden 4 daily for his spinal stenosis and Lorazepam at hs for anxiety. HTN, goal below 140/90 09/16/2023 Hepatic cirrhosis 08/05/2022 Morbid obesity due to excess calories 04/26/2020 [...] as of this encounter (statuses as of 03/31/2024) Resolved Problems Problem Noted Date Diagnosed Date Resolved Date Morbid obesity, unspecified obesity type 06/29/2018 07/19/2018 Overview: Per Obesity protocol #1 High risk medication use 03/09/2017 documented as of this encounter (statuses as of 03/31/2024) Immunizations Name Administration Dates Next Due Hepatitis [...] the money to buy more. Never true 12/13/20 23 Within the past 12 months, t [...] encounter Miscellaneous Notes * Telephone Encounter - Jay Rice PA-C - 03/31/2024 4:12 PM EDTSigned Prescriptions: Disp Refills HYDROcodone-Acetaminophen 7.5-325 MG Oral *120 Ta*0 Sig: Take 1 Tablet by mouth every 6 hours as needed for Pain, Severe. Authorizing Provider: JAY RICE * Telephone Encounter - Elba Ackerman [facility] - 03/29/2024 4:28 AM EDTPending Prescriptions: Disp Refills HYDROcodone-Acetaminophen 7.5-325 MG Oral *120 Ta*0 Sig: Take 1 Tablet by mouth every 6 hours as needed for Pain, Severe. * Telephone Encounter - Marge Bobo [facility] - 03/25/2024 12:59 PM EDT Postpone until 03/29 I have reviewed the patients controlled substance dispensing history in the Prescription Drug Monitoring Program in compliance with the [facility] regulations before prescribing a controlled substance. PDMP checked on 03/25/2024. Pending Prescriptions: Disp Refills HYDROcodone-Acetaminophen 7.5-325 MG Oral*120 Ta*0 Sig: Take 1 Tablet by mouth every 6 hours as needed for Pain, Severe. Last Visit: 09/16/2023 (in office), Visit date not found (telemedicine) Next Visit: Visit date not found Date medication was last filled: 03/02/24 Date medication is due for refill: 03/31/24 Pharmacy: [facility] [phone] [place] Is this request [...] REQUEST. [employer] Please approve if appropriate. Marge Almanza PharmD Clinical Pharmacist [facility] [phone] 03/25/2024, 12:59 PM documented in this encounter Plan of Treatment Health Maintenance Due Date Last Done Comments Dougherty's Esophagus Surveilance 12/17/2018 12/18/2015, 12/18/2015, 07/10/2014, Additional history exists Cologuard 2020 Fecal Occult Blood Test 2020 Sigmoidoscopy 2020 COVID-19 Vaccine ( season) 2023 HbA1c 04/26/2024 10/27/2023, 110 10/2021, 12/07/2020, Additional history exists Influenza Vaccine (FLU shot) (Season Ended) 2024 08/05/2022, 09/19/2019, 06/29/2018, Additional history exists Colonoscopy 07/10/2024 07/10/2014, 07/10/2014 Colorectal Cancer Screening 07/10/2024 Depression Screening 09/16/2024 09/16/2023 Diabetic Eye Exam 09/16/2024 09/16/2023, , 02/16/2019 Diabetic Foot Exam 09/16/2024 09/16/2023, 1 10/05/2021, 05/27/2021, Additional history exists Albumin/Creatinine Ratio 10/27/20242 024, 08/05/2022, 09/19/2019, Additional history exists B-12 10/27/2024 10/27/2023, 110 10/2021, 12/07/2020, Additional history exists GFR 10/27/2024 10/27/2023, 110 10/2021, 10/13/2021, Additional history exists DTaP,Tdap,and Td Vaccines (3 - Td or Tdap) 06/29/2028 06/29/2018, 05/24/2007 Lipid Panel 10/27/2028 10/27/2023, 11/0 10/2021, 12/07/2020, Additional history exists Pneumococcal Vaccine: Pediatrics (0 to 5 Years) and At-Risk Patients (6 to 64 Years) (3 of 3 - PPSV23 or PCV20) 2040 06/10/2017, 02/01/2015 Hepatitis B Completed 03/05/2010, 10/2009, 10/05/2009 GARDASIL-HPV IMMUNIZATION SERIES Aged Out No longer eligible based on patient's age to complete this topic MENINGOCOCCAL (MENACTRA/MENVEO) Aged Out No longer eligible based on patient's age to complete this topic documented as of this encounter Medical Devices Not on filedocumented as of this encounter Visit Diagnoses Diagnosis Chronic pain syndrome Chronic hip pain, unspecified laterality documented in this encounter Care Teams Director Credit Risk Relationship Specialty Start Date End Date Britni Gomez PA-C [address] [place] [address] PCP - General Physician [employer] Maker 05/27/21 documented as of this encounter
--- OUTSIDE RECORDS SUMMARY | 2024-08-11 07:39 | External Medical Summary | Summary of Care ---
Author Name Unknown Organization [facility] Address [address] [address] Phone [phone] Care Team Providers Care Nurse First Assist Name Role Phone Britni Gomez PA-C Primary Care Provider Reason for Visit * Reason Comments Edema Right leg red and sw ollen for months also a few months ago both legs were sleeping and left leg numb Encounter Details Date Type Department Care Team (Late st Contact Info) Description 04/08/2024 8:00 AM EDT Office Visit [facility] [address] [place] [phone] Daniel Rangel CRNP [address] [place] [phone] Pure hypercholesterolemia* ; Morbid obesity due to excess calories (HCC); Type 2 diabetes mellitus with hemoglobin A1c goal of less than 7.0% (HCC); HTN, goal below 140/90; Mild persistent asthma without complication; DEIDRE (generalized anxiety disorder); Cellulitis of right lower extremity Allergies Active Allergy Reactions Criticality Noted Date Comments Aspirin 06/29/2018 Asthma Valium Nausea/vomiting,Othe r (Please comment) 05/09/2014 sweating documented as of this encounter (statuses as of 04/08/2024) Medications Medication Sig Dispensed Refills Start Date [...] SUGAR UP TO FOUR (4) TIMES DAILY--[facility] ONLY ALLOWS ONCE DAILY TESTING Dx: [...] before bedtime. 10.2 g 12 4 Active Lisinopril 5 MG Oral Tablet [...] CUT OR CRUSH 90 Capsule 4 Active Rosuvastatin Calcium 10 MG Oral Tablet (Crestor)Indications:Pur e hypercholesterolemia TAKE ONE (1) TABLET BY MOUTH IN THE MORNING. 90 Tablet 1 4 Active traZODone HCl 50 MG [...] AT BEDTIME 60 Tablet 5 4 Active LORazepam 0.5 MG Oral Tablet (Ativan)Indications:Anxi ety TAKE ONE (1) TABLET BY MOUTH AT BEDTIME NEEDED FOR ANXIETY 30 Tablet 4 Active HYDROcodone-Acetaminophe n 7.5-325 MG Oral TabletIndications:Chroni c pain syndrome,Chronic hip pain, unspecified laterality Take 1 Tablet by mouth every 6 hours as needed for Pain, Severe. 120 Tablet 4 Active Albuterol Sulfate HFA 108 (90 Base) MCG/ACT Inhalation Aerosol SolutionIndications:Mild persistent asthma without complication Inhale 2 Puffs by mouth every 4 hours as needed for Wheezing or Shortness of Breath. 8.5 g 5 4 Active Cephalexin 500 MG Oral Capsule (Keflex)Indications:Cell ulitis of right lower extremity Take 1 Capsule by mouth in the morning and 1 Capsule at noon and 1 Capsule in the evening and 1 Capsule before bedtime. Do all this for 10 days. 40 Capsule 4 04/18/20 24 Active Albuterol Sulfate HFA 108 (90 Base) MCG/ACT Inhalation Aerosol Solution INHALE TWO (2) PUFFS BY MOUTH EVERY FOUR (4) HOURS NEEDED FOR WHEEZING. 8.5 g 4 2 04/08/20 24 Discontinu ed(Refill) predniSONE 10 MG Oral Tablet (Deltasone)Indications:B ronchitis, complicated Take 4 pills by mouth for 3 days, 3 pills for 3 days, 2 pills for 3 days and 1 pill for 3 days 30 Tablet 3 04/08/20 24 Discontinu ed(Medicat ion List Clean Up) documented as of this encounter (statuses as of 04/08/2024) Active Problems Problem Noted Date Diagnosed Date [...] as of this encounter (statuses as of 04/08/2024) Resolved Problems Problem Noted Date Diagnosed Date Resolved Date Hepatic cirrhosis 08/05/2022 04/08/2024 Morbid obesity, unspecified obesity type 06/29/2018 07/19/2018 Overview: Per Obesity protocol #1 High risk medication use 03/09/2017 documented as of this encounter (statuses as of 04/08/2024) Immunizations Name Administration Dates Next Due Hepatitis [...] Smoking Tobacco: Never Smokeless Tobacco: Current Chew Tobacco Cessation:Ready to Q uit: No; Counseling Given: No Alcohol Use Standard Drinks/Week Comments Yes 0 [...] Sign Reading Time Taken Comments Blood Pressure 114/68 04/08/2024 7:54 AM EDT Pulse 80 04/08/2024 7:54 AM EDT Temperature 36.4 C (97.6 F) 04/08/2024 7:54 AM ED T Respiratory Rate 14 04/08/2024 7:54 AM EDT Oxygen Saturation 96% 04/08/2024 7:54 AM EDT Inhaled Oxygen Concentration - - Weight 119.3 kg (263 lb) 04/08/2024 7:54 AM EDT Height - - Body Mass Index 38.82 09/16/2023 8:53 AM EST documented in this encounter Progress Notes * Daniel Rangel CRNP - 04/08/2024 8:00 AM EDT Images from the original note were not included. History of Present Illness Chief Complaint Patient presents with Edema Right leg red and swollen for months also a few months ago both legs were sleeping and left leg numb Patient presents for 6 month routine office visit of DM, hyperlipidemia, mild persistent asthma, Morbid Obesity, DEIDRE, and hypertension. Pt complains of right leg swelling and redness and left sided sciatica. Diabetes - Type 2 diabetes using oral medications and diet. Taking medication as prescribed, see med list. No medication side effects noted. Glucose Monitoring: finger pricks. Patient checking occasionally. Hypoglycemic Episodes: none. Patient is aware of hypoglycemic symptoms and knowledgeable about treatment. Patient is mostly compliant with diet plan. Last retinal exam 09/26/2023. Denies associated neuropathy, polydipsia, polyphagia, poor wound healing, ulcers, change in vision and retinopathy. Last A1C date 10/27/2023; results 6.8. Last microalbumin date 10/27/2023; results 2.18. Hyperlipidemia and hypertension - Taking medication as prescribed, see med list. No medication sideeffects noted. Patient is exercising -walking. Denies associated chest discomfort, chest heaviness, chest pressure, chest tightness, edema, palpitations and shortness of breath. BP has not been monitored outside of office:. Last lipid profile see below Asthma - patient continues to take Symbicort 2 puffs twice a day and albuterol inhaler as needed. Symptoms well-controlled with the medication. Taking his albuterol inhaler about twice a week. No nighttime awakenings with SOB. Singulair 10 mg daily. DEIDRE/Insomnia - continues to take Ativan 0.5 mg at bedtime as needed for anxiety. Also taking trazodone 1 tablet at hour of sleep, bupropion 150 mg daily. Cymbalta 60 mg daily. Medications are for GADand insomnia. Chronic pain - Well controlled with pain medications. Continues to follow with [facility] for pain management. Right leg swelling and redness - Pt complains of ongoing intermittent swelling for the past severalmonths. However recently developed cracks in his heels, and a small scratch on calf of leg. Lower leg is swollen, red, and warm to touch. Started noticing the redness 1 week ago. Progressively getting worse. Left sciatica - Pt complains of severe left hip pain with radiation down left leg to knee. Associated with numbness and tingling. Fell about 3 months ago and since then has had ongoing sciatic nerve pain. Has tried exercises with no relief of symptoms. Has also tried voltaren cream with moderate relief of symptoms. No loss of bowel or bladder control Reviewed last labs Latest Reference Range & Units 10/27/23 08:11 12/30/23 14:05 Triglycerides <=174 mg/dL 109 Cholesterol <200 mg/dL 142 Non-HDL Cholesterol <=159 mg/dL 96 HDL Cholesterol >39 mg/dL 46 LDL Cholesterol <=129 mg/dL 74 Sodium 135 - 146 mmol/L 135 Potassium 3.5 - 5.1 mmol/L 4.5 Chloride 98 - 107 mmol/L 99 CO2 22 - 32 mmol/L 25 BUN 6 - 20 mg/dL 14 Creatinine 0.6 - 1.2 mg/dL 0.8 Estimated Glomerular Filtration Rate >=60 mL/min >90 Anion Gap 7 - 15 mmol/L 11 Glucose 70 - 120 mg/dL 149 (H) Calcium 8.4 - 10.2 mg/dL 9.2 Magnesium 1.5 - 2.6 mg/dL 2.1 Estimated Average Glucose <126 mg/dL 148 (H) Hemoglobin A1C 4.0 - 5.6 % 6.8 (H) Vitamin B12 232 - 1,245 pg/mL 338 PAIN MANAGEMENT DRUG PANEL, URINE W/ INTERPRETATION Rpt ! Compliance Interpretation Based on the medication information [...] at a concentration below the limitof quantitation. Valid Interpretation Normal Amphetamines Screen, U Negative Negative Benzodiazepines Screen, U Negative Refer to confirmation results ! Cannabinoids Screen, U Negative Refer to confirmation results ! Cocaine Metabolite Screen, U Negative Negative Fentanyl Screen, U Negative Negative Hydrocodone Screen, U Negative Refer to confirmation results ! Methadone Metabolite Screen, U Negative Negative Morphine/Codeine Screen, U Negative Negative Oxycodone Screen, U Negative Refer to confirmation results ! HYDROCODONE, URINE CONFIRMATION Rpt ! OXYCODONE / OXYMORPHONE, URINE CONFIRMATION Rpt ! Dihydrocodeine Confirmation, U Negative Negative Hydrocodone Confirmation, U Negative ng/mL 70 (H) Hydromorphone Confirmation, U Negative Negative Oxycodone Confirmation, U Negative Negative Oxymorphone Confirmation, U Negative ng/mL 170 (H) BENZODIAZEPINES, URINE CONFIRMATION Rpt ! Alpha-Hydroxyalprazolam Confirmation, U Negative Negative 7-Aminoclonazepam Confirmation, U Negative Negative Nordiazepam Confirmation, U Negative Negative Lorazepam Confirmation, U Negative ng/mL 51 (H) Oxazepam Confirmation, U Negative Negative Temazepam Confirmation, U Negative Negative THC METABOLITE, URINE CONFIRMATION Rpt ! Creatinine, U mg/dL 44 Albumin / Creatinine Ratio, Urine <30 mg/g Creat 42 (H) Albumin, Random Urine mg/dL 2.18 Creatinine, Random Urine mg/dL 52 (H): Data is abnormally high !: Data is abnormal Rpt: View report in Results Review for more information Review of Systems Constitutional: Negative. HENT: Negative. Eyes: Negative. Respiratory: Negative. Cardiovascular: Negative. Gastrointestinal: Negative. Genitourinary: Negative. Musculoskeletal: Negative. Skin: Redness, warmth, and swelling to right lower extremity. Neurological: Negative. Physical Exam BP 114/68 | Pulse 80 | Temp 36.4 C (97.6 F) | Resp 14 | Wt 119.3 kg (263 lb) | SpO2 96% | BMI 38.82 kg/m | BSA 2.41 m Physical Exam Vitals reviewed. Constitutional: Appearance: Normal appearance. He is normal weight. HENT: Head: Normocephalic. Right Ear: Tympanic membrane, ear canal and external ear normal. Left Ear: Tympanic membrane, ear canal and external ear normal. Nose: Nose normal. Mouth/Throat: Pharynx: Oropharynx is clear. Eyes: Extraocular Movements: Extraocular movements intact. Conjunctiva/sclera: Conjunctivae normal. Pupils: Pupils are equal, round, and reactive to light. Cardiovascular: Rate and Rhythm: Normal rate and regular rhythm. Pulses: Normal pulses. Heart sounds: Normal heart sounds. Pulmonary: Effort: Pulmonary effort is normal. Breath sounds: Normal breath sounds. Abdominal: General: Bowel sounds are normal. Palpations: Abdomen is soft. Musculoskeletal: General: Swelling and tenderness present. Normal range of motion. Right lower leg: Swelling and tenderness present. Edema present. Comments: Redness and warmth to right lower extremity. Mostly anterior. Skin: General: Skin is warm and dry. Capillary Refill: Capillary refill takes less than 2 seconds. Neurological: Mental Status: He is alert and oriented to person, place, and time. Mental status is at baseline. Psychiatric: Mood and Affect: Mood normal. Assessment and Plan Pure hypercholesterolemia (Primary) - LIPID PANEL WITH DIRECT LDL IF TG IS HIGH; Future; Expected date: 04/08/2024 Morbid obesity due to excess calories (HCC) - HEMOGLOBIN A1C; Future; Expected date: 04/08/2024 - COMPREHENSIVE METABOLIC PANEL; Future; Expected date: 04/08/2024 - LIPID PANEL WITH DIRECT LDL IF TG IS HIGH; Future; Expected date: 04/08/2024 Type 2 diabetes mellitus with hemoglobin A1c goal of less than 7.0% (HCC) - HEMOGLOBIN A1C; Future; Expected date: 04/08/2024 - COMPREHENSIVE METABOLIC PANEL; Future; Expected date: 04/08/2024 - LIPID PANEL WITH DIRECT LDL IF TG IS HIGH; Future; Expected date: 04/08/2024 HTN, goal below 140/90 - COMPREHENSIVE METABOLIC PANEL; Future; Expected date: 04/08/2024 Mild persistent asthma without complication - Albuterol Sulfate HFA 108 (90 Base) MCG/ACT Inhalation Aerosol Solution; Inhale 2 Puffs by mouth every 4 hours as needed for Wheezing or Shortness of Breath. DEIDRE (generalized anxiety disorder) - lorazepam 0.5 mg at night as needed - Wellbutrin 150 mg daily Cellulitis of right lower extremity - Cephalexin 500 MG Oral Capsule (Keflex); Take 1 Capsule by mouth in the morning and 1 Capsule at noon and 1 Capsule in the evening and 1 Capsule before bedtime. Do all this for 10 days. Follow Up: Return in about 6 months (around 10/09/2024) for Return with [facility]. | For: Return with [facility] Wrap-Up Will follow up with labs when resulted. Pt is to follow up in 6 months Pt is to notify us of any concerning or worsening symptoms. Pt expresses understanding and satisfaction with plan. Time: I spent a total of 30-39 minutes (exact time 35 mins) on the date of service in preparation, delivery, and documentation of the care provided to Anand Sales excluding any time spent in the performance of separately billed services. SAMUEL Vasquez documented in this encounter Nursing Notes * Bailey Howell LPN - 04/08/2024 7:54 AM EDT Chief Complaint Patient presents with Edema Right leg red and swollen for months also a few months ago both legs were sleeping and left leg numb documented in this encounter Plan of Treatment Upcoming Encounters Date Type Department Care Team (Late st Contact Info) Description 10/10/2024 9:40 AM EST Office Visit [facility] [address] [place] [phone] Britni Gomez PA-C [address] [place] [phone] Pending Results Name Type Priority Associated Diagnoses Date /Time HEMOGLOBIN A1C Lab Routine Morbid obesity due to excess calories (HCC) Type 2 diabetes mellitus with hemoglobin A1c goal of less than 7.0% (HCC) 04/08/2024 8:35 AM EDT COMPREHENSIVE METABOLIC PANEL Lab Routine Morbid obesity due to excess calories (HCC) Type 2 diabetes mellitus with hemoglobin A1c goal of less than 7.0% (HCC) HTN, goal below 140/90 04/08/2024 8:35 AM EDT LIPID PANEL WITH DIRECT LDL IF TG IS HIGH Lab Routine Morbid obesity due to excess calories (HCC) Type 2 diabetes mellitus with hemoglobin A1c goal of less than 7.0% (HCC) Pure hypercholesterolemia 04/08/2024 8:35 AM EDT Scheduled Orders Name Type Priority Associated Diagnoses Orde r Schedule HEMOGLOBIN A1C Lab Routine Morbid obesity due to excess calories (HCC) Type 2 diabetes mellitus with hemoglobin A1c goal of less than 7.0% (HCC) Expected: 04/08/2024 (Approximate), Expires: 04/08/2025 COMPREHENSIVE METABOLIC PANEL Lab Routine Morbid obesity due to excess calories (HCC) Type 2 diabetes mellitus with hemoglobin A1c goal of less than 7.0% (HCC) HTN, goal below 140/90 Expected: 04/08/2024 (Approximate), Expires: 04/08/2025 LIPID PANEL WITH DIRECT LDL IF TG IS HIGH Lab Routine Morbid obesity due to excess calories (HCC) Type 2 diabetes mellitus with hemoglobin A1c goal of less than 7.0% (HCC) Pure hypercholesterolemia Expected: 04/08/2024, Expires: 04/08/2025 Health Maintenance Due Date Last Done Comments Dougherty's Esophagus Surveilance 12/17/2018 12/18/2015, 12/18/2015, 07/10/2014, Additional history exists Cologuard 2020 Fecal Occult Blood Test 2020 Sigmoidoscopy 2020 COVID-19 Vaccine ( season) 2023 HbA1c 04/26/2024 10/27/2023, 11/0 10/2021, 12/07/2020, Additional history exists Influenza Vaccine (FLU shot) (#1) 2024 08/05/2022, 09/19/2019, 06/29/2018, Additional history exists Colonoscopy 07/10/2024 07/10/2014, 07/10/2014 Colorectal Cancer Screening 07/10/2024 Depression Screening 09/16/2024 09/16/2023 Diabetic Eye Exam 09/16/2024 09/16/2023, , 02/16/2019 Diabetic Foot Exam 09/16/2024 09/16/2023, 1 10/05/2021, 05/27/2021, Additional history exists Albumin/Creatinine Ratio 10/27/2024 024, 08/05/2022, 09/19/2019, Additional history exists B-12 10/27/2024 10/27/2023, 11/0 10/2021, 12/07/2020, Additional history exists GFR 10/27/2024 10/27/2023, 11/0 10/2021, 10/13/2021, Additional history exists DTaP,Tdap,and Td [...] of this encounter Visit Diagnoses Diagnosis Pure hypercholesterolemia- Primary Morbid obesity due to excess calories (HCC) Type 2 diabetes mellitus with hemoglobin A1c goal of less than 7.0% (HCC) HTN, goal below 140/90 Unspecified essential hypertension Mild persistent asthma without complication Unspecified asthma DEIDRE (generalized anxiety disorder) Generalized anxiety disorder Cellulitis of right lower extremity Cellulitis and abscess of leg, except foot documented in this encounter Care Teams Nurse First Assist Relationship Specialty Start Date End Date Britni Gomez PA-C [address] [place] [phone] PCP - General Physician Cat Scan Technologist 05/27/21 documented as of this encounter"
--- OUTSIDE RECORDS SUMMARY | 2024-08-11 07:39 | External Medical Summary | Summary of Care ---
Author Name Unknown Organization [facility] Address [address] [place] [address] Phone [phone] Care Team Providers Care Plant Attendant Name Role Phone Britni Gomez PA-C Primary Care Provider Reason for Visit * Reason Comments Outpatient Testing Encounter Details Date Type Department Care Team (Latest Contact Info) Description 04/08/2024 9:00 AM EDT Laboratory Laboratory, [place] [address] [place] [address] [place] [address] [place] [address] Morbid obesity due to excess calories (HCC); Type 2 diabetes mellitus with hemoglobin A1c goal of less than 7.0% (HCC); HTN, goal below 140/90; Pure hypercholesterolemia Allergies Active Allergy Reactions Criticality [...] hemoglobin A1c goal of less than 7.0% ([facility]) TEST BLOOD SUGAR UP TO [...] WITH MORNING AND EVENING MEALS 180 Tablet 4 Active Jardiance 25 MG Oral Tablet (Empagliflozin)Indication s:Type 2 diabetes mellitus with hemoglobin A1c goal of less than 7.0% ([facility]) TAKE ONE (1) TABLET BY [...] 0.5 MG Oral Tablet (Ativan)Indications:Anxie ty TAKE ONE (1) TABLET BY MOUTH AT [...] 4 Active Cephalexin 500 MG Oral Capsule (Keflex)Indications:Cellu litis of right lower extremity Take 1 Capsule by mouth in the morning and 1 Capsule at noon and 1 Capsule in the evening and 1 Capsule before bedtime. Do all this for 10 days. 40 Capsule 4 04/18/20 24 Active documented as of this encounter (statuses [...] Description 10/10/2024 9:40 AM EST Office Visit [facility] [address] [place] [phone] Britni Gomez PA-C [address] [place] [phone] Pending Results Name Type Priority Associated Diagnoses [...] (HCC) Pure hypercholesterolemia 04/08/2024 8:35 AM EDT Health Maintenance Due Date Last [...] as of this encounter Visit Diagnoses Diagnosis Morbid obesity due to excess calories (HCC) Type 2 diabetes mellitus with hemoglobin A1c goal of less than 7.0% (HCC) HTN, goal below 140/90 Unspecified essential hypertension Pure hypercholesterolemia documented in this encounter Care Teams Plant Attendant Relationship Specialty Start Date End Date Britni Gomez PA-C [address] [place] [phone] PCP - General Physician Cigarette Inspector 05/27/21 documented as of this encounter
--- OUTSIDE RECORDS SUMMARY | 2024-08-11 07:39 | External Medical Summary | Summary of Care ---
Author Name Unknown Organization [facility] Address [address] [place] [address] Phone [phone] Care Team Providers Care Warehouse Man Name Role Phone Britni Gomez PA-C Primary Care Provider Reason for Referral * Evaluate & Treat - Unlimited Visits (Within 30 days (routine)) - Pending Review Specialty Diagnoses / Procedures Referred By Patsy bertrand Referred To Contact Gastroenterology Diagnoses Cirrhosis of liver with ascites, unspecified hepatic cirrhosis type (HCC) Britni Gomez PA-C [address] [place] [id number] Referral ID Status Reason Start Date Expiration Date Visits Requested Visits Authorized [id number] Pending Review Specialty Services Required 06/07/[phone] Question Answer Referral Priority Within 30 days (routine) Where should this appointment be scheduled? [facility] For what condition is the patient being referred? Liver conditions Reason for Visit * Reason Onset Date Comments Ultrasound 06/07/2024 LM 06/07 Encounter Details Date Type Department Care Team (Late st Contact Info) Description [facility] [address] [place] [address] Britni Gomez PA-C [address] [place] [address] Ultrasound (LM 06/07) Allergies [...] encounter Miscellaneous Notes * Telephone Encounter - Inez Hunter LPN - 06/07/2024 3:09 PM EDT Left message for pt to return call to [phone] regarding test results below. Britni Gomez PA-C Physician Nurse Emergency - Certified [id number] Copy US shows hepatic cirrhosis and steatosis. [...] Description 10/10/2024 9:40 AM EST Office Visit [facility] [address] [place] [phone] Britni Gomez PA-C [address] [place] [phone] Scheduled Referrals Name Type Priority Associated Diagnoses [...] 110 10/2021, 12/07/2020, Additional history exists GFR 04/08/2025 [...] Primary documented in this encounter Care Teams Warehouse Man Relationship Specialty Start Date End Date Britni Gomez PA-C [address] [place] [phone] PCP - General Physician Nurse Emergency 05/27/21 documented as of this encounter
--- OUTSIDE RECORDS SUMMARY | 2024-08-11 07:39 | External Medical Summary | Summary of Care ---
Author Name Unknown Organization [facility] Address [address] [place] [address] Phone [phone] Care Team Providers Care Loftsman Name Role Phone Bri Gomez PA-C Primary Care Provider Reason for Visit * Reason Comments eRx-Medication Refill Encounter Details Date Type Department Care Team (Late st Contact Info) Description 04/27/[address] [facility] [address] [place] [address] Janina Rice PA-C [facility] [address] [place] [id number] Chronic pain syndrome; Chronic hip pain, unspecified laterality Allergies Active Allergy Reactions Criticality Noted Date Comments Aspirin 06/29/2018 Asthma Valium Nausea/vomiting,Othe r (Please comment) 05/09/2014 sweating documented as of this encounter (statuses as of 04/27/2024) Medications Medication Sig Dispensed Refills Start Date [...] goal of less than 7.0% ([facility]) TEST BLOOD SUGAR UP TO [...] (1) TABLET BY MOUTH DAILY 90 Tablet 12/23/19 24 Active Omeprazole 40 MG Oral [...] FOR ANXIETY 30 Tablet 03/24/20 24 Active Albuterol Sulfate HFA [...] MORNING. 90 Tablet 3 04/21/20 24 Active HYDROcodone-Acetaminophe n 7.5-325 MG Oral TabletIndications:Chroni c pain syndrome,Chronic hip pain, unspecified laterality Take 1 Tablet by mouth every 6 hours as needed for Pain, Severe. 120 Tablet 04/27/20 24 Active HYDROcodone-Acetaminophe n 7.5-325 MG Oral TabletIndications:Chroni c pain syndrome,Chronic hip pain, unspecified laterality Take 1 Tablet by mouth every 6 hours as needed for Pain, Severe. 120 Tablet 03/31/20 24 024 Discontinued documented as of this encounter (statuses as of 04/27/2024) Active Problems Problem Noted Date Diagnosed Date [...] as of this encounter (statuses as of 04/27/2024) Resolved Problems Problem Noted Date Diagnosed Date Resolved Date Hepatic cirrhosis 08/05/2022 04/08/2024 Morbid obesity, unspecified obesity type 06/29/2018 07/19/2018 Overview: Per Obesity protocol #1 High risk medication use 03/09/2017 documented as of this encounter (statuses as of 04/27/2024) Immunizations Name Administration Dates Next Due Hepatitis [...] No 09/16/2023 Does the household have a [facility]? (Household - for ages [...] Telephone Encounter - Bri Gomez PA-C - 04/27/2024 2:21 PM EDT Signed Prescriptions: Disp Refills HYDROcodone-Acetaminophen 7.5-325 MG Oral *120 Ta*0 Sig: Take 1 Tablet by mouth every 6 hours as needed for Pain, Severe. Authorizing Provider: BRI GOMEZ * Telephone Encounter - Beni Crenshaw, [facility] - 04/27/2024 1:45 PM EDT Pending Prescriptions: Disp Refills HYDROcodone-Acetaminophen 7.5-325 MG Oral *120 Ta*0 Sig: Take 1 Tablet by mouth every 6 hours as needed for Pain, Severe. * Telephone Encounter - Beni Crenshaw [facility] - 04/27/2024 1:43 PM EDT I have reviewed the patients controlled substance dispensing history in the Prescription Drug Monitoring Program in compliance with the [facility] regulations before prescribing a controlled substance. PDMP checked on 04/27/2024. Pending Prescriptions: Disp Refills HYDROcodone-Acetaminophen 7.5-325 MG Oral*120 Ta*0 Sig: Take 1 Tablet by mouth every 6 hours as needed for Pain, Severe. Last Visit: 04/08/2024 (in office), Visit date not found (telemedicine) Next Visit: 10/10/2024 Date medication was last filled: 03/31/2024 Date medication is due for refill: 04/28/2024 Pharmacy: [facility] [id number] [address] [place] Is this request for a controlled substance? [...] CONC[facility]TRATION Please approve if appropriate. Thank You, Beni Crenshaw, Pharm-D Clinical Pharmacist [facility] ([facility]) [phone] 04/27/2024, 1:43 PM documented in this encounter Plan of Treatment Upcoming Encounters Date Type Department Care Team (Late st Contact Info) Description 10/10/2024 9:40 AM EST Office Visit [facility] [address] [place] [phone] Bri Gomez PA-C [address] [place] [address] Health Maintenance Due Date [...] laterality documented in this encounter Care Teams Loftsman Relationship Specialty Start Date End Date Bri Gomez PA-C [address] [place] [address] PCP - General Physician Activities Attendant 05/27/21 documented as of this encounter
--- OUTSIDE RECORDS SUMMARY | 2024-08-11 07:39 | External Medical Summary | Summary of Care ---
Author Name Unknown Organization [facility] Address [address] [place] [address] Phone [phone] Care Team Providers Care Technical Business Analyst Name Role Phone Bri Gomez PA-C Primary Care Provider Reason for Visit * Reason Comments eRx-Medication Refill Encounter Details Date Type Department Care Team (Late st Contact Info) Description 05/23/2024 Refill [facility] [address] [place] [address] Bri Gomez PA-C [address] [place] [address] Primary insomnia Allergies Active Allergy Reactions Criticality Noted Date Comments Aspirin 06/29/2018 Asthma Valium Nausea/vomiting,Othe r (Please comment) 05/09/2014 sweating documented as of this encounter (statuses as of 05/24/2024) Medications Medication Sig Dispensed Refills Start Date [...] before bedtime. 10.2 g 11/03/19 24 Active metFORMIN HCl 1000 MG Oral [...] BEDTIME 60 Tablet 5 03/24/20 24 Active Albuterol Sulfate HFA 108 [...] Pain, Severe. 120 Tablet 04/27/20 24 Active Cephalexin 500 MG Oral Capsule (Keflex) Take 1 Capsule by mouth in the morning and 1 Capsule at noon and 1 Capsule before bedtime. Do all this for 10 days. 30 Capsule 05/18/20 24 024 Active Furosemide 20 MG Oral Tablet (Lasix) [...] BY MOUTH DAILY AT BEDTIME 90 Tablet 05/24/20 24 Active LORazepam 0.5 MG Oral Tablet (Ativan)Indications:Anxi ety TAKE 1 TABLET BY MOUTH AT BEDTIME NEEDED FOR ANXIETY 30 Tablet 05/24/20 24 Active Lisinopril 5 MG Oral Tablet (Prinivil) TAKE ONE (1) TABLET BY MOUTH DAILY 90 Tablet 1 11/25/19 24 024 Discontinued Montelukast Sodium 10 MG Oral Tablet (Singulair) TAKE ONE (1) TABLET BY MOUTH EVERY MORNING 90 Tablet 1 11/25/19 24 024 Discontinued DULoxetine HCl 60 MG Oral Capsule Delayed Release Particles (Cymbalta) TAKE ONE (1) CAPSULE BY MOUTH DAILY -DO NOT CHEW CUT OR CRUSH 90 Capsule 11/25/19 24 024 Discontinued traZODone HCl 50 MG Oral Tablet (Desyrel)Indications:Janett heena insomnia TAKE ONE (1) TABLET BY MOUTH DAILY AT BEDTIME 90 Tablet 1 02/21/ 024 Discontinued documented as of this encounter (statuses as of 05/24/2024) Active Problems Problem Noted Date Diagnosed Date [...] as of this encounter (statuses as of 05/24/2024) Resolved Problems Problem Noted Date Diagnosed Date Resolved Date Hepatic cirrhosis 08/05/2022 04/08/2024 Morbid obesity, unspecified obesity type 06/29/2018 07/19/2018 Overview: Per Obesity protocol #1 High risk medication use 03/09/2017 documented as of this encounter (statuses as of 05/24/2024) Immunizations Name Administration Dates Next Due Hepatitis [...] encounter Miscellaneous Notes * Telephone Encounter - Beni Garcia RP - 05/24/2024 3:23 PM EDTSigned Prescriptions: Disp Refills Lisinopril 5 MG Oral Tablet (Prinivil) 90 Tab*1 Sig: TAKE ONE (1) TABLET BY MOUTH DAILYAuthorizing Provider: BRI GOMEZ User: BENI GARCIA Montelukast Sodium 10 MG Oral Tablet (Sing*90 Tab*1 Sig: TAKE ONE (1) TABLET BY MOUTH EVERY MORNING Authorizing Provider: BRI GOMEZ User: BENI GARCIA DULoxetine HCl 60 MG Oral Capsule Delayed *90 Cap*1 Sig: TAKE ONE (1) CAPSULE BY MOUTH DAILY -DO NOT CHEW CUT OR CRUSHAuthorizing Provider: BRI GOMEZ User: BENI GARCIA traZODone HCl 50 MG Oral Tablet (Desyrel) 90 Tab*1 Sig: TAKE ONE (1) TABLET BY MOUTH DAILY AT BEDTIMEAuthorizing Provider: BRI GOMEZ User: BENI GARCIA documented in this encounter Plan of Treatment Upcoming Encounters Date Type Department Care Team (Late st Contact Info) Description 10/10/2024 9:40 AM EST Office Visit [facility] [address] [place] [address] Bri Gomez PA-C [address] [place] [address] Health Maintenance Due Date [...] as of this encounter Visit Diagnoses Diagnosis Primary insomnia Persistent disorder of initiating or maintaining sleep documented in this encounter Care Teams Technical Business Analyst Relationship Specialty Start Date End Date Bri Gomez PA-C [address] [place] [phone] PCP - General Physician Full Time Paramedic 05/27/21 documented as of this encounter
--- OUTSIDE RECORDS SUMMARY | 2024-08-11 07:39 | External Medical Summary ---
Author Name Unknown Address Unknown Organization K01:[facility] [place] [facility] [address] [facility] [address] Laboratory Report Ordering Provider Test Date Status NABIL HORNE 04/08/2024 08:35:47 Final Observation Date Value Abnormality Reference (Units ) Status Triglyceride 04/08/2024 08:35:47 103 <=174 ( mg/dL) Final Triglyceride Reference Range s (mg/dL):
<150 Acceptable
150-174 Borderline high
175-499 High
>=500 Very high Cholesterol 04/08/2024 08:35:47 125 <200 (mg /dL) Final Total Cholesterol Reference Ranges (mg/dL):
<200 Desirable
200-239 Borderline high
>=240 High HDL 04/08/2024 08:35:47 38 Below low normal >39 (mg/dL) Final HDL Cholesterol Reference Ra nges (mg/dL):
>=60 High (Desirable)
<50 Low (Undesirable) For Females
<40 Low (Undesirable) For Males NON-HDL CHOLESTEROL 04/08/2024 08:35:47 87 <=159 (mg/dL) Final Non-HDL Cholesterol Referenc e Range (mg/dL):
<100 Target level for high risk ASCVD patient
<130 Optimal for general population
130-159 Near optimal for general population
160-189 Borderline High
190-219 High
>=220 Very High LDL, (calculated) 04/08/2024 08:35:47 66 <= 129 (mg/dL) Final LDL Cholesterol Reference Ra nges (mg/dL):
<70 Target level for high risk ASCVD patient
<100 Optimal for general population
100-129 Near optimal for general population
130-159 Borderline high
160-189 High
>=190 Very high Performing Location [facility] [place] - [address] [facility] [address]
--- OUTSIDE RECORDS SUMMARY | 2024-08-11 07:39 | External Medical Summary | Summary of Care ---
Author Name Unknown Organization [facility] Address [address] [place] [address] Phone [phone] Care Team Providers Care Cab Supervisor Name Role Phone Britni Gomez PA-C Primary Care Provider Encounter Details Date Type Department Care Team (Latest Contact Info) Description 06/03/2024 7:00 AM EDT - 06/03/2024 11:59 PM EDT Hospital Encounter Radiology, [facility] [address] [place] [address] Arrived Discharge Disposition: Home - Self Care Allergies Active Allergy Reactions Criticality Noted Date Comments Aspirin 06/29/2018 Asthma Valium Nausea/vomiting,Othe r (Please comment) 05/09/2014 sweating documented as of this encounter (statuses as of 06/04/2024) Medications Medication Sig Dispensed Refills Start Date [...] Puffs before bedtime. 10.2 g 4 Active metFORMIN HCl 1000 MG Oral Tablet (Glucophage) TAKE 1 TABLET BY MOUTH TWICE A DAY WITH MORNING AND EVENING MEALS 180 Tablet 4 Active Jardiance 25 MG Oral Tablet (Empagliflozin)Indication s:Type 2 diabetes mellitus with hemoglobin A1c goal of less than 7.0% (HCC) TAKE ONE (1) TABLET BY MOUTH DAILY 90 Tablet 4 Active Omeprazole 40 MG Oral Capsule [...] Wheezing or Shortness of Breath. 8.5 g 4 Active Rosuvastatin Calcium 10 MG Oral [...] as of this encounter (statuses as of 06/04/2024) Active Problems Problem Noted Date Diagnosed Date MEDICATION USE AGREEMENT 09/16/2023 Overview: Vicoden 4 daily for his spinal stenosis and Lorazepam at hs for anxiety. HTN, goal below 140/90 09/16/2023 Morbid obesity due to excess calories 04/26/2020 DEDIRE (generalized anxiety disorder) 04/26/2020 ELROY (obstructive sleep [...] as of this encounter (statuses as of 06/04/2024) Resolved Problems Problem Noted Date Diagnosed Date Resolved Date Hepatic cirrhosis 08/05/2022 04/08/2024 Morbid obesity, unspecified obesity type 06/29/2018 07/19/2018 Overview: Per Obesity protocol #1 High risk medication use 03/09/2017 documented as of this encounter (statuses as of 06/04/2024) Immunizations Name Administration Dates Next Due Hepatitis [...] No 09/16/2023 Does the [facility]? (Household - for [...] Description 10/10/2024 9:40 AM EST Office Visit Family [facility] [address] [place] [address] Britni Gomez PA-C [address] [place] [phone] Health Maintenance Due Date Last Done Comments [...] Not on filedocumented as of this encounter Procedures Procedure Name Priority Date/Time Associated Diagnosis Comments US ABDOMEN LIMITED Routine 06/03/2024 7: 51 AM EDT Elevated serum alkaline phosphatase level documented in this encounter Results * US ABDOMEN LIMITED (06/03/2024 7:51 AM EDT) Anatomical Region Laterality Modality Abdomen, Body Ultrasound 06/04/2024 4:45 AM EDT Impressions 06/04/2024 4:43 AM EDT IMPRESSION Hepatic cirrhosis and steatosis. No discrete hepatic lesion. Narrative 06/04/2024 4:43 AM EDT EXAM US ABDOMEN LIMITED-06/03/2024 7:51 am HISTORY Elevated alk phos TECHNIQUE Sonogram of the right upper quadrant. COMPARISON None. FINDINGS LIVER: Enlarged, 24.6 cm. Increased echotexture and nodular surface contour, compatible with cirrhosis and steatosis. No focal lesion. There is a recannulized paraumbilical vein. BILE DUCTS: No intrahepatic or extrahepatic duct dilatation. The common bile duct measures 5 mm. GALLBLADDER: No cholelithiasis, gallbladder wall thickening, or pericholecystic fluid. PANCREAS: Visualized portions are unremarkable. RIGHT KIDNEY: 13.4 cm in length. No hydronephrosis, shadowing calculi, or focal lesion. OTHER: No ascites. Procedure Note Vincent Nicole MD - 06/04/2024 EXAM US ABDOMEN LIMITED-06/03/2024 7:51 am HISTORY Elevated alk phos TECHNIQUE Sonogram of the right upper quadrant. COMPARISON None. FINDINGS LIVER: Enlarged, 24.6 cm. Increased echotexture and nodular surfacecontour, compatible with cirrhosis and steatosis. No focal lesion. Thereis a recannulized paraumbilical vein. BILE DUCTS: No intrahepatic or extrahepatic duct dilatation. The commonbile duct measures 5 mm. GALLBLADDER: No cholelithiasis, gallbladder wall thickening, orpericholecystic fluid. PANCREAS: Visualized portions are unremarkable. RIGHT KIDNEY: 13.4 cm in length. No hydronephrosis, shadowing calculi, orfocal lesion. OTHER: No ascites. IMPRESSION IMPRESSION Hepatic cirrhosis and steatosis. No discrete hepatic lesion. Daniel BAKER RAD ULTRASOUND documented in this encounter Visit Diagnoses Diagnosis Elevated serum alkaline phosphatase level Other nonspecific abnormal serum enzyme levels documented in this encounter Care Teams Cab Supervisor Relationship Specialty Start Date End Date Britni Gomez PA-C [address] [place] [phone] PCP - General Physician Business Resiliency Manager 05/27/21 documented as of this encounter
--- OUTSIDE RECORDS SUMMARY | 2024-08-11 07:39 | External Medical Summary | Summary of Care ---
Author Name Unknown Organization [facility] Address [address] [place] [address] Phone [phone] Care Team Providers Care Corporate Development Officer Name Role Phone Britni Gomez PA-C Primary Care Provider Reason for Referral * Evaluate & Treat - Unlimited Visits (Within 30 days (routine)) - Pending Review Specialty Diagnoses / Procedures Referred By Patsy bertrand Referred To Contact Gastroenterology Diagnoses Cirrhosis of liver with ascites, unspecified hepatic cirrhosis type (HCC) Britni Gomez PA-C [address] [place] [address] Referral ID Status Reason Start Date Expiration Date Visits Requested Visits Authorized [id number] Pending Review Specialty Services Required 06/07/[phone] Question Answer Referral Priority Within 30 days (routine) Where should this appointment be scheduled? [facility] For what condition is the patient being referred? Liver conditions Reason for Visit * Reason Onset Date Comments Ultrasound 06/07/2024 Encounter Details Date Type Department Care Team (Late st Contact Info) Description [facility] [facility] [address] [place] [address] Britni Gomez PA-C [address] [place] [address] Ultrasound Allergies Active Allergy Reactions Criticality Noted Date Comments Aspirin 06/29/2018 Asthma Valium Nausea/vomiting,Othe r (Please comment) 05/09/2014 sweating documented as of this encounter (statuses as of 06/07/2024) Medications Medication Sig Dispensed Refills Start Date End Date Status SHAWNTOUCH DELDEANN LANCETS 33G MISC USE DIRECTED TO [...] Description 10/10/2024 9:40 AM EST Office Visit [facility] [address] [place] [address] Britni Gomez PA-C [address] [place] [address] Scheduled Referrals Name Type [...] Primary documented in this encounter Care Teams Corporate Development Officer Relationship Specialty Start Date End Date Britni Gomez PA-C [address] [place] [address] PCP - General Physician Shield Runner 05/27/21 documented as of this encounter
--- OUTSIDE RECORDS SUMMARY | 2024-08-11 07:39 | External Medical Summary | Summary of Care ---
Author Name Unknown Organization [facility] Address [address] [place] [address] Phone [phone] Care Team Providers Care Instructional Leader Name Role Phone Bri Gomez PA-C Primary Care Provider Reason for Visit * Reason Comments eRx-Medication Refill Encounter Details Date Type Department Care Team (Late st Contact Info) Description 05/23/2024 Refill Family [facility] [address] [place] [address] Janina Rice PA-C [facility] [address] [phone] Anxiety Allergies Active Allergy Reactions Criticality Noted [...] morning. 30 Tablet 11 05/18/20 24 Active LORazepam 0.5 MG Oral Tablet (Ativan)Indications:Anxi ety TAKE 1 TABLET BY MOUTH AT BEDTIME NEEDED FOR ANXIETY 30 Tablet 05/24/20 24 Active LORazepam 0.5 MG Oral Tablet (Ativan)Indications:Anxi ety TAKE ONE (1) TABLET BY MOUTH AT BEDTIME NEEDED FOR ANXIETY 30 Tablet 03/24/20 24 024 Discontinued documented as of this [...] Telephone Encounter - Bri Gomez PA-C - 05/24/2024 3:02 PM EDT Signed Prescriptions: Disp Refills LORazepam 0.5 MG Oral Tablet (Ativan) 30 Tab*0 Sig: TAKE 1 TABLET BY MOUTH AT BEDTIME NEEDED FOR ANXIETY Authorizing Provider: BRI GOMEZ * Telephone Encounter - Nicole Moncada [facility] - 05/24/2024 3:00 PM EDTPending Prescriptions: Disp Refills LORazepam 0.5 MG Oral Tablet [Pharmacy Med*30 Tab*0 Sig: TAKE 1 TABLET BY MOUTH AT BEDTIME NEEDED FOR ANXIETY * Telephone Encounter - Nicole Moncada [facility] - 05/24/2024 3:00 PM EDT I have reviewed the patients controlled substance dispensing history in the Prescription Drug Monitoring Program in compliance with the [facility] regulations before prescribing a controlled substance. PDMP checked on 05/24/2024. Pending Prescriptions: Disp Refills LORazepam 0.5 MG Oral Tablet (Ativan) [Ph*30 Tab*0 Sig: TAKE 1 TABLET BY MOUTH AT BEDTIME NEEDED FOR ANXIETY Last Visit: 04/08/2024 (in office), Visit date not found (telemedicine) Next Visit: 10/10/2024 Date medication was last filled: 04/20/24 Date medication is due for refill: 05/19/24 Pharmacy: [facility] [id number] [address] [place] Is this request [...] REQUEST. [employer] [facility] Please approve if appropriate. Nicole Almanza Clinical Pharmacist [facility] ([facility]) [phone] 05/24/2024, 3:00 PM documented in this encounter Plan of Treatment Upcoming Encounters Date Type Department Care Team (Late st Contact Info) Description 10/10/2024 9:40 AM EST Office Visit [facility] [address] [place] [address] Bri Gomez PA-C [address] [place] [address] Health Maintenance Due Date [...] unspecified documented in this encounter Care Teams Instructional Leader Relationship Specialty Start Date End Date Bri Gomez PA-C [address] [place] [address] PCP - General Physician Bird Tender 05/27/21 documented as of this encounter
--- OUTSIDE RECORDS SUMMARY | 2024-08-11 07:39 | External Medical Summary | Summary of Care ---
Author Name Unknown Organization [facility] Address [address] [facility] [address] Phone [phone] Care Team Providers Care [employer] Teacher Name Role Phone Bri Gomez PA-C Primary Care Provider Reason for Visit * Reason Comments eRx-Medication Refill Encounter Details Date Type Department Care Team (Late st Contact Info) Description 05/27/[address] [facility] [address] [place] [address] Bri Gomez PA-C [address] [place] [address] Chronic pain syndrome; Chronic hip pain, unspecified laterality Allergies Active Allergy Reactions Criticality Noted Date Comments Aspirin 06/29/2018 Asthma Valium Nausea/vomiting,Othe r (Please comment) 05/09/2014 sweating documented as of this encounter (statuses as of 05/30/2024) Medications Medication Sig Dispensed Refills Start Date End Date Status ONETOUCH DELICA LANCETS 33G MISC USE DIRECTED TO TEST BLOOD SUGAR TWICE A DAY E11.9 100 Each 11 12/23/19 19 Active OneTouch Verio In Vitro Strip (Glucose Blood)Indications:Type 2 diabetes mellitus with hemoglobin A1c goal of less than 7.0% ([facility]) USE DIRECTED TO TEST BLOOD SUGAR TWICE A DAY E11.9 100 Strip 11 08/05/20 22 Active True Metrix Meter w/Device KitIndications:Type 2 diabetes mellitus with hemoglobin A1c goal of less than 7.0% ([facility]) TEST BLOOD SUGAR UP TO [...] BEDTIME 90 Tablet 1 05/24/20 24 Active LORazepam 0.5 MG Oral Tablet (Ativan)Indications:Anxi ety TAKE 1 TABLET BY MOUTH AT BEDTIME NEEDED FOR ANXIETY 30 Tablet 05/24/20 24 Active HYDROcodone-Acetaminophe n 7.5-325 MG Oral TabletIndications:Chroni c pain syndrome,Chronic hip pain, unspecified laterality Take 1 Tablet by mouth every 6 hours as needed for Pain, Moderate. 120 Tablet 05/30/20 24 Active HYDROcodone-Acetaminophe n 7.5-325 MG Oral TabletIndications:Chroni c pain syndrome,Chronic hip pain, unspecified laterality Take 1 Tablet by mouth every 6 hours as needed for Pain, Severe. 120 Tablet 04/27/20 24 024 Discontinued Cephalexin 500 MG Oral Capsule (Keflex) Take 1 Capsule by mouth in the morning and 1 Capsule at noon and 1 Capsule before bedtime. Do all this for 10 days. 30 Capsule 05/18/20 24 024 documented as of this encounter (statuses as of 05/30/2024) Active Problems Problem Noted Date Diagnosed Date [...] as of this encounter (statuses as of 05/30/2024) Resolved Problems Problem Noted Date Diagnosed Date Resolved Date Hepatic cirrhosis 08/05/2022 04/08/2024 Morbid obesity, unspecified obesity type 06/29/2018 07/19/2018 Overview: Per Obesity protocol #1 High risk medication use 03/09/2017 documented as of this encounter (statuses as of 05/30/2024) Immunizations Name Administration Dates Next Due Hepatitis [...] No 09/16/2023 Does the household have a [facility] source of income? (Household - for ages [...] Telephone Encounter - Bri Gomez PA-C - 05/30/2024 7:37 AM EDT Signed Prescriptions: Disp Refills HYDROcodone-Acetaminophen 7.5-325 MG Oral *120 Ta*0 Sig: Take 1 Tablet by mouth every 6 hours as needed for Pain, Moderate. Authorizing Provider: BRI GOMEZ * Telephone Encounter - Bri Gomez PA-C - 05/30/2024 7:37 AM EDT Signed Prescriptions: Disp Refills HYDROcodone-Acetaminophen 7.5-325 MG Oral *120 Ta*0 Sig: Take 1 Tablet by mouth every 6 hours as needed for Pain, Moderate. Authorizing Provider: BRI GOMEZ * Telephone Encounter - Mary Acharya cartridge loader - 05/28/2024 11:35 AM EDT patient calling to check on status of medication. Patient states that he runs out of medication today Thank you, Mary Acharya Database Specialist I [facility] ([facility]) 05/28/2024,11:35 AM * Telephone Encounter - Luis Daniel Sargent [facility] - 05/28/2024 9:16 AM EDT Pending Prescriptions: Disp Refills HYDROcodone-Acetaminophen 7.5-325 MG Oral *120 Ta*0 Sig: TAKE ONE (1) TABLET BY MOUTH EVERY 6 HOURS NEEDED FOR SEVERE PAIN * Telephone Encounter - Luis Daniel Sargent [facility] - 05/28/2024 9:15 AM EDT I have reviewed the patients controlled substance dispensing history in the Prescription Drug Monitoring Program in compliance with the [facility] regulations before prescribing a controlled substance. PDMP checked on 05/28/2024. Pending Prescriptions: Disp Refills HYDROcodone-Acetaminophen 7.5-325 MG Oral*120 Ta*0 Sig: TAKE ONE (1) TABLET BY MOUTH EVERY 6 HOURS NEEDED FOR SEVERE PAIN Last Visit: 04/08/2024 (in office), Visit date not found (telemedicine) Next Visit: 10/10/2024 Date medication was last filled: 04/27/24 Date medication is due for refill: 05/26/24 Pharmacy: [facility] [id number] [place] Is this request for a controlled substance? [...] REQUEST. [facility] Please approve if appropriate. Thanks, Luis Daniel Sargent, Maria DD Clinical Pharmacist [facility] ([facility]) [phone] 05/28/2024, 9:16 AM documented in this encounter Plan of Treatment Upcoming Encounters Date Type Department Care Team (Late st Contact Info) Description 10/10/2024 9:40 AM EST Office Visit [facility] [address] [place] [id number] Bri Gomez PA-C [address] [place] [address] Health Maintenance Due Date Last Done Comments [...] laterality documented in this encounter Care Teams [employer] Teacher Relationship Specialty Start Date End Date Bri Gomez PA-C [address] [place] [id number] PCP - General Physician Bore Mill Operator 05/27/21 documented as of this encounter
--- OUTSIDE RECORDS SUMMARY | 2024-08-11 07:40 | External Medical Summary | Summary of Care ---
Author Name Unknown Organization [facility] Address [address] [place] [address] Phone [phone] Care Team Providers Care Louver Door Assembler Name Role Phone Britni Gomez PA-C Primary Care Provider Reason for Visit * Reason Comments eRx-Medication Refill Encounter Details Date Type Department Care Team (Late st Contact Info) Description 03/23/2024 Refill [facility] [address] [place] [address] Britni Gomez PA-C [address] [place] [address] Anxiety Allergies Active Allergy Reactions Criticality Noted Date Comments Aspirin 06/29/2018 Asthma Valium Nausea/vomiting,Othe r (Please comment) 05/09/2014 sweating documented as of this encounter (statuses as of 03/24/2024) Medications Medication Sig Dispensed Refills Start Date [...] of less than 7.0% ([facility]) USE DIRECTED TO TEST BLOOD SUGAR TWICE A DAY E11.9 100 Strip 11 08/05/20 22 Active True Metrix Meter w/Device KitIndications:Type 2 diabetes mellitus with hemoglobin A1c goal of less than 7.0% ([facility]) TEST BLOOD SUGAR UP TO FOUR (4) TIMES DAILY--[facility] ONLY ALLOWS ONCE DAILY TESTING Dx: [...] MEAL 180 Capsule 1 01/22/20 24 Active HYDROcodone-Acetaminophe n 7.5-325 MG Oral TabletIndications:Chroni c pain syndrome,Chronic hip pain, unspecified laterality Take 1 Tablet by mouth every 6 hours as needed for Pain, Severe. 120 Tablet 03/02/20 24 Active Gabapentin 300 MG Oral Capsule [...] FOR ANXIETY 30 Tablet 03/24/20 24 Active Gabapentin 300 MG Oral Capsule (Neurontin) TAKE 1 CAPSULE BY MOUTH 4 TIMES A DAY ( IN THE MORNING - NOON - IN THE EVENING - AT BEDTIME ) 120 Capsule 5 09/23/20 23 024 Discontinued tiZANidine HCl 4 MG Oral Tablet (Zanaflex) TAKE 1 TABLET BY MOUTH IN THE MORNING & AT BEDTIME 60 Tablet 5 09/23/20 23 024 Discontinued LORazepam 0.5 MG Oral Tablet (Ativan)Indications:Anxi ety TAKE ONE (1) TABLET BY MOUTH AT BEDTIME NEEDED FOR ANXIETY 30 Tablet 5 10/27/19 24 024 Discontinued documented as of this encounter (statuses as of 03/24/2024) Active Problems Problem Noted Date Diagnosed Date [...] as of this encounter (statuses as of 03/24/2024) Resolved Problems Problem Noted Date Diagnosed Date Resolved Date Morbid obesity, unspecified obesity type 06/29/2018 07/19/2018 Overview: Per Obesity protocol #1 High risk medication use 03/09/2017 documented as of this encounter (statuses as of 03/24/2024) Immunizations Name Administration Dates Next Due Hepatitis [...] Telephone Encounter - Jay Rice PA-C - 03/24/2024 11:05 AM EDTSigned Prescriptions: Disp Refills Gabapentin 300 MG Oral Capsule (Neurontin) 120 Ca*5 Sig: TAKE ONE (1) CAPSULE BY MOUTH FOUR (4) TIMES A DAY ( IN THE MORNING - NOON - IN THE EVENING - AT BEDTIME ) Authorizing Provider: JAY RICE tiZANidine HCl 4 MG Oral Tablet (Zanaflex) 60 Tab*5 Sig: TAKE 1 TABLET BY MOUTH TWICE DAILY - IN THE MORNING AND AT BEDTIME Authorizing Provider: JAY RICE LORazepam 0.5 MG Oral Tablet (Ativan) 30 Tab*0 Sig: TAKE ONE (1) TABLET BY MOUTH AT BEDTIME NEEDED FOR ANXIETY Authorizing Provider: JAY RICE * Telephone Encounter - Elizabet Sood [facility] - 03/24/2024 6:52 AM EDT Pending Prescriptions: Disp Refills Gabapentin 300 MG Oral Capsule [Pharmacy M*120 Ca*5 Sig: TAKE ONE (1) CAPSULE BY MOUTH FOUR (4) TIMES A DAY ( IN THE MORNING - NOON - IN THE EVENING - AT BEDTIME ) tiZANidine HCl 4 MG Oral Tablet [Pharmacy *60 Tab*5 Sig: TAKE 1 TABLET BY MOUTH TWICE DAILY - IN THE MORNING AND AT BEDTIME LORazepam 0.5 MG Oral T ablet [Pharmacy Med*30 Tab*5 Sig: TAKE ONE (1) TABLET BY MOUTH AT BEDTIME NEEDED FOR ANXIETY * Telephone Encounter - Elizabet Sood RPh - 03/24/2024 6:51 AM EDT I have reviewed the patients controlled substance dispensing history in the Prescription Drug Monitoring Program in compliance with the [facility] regulations before prescribing a controlled substance. PDMP checked on 03/24/2024. Pending Prescriptions: Disp Refills LORazepam 0.5 MG Oral Tablet (Ativan) [Ph*30 Tab*5 Sig: TAKE ONE (1) TABLET BY MOUTH AT BEDTIME NEEDED FOR ANXIETY Last Visit: 09/16/2023 (in office), Visit date not found (telemedicine) Next Visit: Visit date not found Date medication was last filled: 02/22/24 Date medication is due for refill: 03/22/24 [facility] [id number] [place] Is this request [...] [facility] Please approve if appropriate. Thank you, Maria D PearceD Clinical Pharmacist [facility] ([facility]) [phone] 03/24/2024, 6:51 AM documented in this encounter Plan of [...] 06/29/2028 06/29/2018, 05/24/2007 Lipid Panel 10/27/2028 10/27/2023, 110 10/2021, 12/07/2020, Additional history exists Pneumococcal Vaccine: [...] unspecified documented in this encounter Care Teams Louver Door Assembler Relationship Specialty Start Date End Date Britni Gomez PA-C [address] [place] [address] PCP - General Physician Janitorial Account Manager 05/27/21 documented as of this encounter
--- OUTSIDE RECORDS SUMMARY | 2024-08-11 07:40 | External Medical Summary | Summary of Care ---
Author Name Unknown Organization [facility] Address [address] [place] [address] Phone [phone] Care Team Providers Care Hog Man Name Role Phone Bri Gomez PA-C Primary Care Provider Reason for Visit * Reason Comments eRx-Medication Refill Encounter Details Date Type Department Care Team (Late st Contact Info) Description 02/22/2024 Refill [facility] [address] [place] [address] Bri Gomez PA-C [address] [place] [address] Chronic pain syndrome; Chronic hip pain, unspecified laterality Allergies Active Allergy Reactions Criticality Noted Date Comments Aspirin 06/29/2018 Asthma Valium Nausea/vomiting,Othe r (Please comment) 05/09/2014 sweating documented as of this encounter (statuses as of 02/26/2024) Medications Medication Sig Dispensed Refills Start Date End Date Status ONETOUCH DELICA LANCETS 33G [facility] USE DIRECTED TO TEST BLOOD SUGAR TWICE A DAY E11.9 100 Each 11 9 Active Albuterol Sulfate HFA 108 (90 Base) MCG/ACT Inhalation Aerosol Solution INHALE TWO (2) PUFFS BY MOUTH EVERY FOUR (4) HOURS NEEDED FOR WHEEZING. 8.5 g 4 2 Active OneTouch Verio In Vitro Strip (Glucose Blood)Indications:Type 2 diabetes mellitus with hemoglobin A1c goal of less than 7.0% ([facility]) USE DIRECTED TO TEST BLOOD SUGAR TWICE A DAY E11.9 100 Strip 11 2 Active True Metrix Meter w/Device KitIndications:Type 2 diabetes mellitus with hemoglobin A1c goal of less than 7.0% ([facility]) TEST BLOOD SUGAR UP TO FOUR (4) TIMES DAILY--[facility] ONLY ALLOWS ONCE DAILY TESTING Dx: E11.9 1 Kit 2 Active buPROPion HCl ER (XL) 150 MG Oral Tablet Extended Release 24 Hour (Wellbutrin XL)Indications:DEIDRE (generalized anxiety disorder) Take 1 Tablet by mouth in the morning. 30 Tablet 3 Active Triamcinolone Acetonide 0.1 % External Cream (Aristocort)Indications:L ichenified rash Apply topically to affected area 2 times a day. To affected area. 60 g 3 Active Gabapentin 300 MG Oral Capsule (Neurontin) TAKE 1 CAPSULE BY MOUTH 4 TIMES A DAY ( IN THE MORNING - NOON - IN THE EVENING - AT BEDTIME ) 120 Capsule 3 Active tiZANidine HCl 4 MG Oral Tablet (Zanaflex) TAKE 1 TABLET BY MOUTH IN THE MORNING & AT BEDTIME 60 Tablet 3 Active predniSONE 10 MG Oral Tablet (Deltasone)Indications:Br onchitis, complicated Take 4 pills by mouth for 3 days, 3 pills for 3 days, 2 pills for 3 days and 1 pill for 3 days 30 Tablet 3 Active LORazepam 0.5 MG Oral Tablet (Ativan)Indications:Anxie ty TAKE ONE (1) TABLET BY MOUTH AT BEDTIME NEEDED FOR ANXIETY 30 Tablet 4 Active Budesonide-Formoterol Fumarate 80-4.5 MCG/ACT Inhalation Aerosol (Symbicort)Indications:Mi ld persistent asthma without complication Inhale 2 Puffs by mouth in the morning and 2 Puffs before bedtime. 10.2 g 4 Active Lisinopril 5 MG Oral Tablet (Prinivil) TAKE ONE (1) TABLET BY MOUTH DAILY 90 Tablet 4 Active Montelukast Sodium 10 MG Oral Tablet (Singulair) TAKE ONE (1) TABLET BY MOUTH EVERY MORNING 90 Tablet 4 Active DULoxetine HCl 60 MG Oral Capsule Delayed Release Particles (Cymbalta) TAKE ONE (1) CAPSULE BY MOUTH DAILY -DO NOT CHEW CUT OR CRUSH 90 Capsule 1 4 Active Rosuvastatin Calcium 10 MG Oral [...] EVENING MEAL 180 Capsule 1 4 Active HYDROcodone-Acetaminophen 7.5-325 MG Oral TabletIndications:Chronic pain syndrome,Chronic hip pain, unspecified laterality Take 1 Tablet by mouth every 6 hours as needed for Pain, Moderate. 120 Tablet 4 Active documented as of this encounter (statuses as of 02/26/2024) Active Problems Problem Noted Date Diagnosed Date [...] as of this encounter (statuses as of 02/26/2024) Resolved Problems Problem Noted Date Diagnosed Date Resolved Date Morbid obesity, unspecified obesity type 06/29/2018 07/19/2018 Overview: Per Obesity protocol #1 High risk medication use 03/09/2017 documented as of this encounter (statuses as of 02/26/2024) Immunizations Name Administration Dates Next Due Hepatitis B, 20+ yrs 03/05/2010,11/05/2009,10/05 Pneumococcal Conjugate Vacc, 13 Valent (Prevnar) 02/01/2015 Pneumococcal Polysaccharide PPV23 (Pneumovax) 06/10/2017 Seasonal Influenza, PF, 6 M & above, IM , (FluLaval or Fluzone) 08/05/2022,09/19/2019,06/29/2018 Seasonal Influenza, Quadriva lent, No Preserve, IM 07/24/2016,08/06/2015 Seasonal Influenza, Split, I IV3, With Preserve, Inj 10/21/2013,05/24/2007 TD, Preservative Free 06/29/2018 TDAP (age 11 and older)(Adacel) 05/24/2007 documented as of this encounter Social [...] money to get more. Never true 09/16/2023 Sex and Gender Information Value Date Recorded Sex Assigned at Male 12/27/2018 7:27 AM EDT Gender Identity Male 12/27/2018 7:27 AM EDT Sexual Orientation Straight 12/27/2018 7: 27 AM EDT Job Start Date Occupation Industry Not on file Not on file Not on file documented as of this encounter Miscellaneous Notes * Telephone Encounter - Bri Gomez PA-C - 02/26/2024 10:26 AM EDT Refused Prescriptions: Disp Refills HYDROcodone-Acetaminophen 7.5-325 MG Oral *120 Ta*0 Sig: Take 1 Tablet by mouth every 6 hours as needed for Pain, Moderate. Refused By: BRI GOMEZ Reason for Refusal: Too soon * Telephone Encounter - Elba Ackerman [facility] - 02/26/2024 4:09 AM EDTPending Prescriptions: Disp Refills HYDROcodone-Acetaminophen 7.5-325 MG Oral *120 Ta*0 Sig: Take 1 Tablet by mouth every 6 hours as needed for Pain, Moderate. * Telephone Encounter - Neida Mcbride [facility] - 02/23/2024 2:50 PM EDT PDMP review and script is too soon to refill. May be requested two full business days prior to nextdu. Encounter postponed until 02/25. Please recheck PDMP and route to provider on this date if appropriate. I have reviewed the patients controlled substance dispensing history in the Prescription Drug Monitoring Program in compliance with the [facility] regulations before prescribing a controlled substance. PDMP checked on 02/23/2024. Pending Prescriptions: Disp Refills HYDROcodone-Acetaminophen 7.5-325 MG Oral*120 Ta*0 Sig: TAKE ONE (1) TABLET BY MOUTH EVERY SIX (6) HOURS NEEDED FOR MODERATE PAIN Last Visit: 09/16/2023 (in office), Visit date not found (telemedicine) Next Visit: 03/21/2024 Date medication was last filled: 02/01/24 Date medication is due for refill: 03/01/24 [facility] [id number] [place] Is this request for [...] [facility] Please approve if appropriate. Thanks, Neida Mcbride, PharmD Clinical Pharmacist [facility] ([facility]) [phone] 02/23/2024 2:50 PM documented in this encounter Plan of Treatment Upcoming Encounters Date Type Department Care Team (Late st Contact Info) Description 03/21/2024 2:20 PM EDT [facility] Visit [facility] [address] [place] [address] Bri Gomez PA-C [address] [place] [address] Health Maintenance Due Date Last Done Comments [...] laterality documented in this encounter Care Teams Hog Man Relationship Specialty Start Date End Date Bri Gomez PA-C [address] [phone] PCP - General Physician Back Hoe Operator 05/27/21 documented as of this encounter
--- OUTSIDE RECORDS SUMMARY | 2024-08-11 07:40 | External Medical Summary | Summary of Care ---
Author Name Unknown Organization [facility] Address [address] [place] [address] Phone [phone] Care Team Providers Care Electronic Induction Hardener Name Role Phone Bri Gomez PA-C Primary Care Provider Reason for Visit * Reason Comments eRx-Medication Refill Encounter Details Date Type Department Care Team (Late st Contact Info) Description 03/01/2024 Refill [facility] [address] [place] [id number] Bri Gomez PA-C [address] [place] [address] Chronic pain syndrome; Chronic hip pain, unspecified laterality Allergies Active Allergy Reactions Criticality Noted Date Comments Aspirin 06/29/2018 Asthma Valium Nausea/vomiting,Othe r (Please comment) 05/09/2014 sweating documented as of this encounter (statuses as of 03/02/2024) Medications Medication Sig Dispensed Refills Start Date End Date Status [facility] DIRECT[facility] TO TEST BLOOD SUGAR [...] hemoglobin A1c goal of less than 7.0% ([facility]) USE DIRECTED TO TEST BLOOD SUGAR TWICE A DAY E11.9 100 Strip 11 08/05/20 22 Active True Metrix Meter w/Device KitIndications:Type 2 diabetes mellitus with hemoglobin A1c goal of less than 7.0% ([facility]) TEST BLOOD SUGAR UP TO FOUR (4) TIMES DAILY--[facility] ALL[facility] ONCE DAILY TESTING Dx: E11.9 [...] a day. To affected area. 60 g 09/16/20 23 Active Gabapentin 300 MG Oral Capsule (Neurontin) TAKE 1 CAPSULE BY MOUTH 4 TIMES A DAY ( IN THE MORNING - NOON - IN THE EVENING - AT BEDTIME ) 120 Capsule 09/23/20 23 Active tiZANidine HCl 4 MG Oral Tablet (Zanaflex) TAKE 1 TABLET BY MOUTH IN THE MORNING & AT BEDTIME 60 Tablet 09/23/20 23 Active predniSONE 10 MG Oral Tablet (Deltasone)Indications:B ronchitis, complicated Take 4 pills by mouth for 3 days, 3 pills for 3 days, 2 pills for 3 days and 1 pill for 3 days 30 Tablet 10/02/20 23 Active LORazepam 0.5 MG Oral Tablet (Ativan)Indications:Anxi ety TAKE ONE (1) TABLET BY MOUTH AT BEDTIME NEEDED FOR ANXIETY 30 Tablet 10/27/19 24 Active Budesonide-Formoterol Fumarate 80-4.5 MCG/ACT Inhalation Aerosol [...] THE MORNING. 90 Tablet 1 11/25/19 24 Active traZODone HCl 50 MG [...] Pain, Severe. 120 Tablet 03/02/20 24 Active HYDROcodone-Acetaminophe n 7.5-325 MG Oral TabletIndications:Chroni c pain syndrome,Chronic hip pain, unspecified laterality Take 1 Tablet by mouth every 6 hours as needed for Pain, Moderate. 120 Tablet 02/01/20 24 024 Discontinued documented as of this encounter (statuses as of 03/02/2024) Active Problems Problem Noted Date Diagnosed Date [...] as of this encounter (statuses as of 03/02/2024) Resolved Problems Problem Noted Date Diagnosed Date Resolved Date Morbid obesity, unspecified obesity type 06/29/2018 07/19/2018 Overview: Per Obesity protocol #1 High risk medication use 03/09/2017 documented as of this encounter (statuses as of 03/02/2024) Immunizations Name Administration Dates Next Due Hepatitis [...] encounter Miscellaneous Notes * Telephone Encounter - Velma Ingram [facility] - 03/02/2024 8:37 AM EDT Signed Prescriptions: Disp Refills HYDROcodone-Acetaminophen 7.5-325 MG Oral *120 Ta*0 Sig: Take 1Tablet by mouth every 6 hours as needed for Pain, Severe.Authorizing Provider: BRI GOMEZ * Telephone Encounter - Velma Ingram [facility] - 03/02/2024 8:37 AM EDT Signed Prescriptions: Disp Refills HYDROcodone-Acetaminophen 7.5-325 MG Oral *120 Ta*0 Sig: Take 1Tablet by mouth every 6 hours as needed for Pain, Severe.Authorizing Provider: BRI GOMEZ * Telephone Encounter - Bri Gomez PA-C - 03/02/2024 8:23 AM EDT Signed Prescriptions: Disp Refills HYDROcodone-Acetaminophen 7.5-325 MG Oral *120 Ta*0 Sig: Take 1 Tablet by mouth every 6 hours as needed for Pain, Severe. Authorizing Provider: BRI GOMEZ * Telephone Encounter - Diana Humphrey CPhT - 03/02/2024 8:19 AM EDT Pt requesting HIGH PRIORITY due to out of med Pt calling to check on status of HYDROcodone-Acetaminophen 7.5-325 MG Oral Tablet . Caller can be reached at [phone] Thank you, Diana Humphrey CPhT [facility] ([facility]) 03/02/2024,8:19 AM * Telephone Encounter - Therese Calderon refrigerated cargo clerk - 03/01/2024 8:18 AM EDT Did you pend patient's preferred pharmacy and medication before forwarding?yes Pharmacy: [facility] [id number] [place] Pending Prescriptions: Disp Refills HYDROcodone-Acetaminophen 7.5-325 MG Oral*120 Ta*0 Sig: TAKE ONE (1) TABLET BY MOUTH EVERY SIX (6) HOURS NEEDED FOR MODERATE PAIN Last Visit: 09/16/2023 (in office), Visit date not found (telemedicine) Next Visit: 03/21/2024 If no future appointments scheduled, and last appointment is greater than a year ago, please schedule patient for a follow-up appointment Last date the medication was ordered: 02/01/24 Is this request for a controlled substance?Yes, What was the last refill date 02/01/24 w/ quantity 120 and dosage 7.5-325mg and Urine Drug Screen was completed Urine Drug Screen: Results for orders placed [...] UPON REQUEST. CUTOFF [employer]CENTRATION Patient Phone Numbers Labs: Lab Results Component Value Date/Time CREAT 0.8 10/27/2023 08:11 AM CREAT 0.7 08/03/2019 08:26 AM POTASSIUM 4.5 10/27/2023 08:11 AM POTASSIUM 4.0 08/03/2019 08:26 AM TSH 0.82 08/05/2022 01:02 PM TSH 1.36 11/08/2018 10:03 AM LDLCALC 74 10/27/2023 08:11 AM LDLCALC 112 08/03/2019 08:26 AM ALT 42 10/13/2022 10:06 AM ALT 307 (H) 08/03/2019 08:26 AM HGBA1C 6.8 (H) 10/27/2023 08:11 AM HGBA1C 6.4 (H) 08/03/2019 08:26 AM documented in this encounter Plan of Treatment Upcoming Encounters Date Type Department Care Team (Late st Contact Info) Description 03/21/2024 2:20 PM EDT Office Visit [facility] [address] [place] [phone] Bri Gomez PA-C [address] [place] [address] Health Maintenance Due Date Last Done Comments [...] laterality documented in this encounter Care Teams Electronic Induction Hardener Relationship Specialty Start Date End Date Bri Gomez PA-C [address] [place] [address] PCP - General Physician Intensive Care Nurse 05/27/21 documented as of this encounter
--- NOTE | 2024-08-11 08:33 | Cardiology Consultation ---
Date of Consultation August 11, 2024 Assessment & Plan (1) Symptomatic anemia: (2) Elevated LFTs: (3) HTN (hypertension): (4) HLD (hyperlipidemia): Plan Assessment: 49 year old male admitted for symptomatic anemia with concerns of acute volume overload. Cardiology requested for assessment and further recommendations. Plan: 1. Symptomatic anemia: 2. Elevated LFTs -Presented with weakness, and H/H 7.2/24.3. GI on consult and plan is to move forward with Transfusion of PRBCs and undergo a endoscopy for further evaluation. -Patient demonstrates some increased swelling of the lower extremities, abdomen is soft and non-tender, larger body habitus. Patient states he has low ETOH consumption, H&P suggest 5 beers per day. -Echocardiogram demonstrates Normal LVEF, no wall motion abnormalities and no significant valvular disease, he is ok to pursue further GI evaluation. -Elevated LFTs, patient denies any known history of liver disease. Abdominal ultrasound is demonstrating Hepatosplenomegaly, but no ascities. Hepatitis panel pending. -Continue Furosemide 40mg IV BID with potassium supplementation. -Recommend daily weights with a standing scale. Close monitoring of renal function and serum electrolytes. Goal serum K> 4.0 and serum Mag 2.0. Strict I&O . -Continued management per GI and primary team 2. Hypertension: -Patient denies history of HTN; however, home medication regimen suggest anti-hypertensive therapies. --Continue Lisinopril 5mg PO QD, and metoprolol tartrate 12.5mg BID -Furosemide as noted above 3. HLD: -Continue Crestor -Recommend [facility] lipid panel Case has been discussed with Dr. Baptiste. Further recommendations regarding plan of care as per his assessment. I spent a total of 40 minutes on the date of service in preparation, delivery, documentation of the care provided to the patient excluding any time spent in the performance of separately billed services. SAMUEL Walton [facility] Supervising Physician Co-Signing Physician Notes I have personally performed a history and physical examination on the patient. I have reviewed the advance practitioner's documentation, and I agree with, and take responsibility for the plan of care. 49-year-old male presented to the emergency department secondary to worsening lower back pain. Severe anemia (Hgb 7.2g/dl) noted on admission. Reports o ccasional dark-colored stools. Denies hematochezia or melena. Abdominal ultrasound noting hepatosplenomegaly. CT of the abdomen pelvis performed 2021 with report of hepatic cirrhosis, splenomegaly, and portal hypertension. Cardiology consultation requested due to to CHF. Echocardiogram reveals preserved LV systolic function and normal diastolic function. Mild edema on examination. I suspect lower extremity edema and abdominal bloating related to patient's cirrhosis and portal hypertension. Consider addition of spironolactone. Continue furosemide as ordered. Management of symptomatic anemia as per internal medicine. Patient may proceed with EGD at this time. No further cardiac testing recommended. I spent a total of 40 minutes on the date of service in preparation, delivery, and documentation of the care provided to this patient, excluding any time spent in the performance of separately billed services. Terry Baptiste DO, [facility] History of Present Illness Reason for Consultation: CHF Requesting Physician: Trent chavezist Attending Physician: Vu Ortega MD History of Present Illness HPI: Patient is a 49 year old male with PMHx significant for HTN, HLD, DM type II, ELROY, obesity, GERD, anxiety, chronic back pain, medical marijuana vaping that was sent to the hospital by [facility] while be evaluated for chronic back pain and reported bladder urgency, occasional incontinence, and Lower extremity weakness. He was sent to the ER for concerns of possible cauda equina. Upon examination, patient is resting comfortably in bed. He denies any chest pain, pressure, palpitations, no shortness of breath or PND. Denies any presyncope or syncope. Patient does endorse that his legs hurt and "feel tight". Also endorses some "belly bloat", but no complaints of N/V/D or constipation. Denies any hematuria or jorge l blood in the stool. Endorses some report history of black stools, but nothing recent. Patient is NPO in anticipation of an upper endoscopy today. H/H 7.2/24.3 with no noted jorge l bleeding AST/ALT elevated, hepatitis panel pending HST 25.7/37.3 EKG SR with PAC, Left atrial enlargement. chest xray: IMPRESSION: Pulmonary vascular congestion. No airspace consolidation. Abdominal US: IMPRESSION: 1. No ascites were visualized. 2. Hepatosplenomegaly was noted. Echocardiogram ordered. Review of telemetry shows SR with occasional PAC and PVC. Rates 90-113bpm. No acute events overnight. Allergies Allergy/AdvReac Type Severity Reaction Status Date / Time diazepam AdvReac Unknown diaphoretic Verified 12/06/13 11:29 ;confused Home Medications Medication Instructions Recorded Confirmed Type albuterol sulfate 90 mcg/actuation 2 puff inhalation Q4 PRN Cough 08/10/24 08/10/24 History aerosol inhaler diclofenac sodium 75 mg 75 mg PO BID 08/10/24 08/10/24 History tablet,delayed release empagliflozin 25 mg tablet 25 mg PO DAILY 08/10/24 08/10/24 History (Jardiance) furosemide 20 mg tablet 20 mg PO DAILY 08/10/24 08/10/24 History gabapentin 300 mg capsule 300 mg PO QID 08/10/24 08/10/24 History hydrocodone 7.5 mg-acetaminophen 7.5 - 235 tab PO QID 08/10/24 08/10/24 History 325 mg tablet lisinopril 5 mg tablet 5 mg PO DAILY 08/10/24 08/10/24 History lorazepam 0.5 mg tablet 0.5 mg PO HS 08/10/24 08/10/24 History metformin 1,000 mg tablet 1,000 mg PO BID 08/10/24 08/10/24 History mometasone-formoterol HFA 100 1 puff inhalation BID 08/10/24 08/10/24 History mcg-5 mcg/actuation aerosol inhaler (Dulangy) montelukast 10 mg tablet 10 mg PO HS 08/10/24 08/10/24 History omeprazole 40 mg capsule,delayed 40 mg PO BID 08/10/24 08/10/24 History release rosuvastatin 10 mg tablet 10 mg PO DAILY 08/10/24 08/10/24 History semaglutide 0.25 mg or 0.5 mg (2 0.25 mg subcut WK 08/10/24 08/10/24 History mg/3 mL) subcutaneous pen injector (Ozempic) tizanidine 4 mg tablet 4 mg PO HS 08/10/24 08/10/24 History trazodone 50 mg tablet 50 mg PO HS 08/10/24 08/10/24 History triamcinolone acetonide 0.1 % 1 applic topical UD 08/10/24 08/10/24 History topical cream Patient History Medical History Chronic back pain Morbid obesity Diabetes mellitus, type II GERD (gastroesophageal reflux disease) ELROY (obstructive sleep apnea) HTN (hypertension) HLD (hyperlipidemia) Surgical History History of spinal surgery History of esophagogastroduodenoscopy (EGD) History of colonoscopy Family History Father Diabetes Social History (Updated 08/10/24 @ 22:59 by Jolie Degroot PA-C) Smoking Status: Current every day smoker Tobacco Type: E-cigarettes / Vaping Second Hand Exposure: No; Do You Dip or Chew Tobacco: No; Tobacco Cessation Education Requested by Patient: No Hx Alcohol Use: Yes Alcohol type: beer Hx Substance Use: Yes Prescribed Medications: Marijuana Last Used Substance: Unknown Preferred Language: Welsh Communication Ability: Effective Modeler Required: No Beliefs That Will Affect Care: None Current Living Situation: Spouse Current Living Situation Comment: in a house Other Information That Helps Us Care for You: No Feels Safe at Home: No Is there a partner from a previous relationship who is making you feel unsafe now?: No Any Concerns about Your Family Situation: No Would You Like to Speak to Someone About Your Situation: No Assistive Devices: Hospital Bed Review of Systems Review of Systems: All systems reviewed & are unremarkable except as noted in HPI & below Physical Exam Constitutional: well developed, well nourished and + overweight; no acute distress and not ill appearing Neck: normal visual inspection and trachea midline Respiratory: normal respiratory effort; no respiratory distress, no labored breathing and no cough Auscultation: + diminished lung sounds (bilateral bases ) and + wheezes; no crackles, no rales and no rhonchi Cardiovascular: Rate/Rhythm: regular rate and regular rhythm Heart Sounds: normal S1 and normal S2; no murmur Vessels: + JVD (difficult to assess ) Skin: no rashes, warm and dry Psychiatric: A+Ox3, euthymic affect Results & Data Vital Signs (Past 12 Hours) Vital Signs Temp Pulse Pulse Resp BP BP Pulse Ox 08/11/24 07:17 36.6 C 79 18 102/59 L 93 08/11/24 02:24 08/11/24 02:24 99 H 08/11/24 02:15 08/11/24 02:15 37 C 99 H 18 128/75 95 08/11/24 02:11 37.0 C 99 H 18 128/75 95 08/10/24 23:38 92 H 19 91 08/10/24 22:32 98 H 19 125/91 91 Pulse Ox O2 Del Method O2 Del Method 08/11/24 07:17 Room Air 08/11/24 02:24 95 Room Air 08/11/24 02:24 08/11/24 02:15 Room Air 08/11/24 02:15 Room Air 08/11/24 02:11 Room Air 08/10/24 23:38 Room Air 08/10/24 22:32 Room Air Laboratory Results Cardiac Enzymes 08/10/24 08/10/24 08/11/24 Range/Units 17:00 22:55 05:56 AST 55 H 36 (13-39) U/L Lactate Dehydrogenase (86-244) U/L Troponin I High Sens 25.7 H 37.3 H D (0-20) pg/ml 08/11/24 Range/Units 08:16 AST (13-39) U/L Lactate Dehydrogenase 133 (86-244) U/L Troponin I High Sens (0-20) pg/ml Coagulation 08/10/24 Range/Units 22:55 PT 10.9 (9.0-12.0) Seconds CBC 08/10/24 08/10/24 08/11/24 Range/Units 17:00 22:55 05:56 WBC 6.50 5.86 (4.8-10.8) K/ul RBC 2.92 L 2.73 L (4.70-6.10) M/uL Hgb 7.6 L 8.1 L 7.2 L (14.0-18.0) g/dl Hct 26.3 L 27.5 L 24.3 L (42.0-52.0) % Plt Count 133 127 L (130-400) K/uL Neut # (Auto) 4.21 3.91 (1.40-6.50) K/uL Lymph # (Auto) 1.07 L 0.87 L (1.20-3.40) K/uL Levy # (Auto) 0.76 H 0.53 (0.11-0.59) K/uL Eos # (Auto) 0.37 0.47 (0.00-0.50) K/uL Baso # (Auto) 0.07 0.07 (0.00-0.20) K/uL Comprehensive Metabolic Panel 08/10/24 08/11/24 Range/Units 17:00 05:56 Sodium 137 138 (136-145) mmol/L Potassium 4.2 3.7 (3.5-5.1) mmol/L Chloride 99 98 (98-107) mmol/L Carbon Dioxide 24 31 (21-32) mmol/L BUN 14 13 (6-23) mg/dl Creatinine 0.93 0.91 (0.6-1.4) mg/dl Glucose 80 149 H (70-99(Fasting)) mg/dl Calcium 9.6 9.6 (8.6-10.3) mg/dl AST 55 H 36 (13-39) U/L ALT 19 16 (7-52) U/L Alkaline Phosphatase 158 H 144 H (34-104) U/L Total Protein 7.3 7.0 (6.0-8.3) gm/dl Albumin 3.7 3.6 (3.4-5.0) gm/dl Intake and Output 08/10/24 08/11/24 08/11/24 22:59 06:59 14:59 Intake Total 120 / 470 350 / 470 Output Total 800 / 800 Balance 120 / -330 -450 / -330 Intake: IV 120 / 270 150 / 270 Albumin 25% 25 gm In 100 ml @ 100 / 100 50 mls/hr IV ONE ONE Rx#: [id number] PANTOprazole 80 mg In Dextrose 120 / 120 5% 100 ml @ 480 mls/hr IV ONE STA Rx#:[id number] cefTRIAXone SODIUM 2,000 mg In 50 / 50 50 ml @ 100 mls/hr IV Q24H RANDELL Rx#:[id number] Oral 200 / 200 Output: Urine 800 / 800 Other: # Unmeasured Voids 3 Weight 130.7 kg 128.8 kg Weight Measurement Method [facility]
--- OUTSIDE RECORDS SUMMARY | 2024-08-11 09:04 | External Medical Summary | Summary of Care ---
Author Name Unknown Organization [facility] Address [address] [place] [address] Phone [phone] Care Team Providers Care Cyber Defense Analyst Name Role Phone Britni Gomez PA-C Primary Care Provider Reason for Visit * Reason Comments Pain R hip pain, radiates down to knee * Evaluate & Treat - Unlimited Visits (Within 30 days (routine)) - Authorized Specialty Diagnoses / Procedures Referred By Patsy t Referred To Contact Orthopaedic Surgery / Orthopedics Diagnoses Chronic hip pain, unspecified laterality Britni Gomez PA-C [address] [place] [address] Referral ID Status Reason Start Date Expiration Date Visits Requested Visits Authorized [id number] Authorized Specialty Services Required 08/08/2024 08/08/[phone] Encounter Details Date Type Department Care Team (Latest Contact Info) Description 08/10/2024 3:30 PM EST Office Visit Orthopaedics [facility] [address] [place] [id number] Mary Orozco MD [address] [place] [address] Lumbar back pain with radiculopathy affecting left lower extremity*; Hip pain, left; Primary osteoarthritis of one hip, left; Cauda equina compression (HCC) Allergies Active Allergy Reactions Criticality Noted Date Comments Aspirin 06/29/2018 Asthma Valium Nausea/vomiting,Othe r (Please comment) 05/09/2014 sweating documented as of this encounter (statuses as of 08/10/2024) Medications Medication Sig Dispensed Refills Start Date End Date Status ONETOUCH DELICA LANCETS 33G [facility] USE DIRECTED TO TEST BLOOD SUGAR TWICE [...] MOUTH DAILY 90 Tablet 1 4 Active Diclofenac Sodium 75 MG Oral [...] EVENING MEAL 180 Capsule 1 4 Active LORazepam 0.5 MG Oral Tablet (Ativan)Indications:Anxie ty TAKE ONE (1) TABLET BY MOUTH AT BEDTIME NEEDED FOR ANXIETY 30 Tablet 4 Active HYDROcodone-Acetaminophen 7.5-325 MG Oral TabletIndications:Chronic pain syndrome,Chronic hip pain, unspecified laterality Take 1 Tablet by mouth every 6 hours as needed for Pain, Moderate. 120 Tablet 4 Active documented as of this encounter (statuses as of 08/10/2024) Active Problems Problem Noted Date Diagnosed Date [...] as of this encounter (statuses as of 08/10/2024) Resolved Problems Problem Noted Date Diagnosed Date Resolved Date Hepatic cirrhosis 08/05/2022 04/08/2024 Morbid obesity, unspecified obesity type 06/29/2018 07/19/2018 Overview: Per Obesity protocol #1 High risk medication use 03/09/2017 documented as of this encounter (statuses as of 08/10/2024) Immunizations Name Administration Dates Next Due Hepatitis [...] as of this encounter Progress Notes * Mary Orozco MD - 08/10/2024 4:08 PM EST Anand Sales is a 49 year old male who presents for consultation to [facility] for left hip injury/pain. Consult requested by Britni Gomez PA-C. Anand Sales is here with his/her History: Chief Complaint Patient presents with Pain R hip pain, radiates down to knee Nursing Notes: Angela Cruz, Student 08/10/24 1551 Signed Pt fell out of bed months ago and injured R hip Pt reports that from R hip down to the R knee is numb Pt states pain with walking on certain days Pt states swelling from R knee up to hip Pt reports bladder issues, cannot last long without having to urinate Pt had back surgery in 2012 Patient notes that about 6-7 months ago he fell out of bed and injured his hips. Recently has had worsening pain in the left glute left groin and down the left leg. Has developed some numbness of hisleft thigh as well. Additionally he reports worsening issues with bladder urgency sometimes leadingto incontinence. He notes an odd sensation in the perineal area, denies true numbness but has had altered sensations. Review of systems: All others negative except those noted above in HPI. Review of patient's allergies indicates: Allergen Reactions Aspirin Asthma Valium Nausea/vomiting and Other (Please comment) sweating Current Outpatient Medications Medication Sig Dispense Refill ONETOUCH DELICA LANCETS 33G MISC USE DIRECTED [...] 2 Puffs before bedtime. 10.2 g 12 Gabapentin 300 MG Oral Capsule (Neurontin) TAKE ONE (1) CAPSULE BY MOUTH FOUR (4) TIMES A DAY ( IN THE MORNING - NOON - IN THE EVENING - AT BEDTIME ) 120 Capsule 5 tiZANidine HCl 4 MG Oral Tablet (Zanaflex) TAKE 1 TABLET BY MOUTH TWICE DAILY - IN THE MORNING AND AT BEDTIME 60 Tablet 5 Albuterol Sulfate HFA 108 (90 Base) [...] TABLET BY MOUTH DAILY 90 Tablet 1 Diclofenac Sodium 75 MG Oral Tablet Delayed Release (Voltaren) Take 1 Tablet by mouth in the morning and 1 Tablet before bedtime. With food.. 60 Tablet 5 Ozempic (0.25 or 0.5 MG/DOSE) 2 MG/3ML Solution Pen-injector (Semaglutide(0.25 or 0.5MG/DOS)) Inject 0.25 mg weekly for 4 weeks, then increase to 0.5 mg weekly 3 mL 5 Omeprazole 40 MG Oral Capsule Delayed Release (PriLOSEC) TAKE 1 CAPSULE BY MOUTH 1 HOUR BEFORE FIRST MEAL OF THE DAY AND THEN ONE TAKE 1 CAPSULE EVENING MEAL 180 Capsule 1 LORazepam 0.5 MG Oral Tablet (Ativan) TAKE ONE (1) TABLET BY MOUTH AT BEDTIME NEEDED FOR [id number] Tablet 0 HYDROcodone-Acetaminophen 7.5-325 MG Oral Tablet Take 1 Tablet by mouth every 6 hours as needed forPain, Moderate. 120 Tablet 0 No current facility-administered medications for this visit. Past Medical History: Diagnosis Date Allergic rhinitis, cause unspecified Vicente's esophagus 07/10/14 Degeneration of lumbar or lumbosacral intervertebral disc Esophageal reflux Family history of malignant neoplasm of gastrointestinal tract father Hiatal hernia Mild persistent asthma without complication 02/21/2016 Osteoarthritis Pneumonia Spinal stenosis of lumbar region 06/07/2013 Patient Active Problem List Diagnosis Gastroesophageal reflux disease without esophagitis Chronic hip pain Lumbago Vicente's esophagus MEDICATION USE AGREEMENT Spinal stenosis of lumbar region Mild persistent asthma without complication Pure hypercholesterolemia Type 2 diabetes mellitus with hemoglobin A1c goal of less than 7.0% ([facility]) Body mass index (BMI) of 40.0 to 44.9 in adult ([facility]) ELROY (obstructive sleep apnea) Umbilical hernia without obstruction and without gangrene Morbid obesity due to excess calories ([facility]) DEIDRE (generalized anxiety disorder) HTN, goal below 140/90 Past Surgical History: Procedure Laterality Date COLONOSCOPY, DIAGNOSTIC (RECTUM) 07/10/2014 normal, repeat in 5 yrs/COLONOSCOPY FLEXIBLE PROXIMAL DIAGNOSTIC performed by Gabino Diaz MD at ENDOSCOPY [facility] EGD, FLEXIBLE, DIAGNOSTIC 07/10/2014 vicente's esophagus, repeat in 1 yr/ESOPHAGOGASTRODUODENOSCOPY (EGD), FLEXIBLE, TRANSORAL, DIAGNOSTIC performed by Gabino Diaz MD at ENDOSCOPY [facility] EGD, FLEXIBLE, DIAGNOSTIC N/A 12/18/2015 no significant pathology/recall 3 years/ESOPHAGOGASTRODUODENOSCOPY (EGD), FLEXIBLE, TRANSORAL, DIAGNOSTIC performed by Gabino Diaz MD at ENDOSCOPY [facility] HAND/FINGER SURGERY NEC pc of metal removed from finger INFORMATION 05/23/2013 lumbar laminectomy LAMINOTOMY, SINGLE LUMBAR 05/23/13 REMOVAL OF ADENOIDS, AGE 12+ Adenoids Removal, 12+ Y/O REPAIR INITIAL INGUINAL HERNIA REDUCIBLE AGE 5 OR MORE 1989 Inguianl hernia Repair, age 5+ yr TOTAL HIP REPLACEMENT & PROSTHESIS THR (Hip Total Replacement)-right Social History Socioeconomic History Marital status: Spouse name: Not on file Number of children: Not on file Years of education: Not on file Highest education level: Not on file Occupational History 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 (Adult - for ages 18 years and over): No Does your family have trouble paying for medicine? (Household - for ages 0-17 years): Not on file Food Insecurity: No Food Insecurity (09/16/2023) Food Insecurity Do you need food for this week? (Adult - for ages 18 years and over): No Are you able to get enough food for your family? (Household - for ages 0-17 years): Not on file Does your family need food this week? (Household - for ages 0-17 years): Not on file Do you always have enough food for your family? (Household - for ages 0-17 years): Not on file Transportation Needs: No Transportation Needs (09/16/2023) Transportation Needs Do you have trouble getting a ride to medical visits or work? (Adult - for ages 18 years and over):Never True Does your family have a hard time getting a ride to doctors visits? (Household - for ages 0-17 years): Not on file Has lack of transportation kept you from medical appointments, meetings, work, or from getting things needed for daily living? Check all that apply. (Adult - for ages 18 years and over): Not on file Do you (or your family) have trouble finding or paying for a ride (transportation)? (Household - for ages 0-17 years): Not on file Social Connections: Socially Integrated (09/16/2023) Social Connections How often do you feel lonely or isolated from those around you? (Adult - for ages 18 years and over): Never Housing Stability: Low Risk (09/16/2023) Housing Stability Do you currently live in a long term or have no steady place to sleep at night? (Adult - for ages 18 years and over): No Do you think you are at risk of becoming homeless? (Adult - for ages 18 years and over): No Does your family worry about paying for your home or becoming homeless? (Household - for ages 0-17 years): Not on file Are you homeless or worried that you might be in the future? (Adult - for ages 18 years and over): Not on file Are you (or your family) homeless or worried that you might be in the future? (Household - for ages0-17 years): Not on file Family History Problem Relation Name Age of Onset No Past Hx Sister Shena well Diabetes Father Gastro-intestinal disorder Father Barretts Esophagus, intestinal problems Arthritis Father Mental Disorder Father anxiety Other (Other) Father back problems Neurological Disorder Mother Thyroid Disorder Mother Family History; none relevant to today's HPI Objective: Physical Exam There were no vitals filed for this visit. Estimated body mass index is 40.98 kg/m as calculated from the following: Height as of 07/07/24: 1.753 m (5' 9.02"). Weight as of 07/07/24: 125.9 kg (277 lb 9.6 oz). General: generally well-nourished and in no acute distress HEENT: normocephalic, atraumatic, sclera anicteric. Psych: mood and affect normal , cooperative Card: Peripheral pulses: normal in affected extremity (s) Resp: equal chest rise, non-tachypneic, non-labored breathing Abdomen: Large hernia Skin: no rash, normal Neuro: Sensation: normal on affected extremity (s) MSK: Gait/station/stance: normal reciprocal gait, non antalgic without an assistive device on smooth flat indoor surface. Hip Exam Inspection: No obvious deformity, no redness, swelling, warmth, bruising, abrasion. Alignment normal Palpation: Tender throughout the thigh ROM: Range of motion limited to about 100 of flexion with pain. Internal and external rotation limitedto about 20 each. Strength: Strength 4/5 to quads, 5/5 to hamstrings. 4/5 to hip flexors. Special Tests: Positive logroll KAMERON and FADIR positive straight leg raise Radiology (I have personally reviewed the following films): Lumbar spine x-rays hip x-rays and knee x-rays from 07/07/2024 reviewed. Reveals degenerative changes of the hip, multilevel degenerative degenerative changes of the spine. No acute osseous abnormalities. Agree with Radiology interpretation. Assessment and Plan: ICD-10-CM 1. Lumbar back pain with radiculopathy affecting left lower extremity M54.16 2. Hip pain, left M25.552 3. Primary osteoarthritis of one hip, left M16.12 4. Cauda equina compression (HCC) G83.4 49-year-old male seen today for evaluation of left hip pain. I do believe that some of his pain is coming from left hip osteoarthritis with positive logroll KAMERON and FADIR. However, the more concerning issue is the low back pain and left lower extremity pain with positive red flag symptoms of peroneal numbness and bladder incontinence changes that has been worsening recently. Concern for cauda equina syndrome. Discussed with the patient and his was present today recommendation to proceed to the emergency department at the nearest hospital which is [facility]. Patient verbalized understanding. They will present to the emergency department and follow up with us as needed. The above assessment and plan were discussed at length. All questions were answered, and the patient expressed understanding. Mary Orozco MD Primary Care Sports Medicine [facility] [address] [address] documented in this encounter Nursing Notes * Angela Cruz, Student - 08/10/2024 3:46 PM EST Pt fell out of bed months ago and injured R hip Pt reports that from R hip down to the R knee is numb Pt states pain with walking on certain days Pt states swelling from R knee up to hip Pt reports bladder issues, cannot last long without having to urinate Pt had back surgery in 2012 documented in this encounter Plan of Treatment Upcoming Encounters Date Type Department Care Team (Late st Contact Info) Description 09/12/2024 1:00 PM EST Office Visit Pharmacy, [place] [address] [place] [address] Misha [facility] [address] [place] [address] 09/29/2024 11:00 AM EST Office Visit Hepatology, [address] [phone] Radha Alcocer DO [address] [place] [address] 10/10/2024 9:40 AM EST Office Visit [facility] [address] [place] [address] Britni Gomez PA-C [address] [place] [phone] Scheduled Referrals Name Type Priority Associated Diagnoses Orde r Schedule ORTHOPAEDICS REFERRAL OP Referral Within 30 days (routine) Chronic hip pain, unspecified laterality Ordered: 08/08/2024 Health Maintenance Due Date Last Done Comments [...] as of this encounter Visit Diagnoses Diagnosis Lumbar back pain with radiculopathy affecting left lower extremity- Primary Hip pain, left Pain in joint, pelvic region and thigh Primary osteoarthritis of one hip, left Cauda equina compression (HCC) Cauda equina syndrome without mention of neurogenic bladder documented in this encounter Care Teams Cyber Defense Analyst Relationship Specialty Start Date End Date Britni Gomez PA-C [address] [place] [address] PCP - General Physician Oil Field Equipment Mechanic 05/27/21 documented as of this encounter
[2024-08-11 09:10] LABS: Hep B Surface Ag with confirm Negative (Negative)
[2024-08-11 09:15] LABS: Hep C Ab Rflx HepCQuant RNA Negative (Negative)
[2024-08-11] MEDS: FLUTICASONE/VILANTEROL 100/25MCG 14 PUFFS/INHALER INH SCH (10:06)
[2024-08-11] MEDS: POTASSIUM CHLORIDE CRTAB 20 MEQ TABCR PO SCH (10:06)
[2024-08-11] MEDS: FUROSEMIDE 40 MG/4 ML VIAL IV SCH (10:07)
[2024-08-11] MEDS: LIDOCAINE 5% 1 PATCH TD SCH (10:07)
[2024-08-11] MEDS: METOPROLOL TARTRATE 25 MG TAB PO SCH (10:08)
[2024-08-11] MEDS: ROSUVASTATIN CALCIUM 10 MG TAB PO SCH (10:09)
[2024-08-11] MEDS: lisinopril 5 MG TAB PO SCH (10:09)
[2024-08-11] MEDS: PANTOprazole 40 MG/10 ML SYR IV SCH (10:10)
--- NOTE | 2024-08-11 10:26 | Electrocardiogram Report ---
Test Reason : Blood Pressure : */* mmHG Vent. Rate : 100 BPM Atrial Rate : 100 BPM P-R Int : 120 ms QRS Dur : 100 ms QT Int : 354 ms P-R-T Axes : 37 -41 80 degrees QTcB Int : 456 ms Sinus rhythm with Premature atrial complexes Left atrial enlargement Left axis deviation Poor R wave progression, consider anterior NV vs. lead placement vs. LVH Abnormal ECG When compared with ECG of 06-Dec-2013 12:08, No significant change Confirmed by Connor Solomon ([id number]) on 08/11/2024 10:26:17 AM Referred By: REFERRED SELF Confirmed By: Connor Solomon
--- NOTE | 2024-08-11 10:35 | Gastrointestinal Consultation ---
<Statement entered by Chato Pedro MD - 08/11/24 14:19> Patient seen and examined. Case discussed with Surendra QUEZADA. Since cleared from cardiology standpoint will proceed with EGD. The procedure, alternatives including no work up or treatment, risks and benefits were discussed. Among the risks discussed included cardiorespiratory suppression, aspiration, bleeding, failure to diagnose cancer or other pathology and perforation requiring surgery. In addition we discussed that if specimens are obtained it may be deemed beneficial to send these for genetic/DNA testing. The patient claimed to understand all that was discussed, consented to all and all of his questions were answered. Date of Consultation August 11, 2024 Assessment & Plan (1) Anemia: Plan Patient with new onset anemia with reported dark stools. anemia appears more normocytic in nature. Iron normal. Patient with elevated troponin and to have an echo done. Discussed case with Dr. Pedro who advised on plan. - will await results of echo. If echo is unremarkable, will proceed with EGD to further evaluate. - continue to follow hgb/hct and transfuse as needed. - continue with protonix 40mg IV bid. History of Present Illness Reason for Consultation: UGIB Requesting Physician: Gerry Rizo MD Attending Physician: Vu Ortega MD History of Present Illness Patient is a 49 year old gentleman with a past medical history of chronic low back pain status post laminectomy, who presented the emergency department on 08/10 with chief complaint of chronic back pain with lower extremity numbness. Issues have been ongoing for 8 months. Patient was seeing sports medicine at [facility] and was sent to the ED from there to be evaluated for cauda equina syndrome. Upon evaluation, he was found to have a hgb of 7.6 with an unknown baseline. Patient reports no prior history of anemia. He tells me stools have been darker in nature recently. He uses diclofenac sodium twice daily. He does use omeprazole 40mg bid as outpatient for control of reflux. he has had EGD in 2015 with [facility] showing barretts and colonoscopy in 2013 that was unremarkable per patient. rest of GI ros unremarkable. 08/11 hgb 7.2, mcv 89, platelets 127, INR 1, BUN 13, creatinine 0.91. iron 42. Allergies Allergy/AdvReac Type Severity Reaction Status Date / Time diazepam AdvReac Unknown diaphoretic Verified 12/06/13 11:29 ;confused Home Medications Medication Instructions Recorded Confirmed Type albuterol sulfate 90 mcg/actuation 2 puff inhalation Q4 PRN Cough 08/10/24 08/10/24 History aerosol inhaler diclofenac sodium 75 mg 75 mg PO BID 08/10/24 08/10/24 History tablet,delayed release empagliflozin 25 mg tablet 25 mg PO DAILY 08/10/24 08/10/24 History (Jardiance) furosemide 20 mg tablet 20 mg PO DAILY 08/10/24 08/10/24 History gabapentin 300 mg capsule 300 mg PO QID 08/10/24 08/10/24 History hydrocodone 7.5 mg-acetaminophen 7.5 - 235 tab PO QID 08/10/24 08/10/24 History 325 mg tablet lisinopril 5 mg tablet 5 mg PO DAILY 08/10/24 08/10/24 History lorazepam 0.5 mg tablet 0.5 mg PO HS 08/10/24 08/10/24 History metformin 1,000 mg tablet 1,000 mg PO BID 08/10/24 08/10/24 History mometasone-formoterol HFA 100 1 puff inhalation BID 08/10/24 08/10/24 History mcg-5 mcg/actuation aerosol inhaler (Dulera) montelukast 10 mg tablet 10 mg PO HS 08/10/24 08/10/24 History omeprazole 40 mg capsule,delayed 40 mg PO BID 08/10/24 08/10/24 History release rosuvastatin 10 mg tablet 10 mg PO DAILY 08/10/24 08/10/24 History semaglutide 0.25 mg or 0.5 mg (2 0.25 mg subcut WK 08/10/24 08/10/24 History mg/3 mL) subcutaneous pen injector (Ozempic) tizanidine 4 mg tablet 4 mg PO HS 08/10/24 08/10/24 History trazodone 50 mg tablet 50 mg PO HS 08/10/24 08/10/24 History triamcinolone acetonide 0.1 % 1 applic topical UD 08/10/24 08/10/24 History topical cream Patient History Medical History (Updated 08/10/24 @ 23:06 by Jolie Degroot PA-C) Chronic back pain Morbid obesity Diabetes mellitus, type II GERD (gastroesophageal reflux disease) ELROY (obstructive sleep apnea) HTN (hypertension) HLD (hyperlipidemia) Surgical History (Updated 08/10/24 @ 22:58 by Jolie Degroot PA-C) History of spinal surgery History of esophagogastroduodenoscopy (EGD) History of colonoscopy Family History (Updated 08/10/24 @ 22:58 by Jolie Degroot PA-C) Father Diabetes Social History (Updated 08/10/24 @ 22:59 by Jolie Degroot PA-C) Smoking Status: Current every day smoker Tobacco Type: E-cigarettes / Vaping Second Hand Exposure: No; Do You Dip or Chew Tobacco: No; Tobacco Cessation Education Requested by Patient: No Hx Alcohol Use: Yes Alcohol type: beer Hx Substance Use: Yes Prescribed Medications: Marijuana Last Used Substance: Unknown Preferred Language: Maltese Communication Ability: Effective Broom Bundler Required: No Beliefs That Will Affect Care: None Current Living Situation: Spouse Current Living Situation Comment: in a house Other Information That Helps Us Care for You: No Feels Safe at Home: No Is there a partner from a previous relationship who is making you feel unsafe now?: No Any Concerns about Your Family Situation: No Would You Like to Speak to Someone About Your Situation: No Assistive Devices: Hospital Bed Review of Systems Review of Systems: All systems reviewed & are unremarkable except as noted in HPI & below Physical Exam Constitutional: WD/WN, vitals as above Respiratory: normal respiratory effort, lungs clear to auscultation Cardiovascular: Rate/Rhythm: regular rate and regular rhythm Gastrointestinal (Abdomen): normal bowel sounds, soft, nontender, no hepatosplenomegaly Psychiatric: Orientation: alert and oriented x 3 Affect: euthymic affect Results & Data Vital Signs (Past 12 Hours) Vital Signs Temp Pulse Pulse Resp BP BP Pulse Ox 08/11/24 07:17 97.9 F 79 18 102/59 L 93 08/11/24 02:24 08/11/24 02:24 99 H 08/11/24 02:15 08/11/24 02:15 98.6 F 99 H 18 128/75 95 08/11/24 02:11 98.6 F 99 H 18 128/75 95 08/10/24 23:38 92 H 19 91 08/10/24 22:32 98 H 19 125/91 91 Pulse Ox O2 Del Method O2 Del Method 08/11/24 07:17 Room Air 08/11/24 02:24 95 Room Air 08/11/24 02:24 08/11/24 02:15 Room Air 08/11/24 02:15 Room Air 08/11/24 02:11 Room Air 08/10/24 23:38 Room Air 08/10/24 22:32 Room Air Coding Level of Care Code 61751 INT INP/OBS CARE 255MIN Diagnoses Anemia D64.9
--- NOTE | 2024-08-11 11:54 | Anesthesiology Consultation ---
Date of Service August 11, 2024 Assessment & Plan (1) Encounter for pre-operative examination: Chart Review Chart Review: Acceptable Risk for Surgery, Patient NOT seen in Pre Admission Testing and order entry clerk initiated Consults Requested none Proposed Anesthesia Anesthesia Type: MAC History Surgery Operation Date: 08/11/24 16:45 Proposed Procedures p Esophagogastroduodenoscopy Mayela Pedro MD Height/Weight Height: 5 ft 9 in Weight: 128.8 kg Allergies Allergy/AdvReac Type Severity Reaction Status Date / Time diazepam AdvReac Unknown diaphoretic Verified 12/06/13 11:29 ;confused Medications Home Medications Medication Instructions Recorded Confirmed Last Taken albuterol sulfate 90 mcg/actuation 2 puff inhalation Q4 PRN Cough 08/10/24 08/10/24 Unknown aerosol inhaler diclofenac sodium 75 mg 75 mg PO BID 08/10/24 08/10/24 08/10/24 tablet,delayed release empagliflozin 25 mg tablet 25 mg PO DAILY 08/10/24 08/10/24 08/10/24 (Jardiance) furosemide 20 mg tablet 20 mg PO DAILY 08/10/24 08/10/24 08/10/24 gabapentin 300 mg capsule 300 mg PO QID 08/10/24 08/10/24 08/10/24 hydrocodone 7.5 mg-acetaminophen 7.5 - 235 tab PO QID 08/10/24 08/10/24 08/10/24 325 mg tablet lisinopril 5 mg tablet 5 mg PO DAILY 08/10/24 08/10/24 08/10/24 lorazepam 0.5 mg tablet 0.5 mg PO HS 08/10/24 08/10/24 08/10/24 metformin 1,000 mg tablet 1,000 mg PO BID 08/10/24 08/10/24 08/10/24 mometasone-formoterol HFA 100 1 puff inhalation BID 08/10/24 08/10/24 Unknown mcg-5 mcg/actuation aerosol inhaler (Dulera) montelukast 10 mg tablet 10 mg PO HS 08/10/24 08/10/24 08/10/24 omeprazole 40 mg capsule,delayed 40 mg PO BID 08/10/24 08/10/24 Unknown release rosuvastatin 10 mg tablet 10 mg PO DAILY 08/10/24 08/10/24 08/10/24 semaglutide 0.25 mg or 0.5 mg (2 0.25 mg subcut WK 08/10/24 08/10/24 08/05/24 mg/3 mL) subcutaneous pen injector (Ozempic) tizanidine 4 mg tablet 4 mg PO HS 08/10/24 08/10/24 08/10/24 trazodone 50 mg tablet 50 mg PO HS 08/10/24 08/10/24 08/10/24 triamcinolone acetonide 0.1 % 1 applic topical UD 08/10/24 08/10/24 Unknown topical cream Active Medications Generic Name Dose Route Start Last Admin Trade Name Freq PRN Reason Stop Dose Admin Hydrocodone Bitart/Acetaminophen 1 tab 08/10/24 23:35 08/11/24 10:06 Hydrocodone/Acetaminophen 7.5/325mg Tab PO 08/24/24 23:34 1 tab QID RANDELL Administration Fluticasone/Vilanterol 1 puffs 08/11/24 09:00 08/11/24 10:06 Fluticasone/Vilanterol 100/25mcg 14 Puffs/Inhaler INH 09/10/24 08:59 1 puffs DAILY RANDELL Administration Furosemide 40 mg 08/11/24 09:00 08/11/24 10:07 Furosemide 40 Mg/4 Ml Vial IV 08/11/24 17:01 40 mg BID17 RANDELL Administration Gabapentin 300 mg 08/10/24 21:35 08/11/24 10:08 Gabapentin 300 Mg Cap PO 09/09/24 21:34 300 mg QID RANDELL Administration Ceftriaxone Sodium 2,000 mg in 50 mls @ 100 mls/hr 08/10/24 22:00 08/10/24 23:34 Rocephin IV 08/20/24 21:59 Infused Q24H RANDELL Infusion Pantoprazole Sodium 40 mg in 10 mls @ 5 mls/min 08/11/24 09:00 08/11/24 10:10 Protonix IV 09/10/24 08:59 5 mls/min BID RANDELL Administration Insulin Aspart 0 units 08/11/24 08:03 08/11/24 11:51 Insulin Aspart Per Unit Charge SC 09/10/24 02:23 Not Given Q6 RANDELL Lidocaine 1 patch 08/11/24 09:00 08/11/24 10:07 Lidocaine 5% 1 Patch TD 09/10/24 08:59 1 patch QAM RANDELL Administration Lisinopril 5 mg 08/11/24 09:00 08/11/24 10:09 Lisinopril 5 Mg Tab PO 09/10/24 08:59 5 mg DAILY RANDELL Administration Lorazepam 0.5 mg 08/10/24 21:30 08/10/24 22:32 Lorazepam 0.5 Mg Tab PO 09/09/24 21:34 0.5 mg HS PRN Administration insomnia Metoprolol Tartrate 12.5 mg 08/11/24 09:00 08/11/24 10:08 Metoprolol Tartrate 25 Mg Tab PO 09/10/24 08:59 12.5 mg BID RANDELL Administration Montelukast Sodium 10 mg 08/10/24 21:35 08/10/24 22:01 Montelukast Sodium 10 Mg Tablet PO 09/09/24 21:34 10 mg HS RANDELL Administration Oxycodone HCl 5 - 10 mg 08/10/24 21:32 08/11/24 06:53 Oxycodone Hcl Ir 5 Mg Tab (Immediate Release) PO 08/24/24 21:31 10 mg QID PRN Administration Pain Potassium Chloride 20 meq 08/11/24 09:00 08/11/24 10:06 Potassium Chloride Crtab 20 Meq Tabcr PO 09/10/24 08:59 20 meq BID RANDELL Administration Rosuvastatin Calcium 10 mg 08/11/24 09:00 08/11/24 10:09 Rosuvastatin Calcium 10 Mg Tab PO 09/10/24 08:59 10 mg DAILY RANDELL Administration Tizanidine HCl 4 mg 08/10/24 23:35 08/11/24 04:42 Tizanidine Hcl 4 Mg Tablet PO 09/09/24 23:34 4 mg HS RANDELL Administration Trazodone HCl 50 mg 08/10/24 21:35 08/10/24 22:01 Trazodone Hcl 50 Mg Tab PO 09/09/24 21:34 50 mg HS RANDELL Administration Past Medical History Medical History Chronic back pain Morbid obesity Diabetes mellitus, type II GERD (gastroesophageal reflux disease) ELROY (obstructive sleep apnea) HTN (hypertension) HLD (hyperlipidemia) Past Family History Family History Father Diabetes Past Surgical History Surgical History History of spinal surgery History of esophagogastroduodenoscopy (EGD) History of colonoscopy Social History Smoking Status: Current every day smoker Do You Dip or Chew Tobacco: No Hx Alcohol Use: Yes Alcohol type: beer alcohol intake frequency: a few times a week Hx Substance Use: Yes substance use type: marijuana Last Used Substance: Unknown Physical Exam Vital Signs Last Vital Signs Temp 36.6 C 08/11/24 11:36 Pulse 88 08/11/24 11:36 Resp 18 08/11/24 11:36 BP 106/65 08/11/24 11:36 Pulse Ox 90 08/11/24 11:36 O2 Del Method Room Air 08/11/24 11:36 O2 Flow Rate 2 08/10/24 20:15 Testing Laboratory Results 08/11/24 05:56 08/11/24 05:56 PT 10.9 Seconds (9.0-12.0) 08/10/24 22:55 INR 1.0 (0.9-1.1) 08/10/24 22:55 Urine Color Yellow 08/10/24 18:15 Urine Appearance Clear (Clear) 08/10/24 18:15 Urine pH 6.0 (4.5-7.5) 08/10/24 18:15 Ur Specific [place] 1.016 (1.000-1.030) 08/10/24 18:15 Urine Protein 1+ (Negative) H 08/10/24 18:15 Urine Glucose (UA) 3+ (Negative) H 08/10/24 18:15 Urine Ketones Negative (Negative) 08/10/24 18:15 Urine Nitrite Negative (Negative) 08/10/24 18:15 Ur Leukocyte Esterase Negative (Negative) 08/10/24 18:15 Urine WBC (Auto) 0-5 /hpf (0-5) 08/10/24 18:15 Urine RBC (Auto) 0-2 /hpf (0-2) 08/10/24 18:15 U Hyaline Cast (Auto) 0-2 /lpf (0-2) 08/10/24 18:15 U Epithel Cells (Auto) 0-2 /hpf (0-2) 08/10/24 18:15 Urine Bacteria (Auto) None Seen (None Seen) 08/10/24 18:15 Blood Type O Negative 08/10/24 22:55 Antibody Screen NEGATIVE 08/10/24 22:55 08/11/24 08/11/24 08/11/24 11:39 07:21 02:37 POC Glucose 122 H 163 H 139 H Electrocardiogram Date: 08/10/24 Findings: + NSR @ (100; with PACs) and + pertinent finding (left axis deviation) Chest X-Ray Date: 08/10/24 TECHNIQUE: Frontal view of the chest. COMPARISON: 12/06/13 FINDINGS: Lungs: Pulmonary vascular congestion. No airspace consolidation. Linear atelectasis at the lung bases. Pleural space: Unremarkable. No pleural effusion or pneumothorax. Heart: Unremarkable. No cardiomegaly or pulmonary vascular congestion. Bones/joints: No acute fracture. No dislocation. IMPRESSION: Pulmonary vascular congestion. No airspace consolidation. Echocardiogram Date: 08/11/24 EF: 60-65 LV Function: normal RWMA: + none Other Findings: + LVH (mild)
--- NOTE | 2024-08-11 13:33 | Hospitalist Progress Note ---
Date of Service August 11, 2024 Assessment & Plan (1) Symptomatic anemia: (2) Chronic back pain: (3) Diabetes mellitus, type II: (4) HTN (hypertension): (5) HLD (hyperlipidemia): (6) GERD (gastroesophageal reflux disease): (7) ELROY (obstructive sleep apnea): (8) Morbid obesity: Plan Patient is a 49-year-old male with past medical history of GERD, hypertension, hyperlipidemia, type 2 diabetes, anxiety presented to the ED with back pain and lower extremity numbness. Patient underwent MRI of lumbar spine which showed mild bilateral foraminal narrowing; no significant central canal narrowing, no acute osseous findings. He was found to have hemoglobin of 7.6 and was referred for admission. Anemia Presented with hemoglobin of 7.6; last hemoglobin was 13.1 in October 2021. 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 Last colonoscopy in 2013 showed normal-appearing colon. Reported history of MAFLD and signs of portal hypertension in CT abdomen in past. Peripheral blood smear evaluation was done; no overt morphological abnormality. LDH within normal limits Patient to undergo endoscopy by GI today. Continue IV PPI, IV ceftriaxone Further workup of anemia depending on endoscopy result Possible acute on chronic HFpEF History of MAFLD cirrhosis Patient reports bilateral lower extremity swelling and abdominal distention Echocardiogram shows EF of 60 to 65% Started on Lasix 40 mg IV twice daily; will add spironolactone 50 mg once a day Lumbar radiculopathy MRI of lumbar spine did not show any acute findings PT OT eval Pain control Type 2 diabetes mellitus Started on insulin Hold off oral agents DVT prophylaxis SCDs Full code Time spent evaluating patient, direct bedside care, chart review, placing orders, interpretation of diagnostic studies, discussion with consultants, patient, and family members, as well as other required patient management activities is 50 minutes Please note the above document was generated using voice recognition software. It may contain grammatical, syntax or spelling errors. Any formal questions or concerns about the content, text or information contained within the body of this dictation should be directly addressed to the provider for clarification Admission and Anticipated Discharge Date Admission Date: August 10, 2024 Subjective Patient seen and examined at bedside. He is lying on the recliner; reports being comfortable. He reports of lower back pain. No significant events overnight Review of Systems Review of Systems: All systems reviewed & are unremarkable except as noted in Subjective Physical Exam Physical Exam: Constitutional: Alert oriented x 3; not in distress. Respiratory: Bilateral vesicular breath sound Cardiovascular: RRR, no murmur, no edema Vessels: no JVD or carotid bruit Chest: normal inspection of chest Abdomen: normal bowel sounds, soft, nontender, no hepatosplenomegaly Musculoskeletal: +healed surgical scar lower lumbar region. Skin: no rashes, warm and dry normal turgor Neurologic: PERRL, EOMI, accommodation nl, no face palsy, no dysarthria CN's II- XI intact bilaterally and moves all extremities Results & Data Results & Data Vital Signs (Past 12 Hours) Vital Signs Temp Pulse Pulse Resp BP BP Pulse Ox 08/11/24 13:18 36.8 C 85 18 134/73 93 08/11/24 11:36 36.6 C 88 18 106/65 90 08/11/24 08:00 08/11/24 07:17 36.6 C 79 18 102/59 L 93 08/11/24 02:24 08/11/24 02:24 99 H 08/11/24 02:15 08/11/24 02:15 37 C 99 H 18 128/75 95 08/11/24 02:11 37.0 C 99 H 18 128/75 95 Pulse Ox O2 Del Method O2 Del Method 08/11/24 13:18 Room Air 08/11/24 11:36 Room Air 08/11/24 08:00 Room Air 08/11/24 07:17 Room Air 08/11/24 02:24 95 Room Air 08/11/24 02:24 08/11/24 02:15 Room Air 08/11/24 02:15 Room Air 08/11/24 02:11 Room Air
--- NOTE | 2024-08-11 15:03 | GI REPORT ---
[facility] Patient: YAKELIN HADLEY : 1975 Sex at : Male Age: 49 Years Procedure: Upper GI endoscopy Date: 08/11/2024 Attending Physician: Chato Pedro MD Referring MD: Vu Ortega Md Indications: - Melena Medications: - Monitored Anesthesia Care Complications: - No immediate complications. Estimated Blood Loss: - Estimated blood loss was minimal. Procedure: - ASA Grade Assessment: III - A patient with severe systemic disease. - The egd scope was introduced through the mouth and advanced to the second part of the duodenum. - The upper GI endoscopy was performed with moderate difficulty. - The patient tolerated the procedure well. Findings: - The examined esophagus was normal. - Multiple large pedunculated polyps with no bleeding and stigmata of recent bleeding were found in the gastric body. Base of 4 largest polyps injected with epinephrine. 3 were removed via hot snare and then the entire area had hemostatic spray applied - The examined duodenum was normal. Impression: - Normal esophagus. - Multiple gastric polyps. - Base of 4 largest polyps injected with epinephrine. 3 were removed via hot snare and then the entire area had hemostatic spray applied - Normal examined duodenum. - No specimens collected. Recommendation: - Await pathology results. 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 Procedure Code(s): - 81336, Esophagogastroduodenoscopy, flexible, transoral; diagnostic, including collection of specimen(s) by brushing or washing, when performed (separate procedure) Diagnosis Code(s): - K92.1, Melena (includes Hematochezia) - K31.7, Polyp of stomach and duodenum CPT(R) - 2023 copyright [employer]. All Rights Reserved. The CPT codes, CCI edits and ICD codes generated are intended as suggestions and were generated based on input data. These codes are preliminary and upon top trimmer review may be revised to meet current compliance and payer requirements. The provider is responsible for the final determination of appropriate codes, and modifiers. Chato Pedro MD This document has been electronically signed. Note Initiated:08/11/2024 Note Completed:08/11/2024 3:02 PM [id number]
--- NOTE | 2024-08-11 15:07 | Communication Note ---
Date of Service: August 11, 2024 POST PROCEDURE NOTE See Provation note for complete report. Summary: Multiple ulcerated gastric polyps of body with clot and hematin but no active bleeding. 4 of the largest polyps were injected with epinephrine. 3 of those 4 were able to be removed via hot snare for pathology The gastric body was then coated with hemostatic spray. Assessment/Recommendations: Ulcerated gastric polyps with recent bleeding treated endoscopically with epinephrine and hemostatic spray. I would not be surprised if these were benign polyps and just ulcerated. However, this area is diffuse and if he rebleeds despite hemostatic spray - may need IR or surgery. NPO tonight given hemostatic spray Continue to trend Hgb and transfuse prn PPI
--- NOTE | 2024-08-11 15:57 | Anesthesiology Progress Note ---
Date of Service August 11, 2024 Anesthesia Post Procedure Vital Signs Vital Signs: Temp Pulse Pulse Resp BP BP BP 08/11/24 15:31 83 20 116/69 08/11/24 15:16 92 H 16 108/56 L 08/11/24 15:01 98 H 16 105/50 L 08/11/24 13:18 36.8 C 85 18 134/73 08/11/24 11:36 36.6 C 88 18 106/65 08/11/24 08:00 08/11/24 07:17 36.6 C 79 18 102/59 L 08/11/24 02:24 08/11/24 02:24 99 H 08/11/24 02:15 08/11/24 02:15 37 C 99 H 18 128/75 08/11/24 02:11 37.0 C 99 H 18 128/75 08/10/24 23:38 92 H 19 08/10/24 22:32 98 H 19 125/91 08/10/24 20:15 93 H 16 109/75 08/10/24 19:44 101 H 19 08/10/24 16:42 37.1 C 101 H 20 131/62 Pulse Ox Pulse Ox O2 Del Method O2 Del Method O2 Flow Rate 08/11/24 15:31 94 Room Air 08/11/24 15:16 93 Room Air 08/11/24 15:01 92 Room Air 08/11/24 13:18 93 Room Air 08/11/24 11:36 90 Room Air 08/11/24 08:00 Room Air 08/11/24 07:17 93 Room Air 08/11/24 02:24 95 Room Air 08/11/24 02:24 08/11/24 02:15 Room Air 08/11/24 02:15 95 Room Air 08/11/24 02:11 95 Room Air 08/10/24 23:38 91 Room Air 08/10/24 22:32 91 Room Air 08/10/24 20:15 92 Nasal Cannula 2 08/10/24 19:44 92 Room Air 08/10/24 16:42 97 Pain Intensity Left Hip: Pain Intensity: 8 Transfer of Care Handoff Completed per policy Notes Mental Status: alert / awake / arousable and participated in evaluation Patient Amnestic to Procedure: Yes Nausea / Vomiting: adequately controlled Pain: adequately controlled Airway Patency, RR, SpO2: stable & adequate BP & HR: stable & adequate Hydration State: stable & adequate Anesthetic Complications: no major complications apparent and Pt Satisfied with anesthetic care
[2024-08-11] MEDS: LIDOCAINE 2% 2 ML VIAL/AMP(20MG/ML) INFIL ONE ×2 (17:22)
[2024-08-11] MEDS: GLYCOPYRROLATE 0.2 MG/ML VIAL ONE (17:22)
[2024-08-11] MEDS: ONDANSETRON INJ 2 MG/ML 2 ML VIAL ONE (17:22)
[2024-08-11] MEDS: PROPOFOL IV EMULSION 10 MG/ML 20 ML VIAL IV ONE ×3 (17:23)
[2024-08-11] MEDS: LACTATED RINGER'S 1,000 ML IV SCH (17:49)
[2024-08-11 21:47] LABS: Basophils # (auto) 0.08 K/uL (0.00-0.20); Basophils % (auto) 1.3 %; Eosinophils # (auto) 0.36 K/uL (0.00-0.50); Eosinophils % (auto) 5.7 %; Hematocrit (blood only) 26.7 % (42.0-52.0); Hemoglobin 7.9 g/dl (14.0-18.0); Immature Granulocytes # (auto) 0.02 K/uL (0.01-0.20); Immature Granulocytes % (auto) 0.3 %; Lymphocytes % (auto) 17.4 %; Mean Corpuscular Hemoglobin 25.8 pg (25.0-34.0); Mean Corpuscular Hgb Conc 29.6 g/dL (32.0-36.0); Mean Corpuscular Volume 87.3 fL (80.0-100.0); Mean Platelet Volume 10.2 fL (9.4-12.4); Monocytes # (auto) 0.64 K/uL (0.11-0.59); Monocytes % (auto) 10.1 %; Neutrophils # (auto) 4.11 K/uL (1.40-6.50); Neutrophils % (auto) 65.2 %; Platelet Count 140 K/uL (130-400); RDW Coefficient of Variation 20.3 % (11.5-14.5); RDW Standard Deviation 63.7 fL (36.4-46.3); Red Blood Count 3.06 M/uL (4.70-6.10); White Blood Count 6.31 K/ul (4.8-10.8)
[2024-08-11 22:19] LABS: Stomatocytes 2+; Target Cells 1+
[2024-08-12] MEDS: ACETAMINOPHEN 325 MG TAB PO PRN (00:22)
[2024-08-12 06:08] LABS: Basophils # (auto) 0.06 K/uL (0.00-0.20); Basophils % (auto) 0.8 %; Eosinophils % (auto) 5.3 %; Hematocrit (blood only) 24.5 % (42.0-52.0); Hemoglobin 7.3 g/dl (14.0-18.0); Immature Granulocytes # (auto) 0.02 K/uL (0.01-0.20); Immature Granulocytes % (auto) 0.3 %; Lymphocytes % (auto) 14.7 %; Mean Corpuscular Hgb Conc 29.8 g/dL (32.0-36.0); Mean Corpuscular Volume 87.2 fL (80.0-100.0); Mean Platelet Volume 10.3 fL (9.4-12.4); Monocytes % (auto) 14.7 %; Neutrophils # (auto) 4.82 K/uL (1.40-6.50); Neutrophils % (auto) 64.2 %; Platelet Count 140 K/uL (130-400); RDW Coefficient of Variation 20.3 % (11.5-14.5); RDW Standard Deviation 64.2 fL (36.4-46.3); Red Blood Count 2.81 M/uL (4.70-6.10)
[2024-08-12 06:51] LABS: Anisocytosis Present; Polychromasia 1+; Stomatocytes 1+
--- NOTE | 2024-08-12 10:08 | Gastroenterology Progress Note ---
<Statement entered by Chato Pedro MD - 08/12/24 17:08> Patient seen and examined. Case discussed with Surendra QUEZADA. Patient doing well. Pathology pending. Continue supportive care and if bleeds acutely consider surgery or IR. Dr. Michelle takes over service tonight. Date of Service August 12, 2024 Assessment & Plan (1) Anemia: Plan Patient feeling well. - await pathology from the EGD. - continue with protonix 40mg bid. - avoid nsaids. - continue to follow hgb/hct. transfuse as needed. - if any he rebleeds, may need transfer for IR or surgery. - can see how he does with advancing diet. - he would likely benefit from starting iron (oral vs IV) Admission and Anticipated Discharge Date Admission Date: August 10, 2024 Subjective patient tells me he feels somewhat better today. he is getting ready to eat breakfast, but has not had it as of yet. hgb did fall to 7.3 from 7.9 but he is not noticing any blood loss through stool. rest of GI ros unremarkable. EGD 08/11 - Normal esophagus. - Multiple gastric polyps. - Base of 4 largest polyps injected with epinephrine. 3 were removed via hot snare and then the entire area had hemostatic spray applied - Normal examined duodenum. Review of Systems Review of Systems: All systems reviewed & are unremarkable except as noted in HPI & below Physical Exam Constitutional: WD/WN, vitals as above Respiratory: normal respiratory effort, lungs clear to auscultation Cardiovascular: Rate/Rhythm: regular rate and regular rhythm Gastrointestinal (Abdomen): normal bowel sounds, soft, nontender, no hepatosplenomegaly Psychiatric: Orientation: alert and oriented x 3 Affect: euthymic affect Results & Data Results & Data Vital Signs (Past 12 Hours) Vital Signs Temp Pulse Pulse Resp BP BP Pulse Ox 08/12/24 08:39 98.6 F 62 19 110/62 92 08/12/24 04:55 08/12/24 04:51 92 08/12/24 03:44 98.1 F 82 18 96/60 L 76 L 08/12/24 02:24 08/12/24 01:37 77 83/46 L 94/51 L 08/12/24 01:22 93 H 08/12/24 00:30 78/39 L 74/38 L 08/12/24 00:00 08/11/24 23:19 81/46 L 83/44 L 08/11/24 22:49 98.4 F 81 18 91 O2 Del Method O2 Del Method O2 Flow Rate O2 Flow Rate 08/12/24 08:39 Room Air 08/12/24 04:55 Oxymask 4 08/12/24 04:51 Oxymask 4 08/12/24 03:44 Room Air 08/12/24 02:24 Room Air 08/12/24 01:37 08/12/24 01:22 08/12/24 00:30 08/12/24 00:00 Room Air 08/11/24 23:19 08/11/24 22:49 Room Air Coding Level of Care Code 03423 SUB INP/OBS CARE 10/29MIN Diagnoses Anemia D64.9
--- NOTE | 2024-08-12 11:45 | Cardiology Progress Note ---
Date of Service August 12, 2024 Assessment & Plan (1) Symptomatic anemia: (2) Elevated LFTs: (3) HTN (hypertension): (4) HLD (hyperlipidemia): Plan Assessment: 49 year old male admitted for symptomatic anemia with concerns of acute volume overload. Cardiology requested for assessment and further recommendations. Plan: 1. Symptomatic anemia: 2. Elevated LFTs -Presented with weakness, and H/H 7.2/24.3. GI on consult and plan is to move forward with Transfusion of PRBCs and undergo a endoscopy for further evaluation. -Patient demonstrates some increased swelling of the lower extremities, abdomen is soft and non-tender, larger body habitus. Patient states he has low ETOH consumption, H&P suggest 5 beers per day. -Echocardiogram demonstrates Normal LVEF, no wall motion abnormalities and no significant valvular disease, he is ok to pursue further GI evaluation. -Elevated LFTs, patient denies any known history of liver disease. Abdominal ultrasound is demonstrating Hepatosplenomegaly, but no ascities. Hepatitis panel pending. -Continue Furosemide 40mg IV BID with potassium supplementation. -Recommend daily weights with a standing scale. Close monitoring of renal function and serum electrolytes. Goal serum K> 4.0 and serum Mag 2.0. Strict I&O. -Continued management per GI and primary team 2. Hypertension: -Patient denies history of HTN; however, home medication regimen suggest anti-hypertensive therapies. --Continue Lisinopril 5mg PO QD, and metoprolol tartrate 12.5mg BID -Furosemide as noted above 3. HLD: -Continue Crestor -Recommend [facility] lipid panel 08/12/2024: -patient is doing well from a cardiac perspective. Echocardiogram as noted above does not suggest heart failure. Normal LVEF, no wall motion abnormalities and no significant valvular disese -Does not demonstrate significant volume overload on today's exam. -Elevated LFTs as mentioned yesterday, spouse does make mention that there has been discussion about "altered" liver function in the past and mentioned portal hypertension which seems to be consistent with patient's presentation. Continued management per GI. Hepatitis panel pending. -Cardiology will sign off at this time, please contact with any new questions or concerns. -Continued management per GI and Primary team. Case has been discussed with Dr. Baptiste. Further recommendations regarding plan of care as per his assessment. I spent a total of 30 minutes on the date of service in preparation, delivery, documentation of the care provided to the patient excluding any time spent in the performance of separately billed services. SAMUEL Walton [facility] Admission and Anticipated Discharge Date Admission Date: August 10, 2024 Supervising Physician Co-Signing Physician Notes I have personally performed a history and physical examination on the patient. I have reviewed the advance practitioner's documentation, and I agree with, and take responsibility for the plan of care. 49-year-old male presented to the emergency department secondary to worsening lower back pain. Severe anemia (Hgb 7.2g/dl) noted on admission. Reports occasional dark-colored stools. Denies hematochezia or melena. Abdominal ultrasound noting hepatosplenomegaly. CT of the abdomen pelvis performed 2021 with report of hepatic cirrhosis, splenomegaly, and portal hypertension. EGD performed 08/11/2024 demonstrating multiple gastric polyps with stigmata of recent bleeding. Base of 4 largest polyps were injected with epinephrine and 3 were removed with hot snare. Cardiology consultation requested due to to CHF, however, echocardiogram reveals preserved LV systolic function and normal diastolic function. Lower extremity edema and abdominal bloating related to patient's cirrhosis and portal hypertension. Recommendations: * Consider addition of spironolactone. * Continue furosemide as ordered. * Management of symptomatic anemia as per internal medicine. * Monitor H/H * No further cardiac testing recommended. * Cardiology will sign off. Please call with additional concerns/questions. I spent a total of 30 minutes on the date of service in preparation, delivery, and documentation of the care provided to this patient, excluding any time spent in the performance of separately billed services. Terry Baptiste DO [facility] Subjective 08/12/2024: Patient seen and examined in follow up today. Feeling well from a cardiac perspective. offers no concerns. currently out of bed, started on clear liquids and visiting with family Labs, vitals, diagnostics, telemetry and documentation reviewed. Telemetry reviewed showing SR with PAC's. Rates 90-100bpm. No acute events overnight. Review of Systems Review of Systems: All systems reviewed & are unremarkable except as noted in HPI & below Physical Exam Constitutional: well developed, well nourished and + overweight; no acute distress and not ill appearing Neck: normal visual inspection and trachea midline Respiratory: normal respiratory effort; no respiratory distress, no labored breathing and no cough Auscultation: + diminished lung sounds (bilateral bases ) and + wheezes; no crackles, no rales and no rhonchi Cardiovascular: Rate/Rhythm: regular rate and regular rhythm Heart Sounds: normal S1 and normal S2; no murmur Vessels: + JVD (difficult to assess ) Skin: no rashes, warm and dry Psychiatric: A+Ox3, euthymic affect Results & Data Vital Signs (Past 12 Hours) Vital Signs Temp Pulse Pulse Resp BP BP Pulse Ox 08/12/24 11:18 36.7 C 120 H 18 101/60 91 08/12/24 08:39 37.0 C 62 19 110/62 92 08/12/24 04:55 08/12/24 04:51 92 08/12/24 03:44 36.7 C 82 18 96/60 L 76 L 08/12/24 02:24 08/12/24 01:37 77 83/46 L 94/51 L 08/12/24 01:22 93 H 08/12/24 00:30 78/39 L 74/38 L 08/12/24 00:00 O2 Del Method O2 Del Method O2 Flow Rate O2 Flow Rate 08/12/24 11:18 Room Air 08/12/24 08:39 Room Air 08/12/24 04:55 Oxymask 4 08/12/24 04:51 Oxymask 4 08/12/24 03:44 Room Air 08/12/24 02:24 Room Air 08/12/24 01:37 08/12/24 01:22 08/12/24 00:30 08/12/24 00:00 Room Air Laboratory Results CBC 08/11/24 08/12/24 Range/Units 20:43 05:26 WBC 6.31 7.50 (4.8-10.8) K/ul RBC 3.06 L 2.81 L (4.70-6.10) M/uL Hgb 7.9 L 7.3 L (14.0-18.0) g/dl Hct 26.7 L 24.5 L (42.0-52.0) % Plt Count 140 140 (130-400) K/uL Neut # (Auto) 4.11 4.82 (1.40-6.50) K/uL Lymph # (Auto) 1.10 L 1.10 L (1.20-3.40) K/uL [place] # (Auto) 0.64 H 1.10 H (0.11-0.59) K/uL Eos # (Auto) 0.36 0.40 (0.00-0.50) K/uL Baso # (Auto) 0.08 0.06 (0.00-0.20) K/uL Intake and Output 08/11/24 08/12/24 08/12/24 22:59 06:59 14:59 Intake Total 1450 / 1450 Balance 1450 / 750 Intake: IV 1150 / 1150 Albumin 25% 25 gm In 100 ml @ 100 / 100 50 mls/hr IV ONE ONE Rx#: [id number] Lactated Ringer's 1,000 ml @ 80 1000 / 1000 mls/hr IV .[id number] [facility] Rx#: [id number] cefTRIAXone SODIUM 2,000 mg In 50 / 50 50 ml @ 100 mls/hr IV Q24H [facility] Rx#:[id number] Oral 300 / 300 Other: Other Intake Source NPO # Unmeasured Voids 1 2 Weight 122.4 kg Weight Measurement Method Standing Scale
[2024-08-12] MEDS: IRON SUCROSE 300 MG in SODIUM CHLORIDE 0.9% 250 ML IV ONE (11:58)
[2024-08-12] MEDS: FUROSEMIDE 20 MG TAB PO SCH (12:53)
--- NOTE | 2024-08-12 13:49 | Hospitalist Progress Note ---
Date of Service August 12, 2024 Assessment & Plan (1) Symptomatic anemia: (2) Chronic back pain: (3) Diabetes mellitus, type II: (4) HTN (hypertension): (5) HLD (hyperlipidemia): (6) GERD (gastroesophageal reflux disease): (7) ELROY (obstructive sleep apnea): (8) Morbid obesity: Plan Patient is a 49-year-old male with past medical history of GERD, hypertension, hyperlipidemia, type 2 diabetes, anxiety presented to the ED with back pain and lower extremity numbness. Patient underwent MRI of lumbar spine which showed mild bilateral foraminal narrowing; no significant central canal narrowing, no acute osseous findings. He was found to have hemoglobin of 7.6 and was referred for admission. Iron Deficiency Anemia Gastric polyps Presented with hemoglobin of 7.6; last hemoglobin was 13.1 in October 2021. 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 Last colonoscopy in 2013 showed normal-appearing colon. Reported history of MAFLD and signs of portal hypertension in CT abdomen in past. Peripheral blood smear evaluation was done; no overt morphological abnormality. LDH within normal limits Patient underwent EGD on 08/11; found to have multiple large pedunculated polyps with no bleeding and is stigmata of recent bleeding were found in the gastric body. Base of the 4 largest polyp injected with epinephrine; 3 were removed by hot snare and entire area had hemostatic spray applied. Continue on Protonix twice daily Started on clear liquid diet Started on IV iron Possible acute on chronic HFpEF History of MAFLD cirrhosis Patient reports bilateral lower extremity swelling and abdominal distention Echocardiogram shows EF of 60 to 65% Started on Lasix 20 mg once a day along with spironolactone 50 mg once a day Lumbar radiculopathy MRI of lumbar spine did not show any acute findings PT OT eval Pain control Type 2 diabetes mellitus Started on insulin Hold off oral agents DVT prophylaxis SCDs Full code Time spent evaluating patient, direct bedside care, chart review, placing orders, interpretation of diagnostic studies, discussion with consultants, patient, and family members, as well as other required patient management activities is 50 minutes Please note the above document was generated using voice recognition software. It may contain grammatical, syntax or spelling errors. Any formal questions or concerns about the content, text or information contained within the body of this dictation should be directly addressed to the provider for clarification Admission and Anticipated Discharge Date Admission Date: August 10, 2024 Subjective Patient seen and examined at bedside. He reports that he is feeling much better compared to yesterday Denies any abdominal pain or discomfort. No bowel movement yet Overnight, he was hypotensive requiring IV fluid boluses Review of Systems Review of Systems: All systems reviewed & are unremarkable except as noted in Subjective Physical Exam Physical Exam: Constitutional: Alert oriented x 3; not in distress. Respiratory: Bilateral vesicular breath sound Cardiovascular: RRR, no murmur, no edema Vessels: no JVD or carotid bruit Chest: normal inspection of chest Abdomen: normal bowel sounds, soft, nontender, no hepatosplenomegaly Musculoskeletal: +healed surgical scar lower lumbar region. Skin: no rashes, warm and dry normal turgor Neurologic: PERRL, EOMI, accommodation nl, no face palsy, no dysarthria CN's II- XI intact bilaterally and moves all extremities Results & Data Results & Data Vital Signs (Past 12 Hours) Vital Signs Temp Pulse Resp BP BP Pulse Ox O2 Del Method 08/12/24 11:18 36.7 C 120 H 18 101/60 91 Room Air 08/12/24 08:39 37.0 C 62 19 110/62 92 Room Air 08/12/24 04:55 08/12/24 04:51 92 Oxymask 08/12/24 03:44 36.7 C 82 18 96/60 L 76 L Room Air 08/12/24 02:24 O2 Del Method O2 Flow Rate O2 Flow Rate 08/12/24 11:18 08/12/24 08:39 08/12/24 04:55 Oxymask 4 08/12/24 04:51 4 08/12/24 03:44 08/12/24 02:24 Room Air
[2024-08-12 14:07] LABS: Hepatitis A Antibody IgM NON-REACTIVE (NON-REACTIVE); Hepatitis B Core Antibody IgM NON-REACTIVE (NON-REACTIVE)
[2024-08-12] MEDS ORDERED: Nursing to Pharmacy Communication SCH (22:00)
[2024-08-12] MEDS: INSULIN ASPART PER UNIT CHARGE SC SCH (22:25)
[2024-08-12] MEDS: NALOXONE HCL 0.4 MG/1 ML VIAL/CARP IV STA (22:47)
[2024-08-12] MEDS: ALBUMIN 25% 25 GM/100 ML VIAL IV ONE (22:52)
--- NOTE | 2024-08-12 23:13 | Communication Note ---
Date of Service: August 12, [id number] Patient noted to be unresponsive and diaphoretic while on recliner chair as per RN. BP55/30,HR60,96% on the mask,Blood sugar 143. Trazodone, tizanidine, Vicodin, and gabapentin all administered at 9 PM. Patient denies headache, chest pain, SOB. PPE Obese Lethargic Serum creatinine 1.74 from 0.9 in a.m. pH 7.28, pCO2 65 AP Encephalopathy Multifactorial ARF, hypotension [patient currently on multiple BP medications (beta-odin, lisinopril, spironolactone, Lasix) relative to highest SBP of 140s since admission) Polypharmacy contributory Respiratory acidosis, history ELROY, CPAP noncompliance Narcan 1 dose Monitor creatinine response to IV albumin given CHF Hold lisinopril, spironolactone, and Lasix for now Midodrine if with persistent hypotension BiPAP, recheck [facility] Pharmacy requested to stagger p.m. medications following schedule with appropriate hold for sedation/confusion parameters. 8 PM trazodone, tizanidine 9 PM gabapentin, Vicodin
[2024-08-13] MEDS: MIDODRINE HCL 2.5 MG TAB PO STA ×2 (00:12→03:49)
[2024-08-13 00:19] LABS: HCO3 VBG 31 mmol/L; Oxygen Saturation VBG < 60.0 %; PCO2 VBG 65 mmHg (38-50); PO2 VBG < 20 mmHg; pH VBG 7.28 (7.36-7.41)
[2024-08-13] MEDS: ALBUMIN 25% 25 GM/100 ML VIAL IV ONE (00:53)
[2024-08-13 01:21] LABS: Hematocrit (blood only) 28.4 % (42.0-52.0); Hemoglobin 8.1 g/dl (14.0-18.0)
[2024-08-13 01:43] LABS: BUN Creatinine Ratio 10.9 (10-20); Calcium 9.5 mg/dl (8.6-10.3); Creatinine Clr Calc Pharmacy 66.4 ml/min; Potassium 3.9 mmol/L (3.5-5.1)
[2024-08-13 05:09] LABS: Base Excess VBG 6.2 mEq/L; HCO3 VBG 31 mmol/L; PCO2 VBG 42 mmHg (38-50); PO2 VBG 134 mmHg; pH VBG 7.47 (7.36-7.41)
--- NOTE | 2024-08-13 05:18 | XRay Report ---
EXAM: XR chest 1V portable CLINICAL HISTORY: INPATIENT TECHNIQUE: X-ray of the chest was done in AP view. COMPARISON: None. FINDINGS: Right lower lung zone infiltrates, likely pneumonic consolidation, please correlate clinically. Left lower lung zone, atelectatic bands. The cardiac size is normal. Clear costophrenic angles. Normal mediastinal contour. Clear both hilar shadows. IMPRESSION: Right lower lung zone infiltrates, pneumonic consolidation? please correlate clinically. [facility] was called at [phone] at 4:12 AM [employer] on 08/13/2024, and Milo (nurse) was informed regarding the presence of Important Medical Findings in the report. Electronically signed by Durga Vallejo 08-13-2024 05:18 AM
[2024-08-13] MEDS ORDERED: MIDODRINE HCL 2.5 MG TAB PO SCH (08:00)
[2024-08-13] MEDS: LACTATED RINGER'S 500 ML IV ONE (08:18)
[2024-08-13] MEDS ORDERED: SPIRONOLACTONE 25 MG TAB PO SCH (09:00)
[2024-08-13 09:40] LABS: Hematocrit (blood only) 25.8 % (42.0-52.0); Hemoglobin 7.5 g/dl (14.0-18.0); Mean Corpuscular Hemoglobin 26.2 pg (25.0-34.0); Mean Corpuscular Hgb Conc 29.1 g/dL (32.0-36.0); Mean Corpuscular Volume 90.2 fL (80.0-100.0); Mean Platelet Volume 9.6 fL (9.4-12.4); Platelet Count 142 K/uL (130-400); RDW Coefficient of Variation 20.1 % (11.5-14.5); RDW Standard Deviation 64.9 fL (36.4-46.3); Red Blood Count 2.86 M/uL (4.70-6.10); White Blood Count 6.84 K/ul (4.8-10.8)
[2024-08-13 09:42] LABS: BUN Creatinine Ratio 11.7 (10-20); Calcium 9.6 mg/dl (8.6-10.3); Creatinine Clr Calc Pharmacy 62.1 ml/min
[2024-08-13 09:51] LABS: Anisocytosis Present; Basophils # (auto) 0.07 K/uL (0.00-0.20); Eosinophils # (auto) 0.53 K/uL (0.00-0.50); Eosinophils % (auto) 7.7 %; Immature Granulocytes # (auto) 0.02 K/uL (0.01-0.20); Immature Granulocytes % (auto) 0.3 %; Lymphocytes # (auto) 1.41 K/uL (1.20-3.40); Lymphocytes % (auto) 20.6 %; Monocytes # (auto) 0.71 K/uL (0.11-0.59); Monocytes % (auto) 10.4 %; Stomatocytes 2+
[2024-08-13] MEDS: IRON SUCROSE 300 MG in SODIUM CHLORIDE 0.9% 250 ML IV ONE (11:40)
[2024-08-13] MEDS: ALBUMIN 25% 25 GM/100 ML VIAL IV SCH (11:40)
[2024-08-13] MEDS: LACTATED RINGER'S 1,000 ML IV SCH (11:40)
[2024-08-13] MEDS: MIDODRINE HCL 2.5 MG TAB PO SCH (11:48)
--- NOTE | 2024-08-13 13:52 | Hospitalist Progress Note ---
Date of Service August 13, 2024 Assessment & Plan (1) Symptomatic anemia: (2) Chronic back pain: (3) Diabetes mellitus, type II: (4) HTN (hypertension): (5) HLD (hyperlipidemia): (6) GERD (gastroesophageal reflux disease): (7) ELROY (obstructive sleep apnea): (8) Morbid obesity: Plan Patient is a 49-year-old male with past medical history of GERD, hypertension, hyperlipidemia, type 2 diabetes, anxiety presented to the ED with back pain and lower extremity numbness. Patient underwent MRI of lumbar spine which showed mild bilateral foraminal narrowing; no significant central canal narrowing, no acute osseous findings. He was found to have hemoglobin of 7.6 and was referred for admission. Iron Deficiency Anemia Gastric polyps Presented with hemoglobin of 7.6; last hemoglobin was 13.1 in October 2021. 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 Last colonoscopy in 2013 showed normal-appearing colon. Reported history of MAFLD and signs of portal hypertension in CT abdomen in past. Peripheral blood smear evaluation was done; no overt morphological abnormality. LDH within normal limits Patient underwent EGD on 08/11; found to have multiple large pedunculated polyps with no bleeding and is stigmata of recent bleeding were found in the gastric body. Base of the 4 largest polyp injected with epinephrine; 3 were removed by hot snare and entire area had hemostatic spray applied. Continue on Protonix twice daily diet advance to low fiber Started on IV iron Acute kidney injury Likely prerenal due to hypotensive episode Patient's blood pressure dropped overnight after administration of pm medication. Likely related to Zanaflex. Creatinine elevated to 1.88 Obtain urine electrolytes, urinalysis and bladder scan Started on IV fluids Hold antihypertensives, diuretics Possible acute on chronic HFpEF History of MAFLD cirrhosis Patient reports bilateral lower extremity swelling and abdominal distention Echocardiogram shows EF of 60 to 65% lasix and spironolactone on hold Lumbar radiculopathy MRI of lumbar spine did not show any acute findings PT OT eval Pain control Type 2 diabetes mellitus Started on insulin Hold off oral agents DVT prophylaxis SCDs Full code Time spent evaluating patient, direct bedside care, chart review, placing orders, interpretation of diagnostic studies, discussion with consultants, patient, and family members, as well as other required patient management activities is 50 minutes Please note the above document was generated using voice recognition software. It may contain grammatical, syntax or spelling errors. Any formal questions or concerns about the content, text or information contained within the body of this dictation should be directly addressed to the provider for clarification Admission and Anticipated Discharge Date Admission Date: August 10, 2024 Subjective Patient seen and examined at bedside. Overnight, patient had hypotensive episode after taking his p.m. medication. Patient had episode of altered mental status requiring BiPAP. In the a.m., patient was comfortable and sitting up on the chair. He did not have any dizziness, headache, shortness of breath or chest pain Review of Systems Review of Systems: All systems reviewed & are unremarkable except as noted in Subjective Physical Exam Physical Exam: Constitutional: Alert oriented x 3; not in distress. Respiratory: Bilateral vesicular breath sound Cardiovascular: RRR, no murmur, no edema Vessels: no JVD or carotid bruit Chest: normal inspection of chest Abdomen: normal bowel sounds, soft, nontender, no hepatosplenomegaly Musculoskeletal: +healed surgical scar lower lumbar region. Skin: no rashes, warm and dry normal turgor Neurologic: PERRL, EOMI, accommodation nl, no face palsy, no dysarthria CN's II- XI intact bilaterally and moves all extremities Results & Data Results & Data Vital Signs (Past 12 Hours) Vital Signs Temp Pulse Pulse Resp BP BP Pulse Ox 08/13/24 07:49 36.5 C 69 20 102/63 93 08/13/24 05:15 64 85/52 L 08/13/24 03:20 75 16 99 08/13/24 03:10 37.3 C 70 84/48 L 98 08/13/24 02:38 72 17 91 O2 Del Method O2 Flow Rate 08/13/24 07:49 Room Air 08/13/24 05:15 08/13/24 03:20 5 08/13/24 03:10 BiPAP 08/13/24 02:38 5
[2024-08-13 15:51] LABS: Appearance Urine Clear (Clear); Bacteria Urine Automated None Seen (None Seen); Bilirubin Urine Negative (Negative); Blood Urine 1+ (Negative); Cast Urine Automated 0-2 /lpf (0-2); Color Urine Yellow; Epithelial Cell Urine Auto 0-2 /hpf (0-2); Glucose Urine UA 3+ (Negative); Ketones Urine Negative (Negative); Leukocyte Esterase Urine Negative (Negative); Nitrite Urine Negative (Negative); Protein Urine 1+ (Negative); RBC Urine Automated 0-2 /hpf (0-2); Specific Gravity Urine 1.013 (1.000-1.030); Urobilinogen Urine Positive (Negative); WBC Urine Automated 0-5 /hpf (0-5); pH Urine 6.5 (4.5-7.5)
[2024-08-13 16:07] LABS: Urine Potassium 18.3 mmol/L
[2024-08-13] MEDS ORDERED: tiZANidine HCL 4 MG TABLET PO SCH (20:00)
[2024-08-13] MEDS: HYDROCODONE/ACETAMOPHEN 5/325MG TAB PO ONE (21:22)
[2024-08-13] MEDS: traZODone HCL 50 MG TAB PO SCH (22:28)
[2024-08-14 08:33] LABS: Basophils # (auto) 0.06 K/uL (0.00-0.20); Basophils % (auto) 0.9 %; Eosinophils % (auto) 6.1 %; Hematocrit (blood only) 27.5 % (42.0-52.0); Immature Granulocytes # (auto) 0.04 K/uL (0.01-0.20); Immature Granulocytes % (auto) 0.6 %; Lymphocytes # (auto) 0.93 K/uL (1.20-3.40); Lymphocytes % (auto) 14.3 %; Mean Corpuscular Hemoglobin 26.2 pg (25.0-34.0); Mean Corpuscular Hgb Conc 29.1 g/dL (32.0-36.0); Mean Corpuscular Volume 90.2 fL (80.0-100.0); Mean Platelet Volume 9.6 fL (9.4-12.4); Monocytes # (auto) 0.63 K/uL (0.11-0.59); Monocytes % (auto) 9.7 %; Neutrophils # (auto) 4.45 K/uL (1.40-6.50); Neutrophils % (auto) 68.4 %; Platelet Count 137 K/uL (130-400); RDW Coefficient of Variation 20.2 % (11.5-14.5); RDW Standard Deviation 65.2 fL (36.4-46.3); Red Blood Count 3.05 M/uL (4.70-6.10); White Blood Count 6.51 K/ul (4.8-10.8)
[2024-08-14 08:40] LABS: BUN Creatinine Ratio 15.5 (10-20); Calcium 10.8 mg/dl (8.6-10.3); Creatinine Clr Calc Pharmacy 106.1 ml/min; Potassium 4.1 mmol/L (3.5-5.1)
[2024-08-14 08:50] LABS: Anisocytosis Present; Stomatocytes 2+; Target Cells 1+
[2024-08-14] MEDS: POLYETHYLENE (MIRALAX) 17 GM PACK PO PRN (09:38)
[2024-08-14] MEDS: IRON SUCROSE 300 MG in SODIUM CHLORIDE 0.9% 250 ML IV ONE (12:47)
--- NOTE | 2024-08-14 13:24 | Discharge Summary ---
Date of Service August 14, 2024 Admission HPI Per Admitting Provider Patient is a 49-year-old male with PMH GERD, HTN, HLD, DM II, ELROY, morbid obesity, anxiety presented to ER for back pain LE numbness. Patient reports chronic low back pain. Takes hydrocodone 4 times a day. Reports approximately 6-8 months ago had a fall out of bed and since has had increased pain to left hip radiates to groin and down left thigh to knee. Also reports numbness sensation to left upper leg. States this has been ongoing for past 6-8 months. Followed up with PCP 07/07/2024 and was started on diclofenac. Per outpatient chart review 07/07/2024 L-spine x-ray multilevel degenerative changes, no acute fracture and bilateral hip x-ray: No acute fracture or dislocation, Right hip arthroplasty, Moderate degenerative change left hip. Per outpatient chart review was seen by [facility] sports medicine today for hip pain, back pain and leg pain. Patient had reported issues with bladder urgency intermittently leading to incontinence and altered sensation to perineal region and was referred to ER for further evaluation for concern for cauda equina syndrome. Patient reports has had some nausea. He started Ozempic approximately 4 weeks ago. He is unsure when nausea began and if there is an association with onset of starting Ozempic. Has been taking Diclofenac twice a day. Denies other NSAID use. Drinks approximately 5 beers a week. Intermittent use of vaping medical marijuana. A few times noticed darker color stool but is not consistent. Denies hematochezia. Denies vomiting or abdominal pain. Denies loss control of bowels. Reports has urinary urgency and with his back pain and leg numbness can't get to bathroom in time and sometimes has incontinence. Reports his helps swing his legs out of bed and assists in ambulating him to bathroom in attempts to get there in time. Reports chronic BLE edema and is on lasix. He reports he is becoming fatigued faster with walking and has noticed feels a little SOB with walking over past couple of weeks. Denies history of CHF. Drinks 5 beers a week. Denies other NSAID use. Denies fever/chills, diaphoresis, diarrhea, OLSEN, dizziness, syncope, vision changes, neck pain, CP, palpitations, cough, sore throat, rhinorrhea, rashes, hematuria. In ER MRI L spine: Mild disc and facet degeneration in the lower lumbar spine. Mild bilateral foraminal narrowing at L4-L5 and L5-S1. No acute osseous findings. No significant central canal narrowing. Status post lower lumbar laminectomies. 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 +tenderness to palpation lower lumbar spinous processes. No skin discoloration noted. Reported decreased sensation to left thigh vs right thigh, +tenderness to palpation left thigh Neuro: A&O x 3, no focal deficits noted, +anxious affect, tearful Skin: warm, dry Principal Diagnosis Iron Deficiency Anemia Gastric polyps Discharge Exam Constitutional: Alert oriented x 3; not in distress. Respiratory: Bilateral vesicular breath sound Cardiovascular: RRR, no murmur, no edema Vessels: no JVD or carotid bruit Chest: normal inspection of chest Abdomen: normal bowel sounds, soft, nontender, no hepatosplenomegaly Musculoskeletal: +healed surgical scar lower lumbar region. Skin: no rashes, warm and dry normal turgor Neurologic: PERRL, EOMI, accommodation nl, no face palsy, no dysarthria CN's II- XI intact bilaterally and moves all extremities Discharge Data Allergies Allergy/AdvReac Type Severity Reaction Status Date / Time diazepam AdvReac Unknown diaphoretic Verified 12/06/13 11:29 ;confused Consultations 08/10/24 21:23 ED Decision to Admit Stat 08/10/24 23:31 Consult Gastroenterology Routine 08/11/24 00:35 Consult Cardiology Routine Procedures Performed Operation Date: 08/11/24 16:45 Actual Procedures p EGD Hemostasis - Chato Pedro MD Ordered Studies 08/10/24 17:19 MRI Lumbar Spine [MR lumbar spine wo con] Stat 08/10/24 23:31 US abdomen ltd ascites Stat US leg [US venous doppler LE BI] Stat Hospital Course (1) Symptomatic anemia: (2) Chronic back pain: (3) Diabetes mellitus, type II: (4) HTN (hypertension): (5) HLD (hyperlipidemia): (6) GERD (gastroesophageal reflux disease): (7) ELROY (obstructive sleep apnea): (8) Morbid obesity: Plan Patient is a 49-year-old male with past medical history of GERD, hypertension, hyperlipidemia, type 2 diabetes, anxiety presented to the ED with back pain and lower extremity numbness. Patient underwent MRI of lumbar spine which showed mild bilateral foraminal narrowing; no significant central canal narrowing, no acute osseous findings. He was found to have hemoglobin of 7.6 and was referred for admission. Iron Deficiency Anemia Gastric polyps Presented with hemoglobin of 7.6; last hemoglobin was 13.1 in October 2021. 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 Last colonoscopy in 2013 showed normal-appearing colon. Reported history of MAFLD and signs of portal hypertension in CT abdomen in past. Peripheral blood smear evaluation was done; no overt morphological abnormality. LDH within normal limits Patient underwent EGD on 08/11; found to have multiple large pedunculated polyps with no bleeding and is stigmata of recent bleeding were found in the gastric body. Base of the 4 largest polyp injected with epinephrine; 3 were removed by hot snare and entire area had hemostatic spray applied. Biopsy result of the polyps showed fragments of extensively ulcerated hyperplastic polyp. Patient was monitored for rebleeding during the hospitalization; his hemoglobin remained stable. He received IV Venofer of 900 mg during the hospitalization. At the time of the discharge, his hemoglobin was 8.0. Patient was prescribed Protonix 40 mg twice daily. He was recommended to follow-up with GI as outpatient. He was also prescribed iron tablets to be taken every other day. Patient verbalized understanding of the discharge instructions. Acute kidney injury- Resolved Likely prerenal due to hypotensive episode Patient's blood pressure dropped overnight after administration of pm medication. Likely related to Zanaflex. Creatinine elevated to 1.88 from baseline of 1. He was treated with IV fluid with resolution of BEVERLY. Zanaflex was discontinued. Lisinopril was also discontinued. Patient was recommended to restart Lasix and spironolactone after discharge. Patient to follow-up with his primary care doctor after discharge. Please note the above document was generated using voice recognition software. It may contain grammatical, syntax or spelling errors. Any formal questions or concerns about the content, text or information contained within the body of this dictation should be directly addressed to the provider for clarification Total Time Total Time Spent Total Time Spent (In Minutes): 45 Total Time Includes: Examination of the Patient, Discharge Planning, Medication Reconciliation, Communication With Other Providers and Other Discharge Plan Discharge Items Patient Disposition: Home - Self-Care Reason For Visit: CHF Discharge Diagnosis: Iron deficiency anemia Gastric polyp Activity: Resume your previous activity Non-emergency contact: Primary Care Provider Call non-emergency contact if: you have any medication questions and your symptoms worsen Follow-up/Referrals: Britni Gomez PA-C [Primary Care Provider] - (Date & Time 08/17/2024 10:00 AM Provider Britni Gomez PA-C Department [facility] ) Diet: Regular Addtl Attending Provider Instructions: You were admitted to the hospital due to concern for anemia due to upper GI bleed. You were found to have multiple gastric polyps; 3 were removed by the GI physician. You are prescribed Protonix to be taken twice daily for 30 days. You will need to take Protonix once a day after that. STOP taking diclofenac as it can cause gastric irritation leading to bleeding. STOP taking Zanaflex as it causes low blood pressure. Lisinopril is also stopped as your blood pressure has been normal during the hospitalization. If your blood pressure increases in the future; discussed with your primary care doctor before restarting it. You can start taking Lasix after 3 days. You are also prescribed spironolactone which is also a mild diuretic and antihypertensive which you can start after 1 week. You are also prescribed iron tablets. Start taking it every other day after a week. It can cause dark stools. It can also cause constipation. Please take epvj-vun-iexkiij MiraLAX daily if you experience constipation Pending Studies at Discharge: No Stand-Alone Forms: My [employer], Smoking Cessation Medications and DC Order Prescriptions: New spironolactone [Aldactone] 50 mg tablet 50 mg PO DAILY Qty: 30 0RF pantoprazole [Protonix] 40 mg tablet,delayed release (DR/EC) 40 mg PO BID 30 Days Qty: 60 0RF ferrous sulfate [iron] 325 mg (65 mg iron) tablet 325 mg PO Q OTHER DAY Qty: 60 0RF Continued furosemide 20 mg tablet 20 mg PO DAILY hydrocodone-acetaminophen 7.5-325 mg tablet 7.5 - 235 tab PO QID Jardiance 25 mg tablet 25 mg PO DAILY lorazepam 0.5 mg tablet 0.5 mg PO HS metformin 1,000 mg tablet 1,000 mg PO BID Ozempic 0.25 mg or 0.5 mg (2 mg/3 mL) pen injector 0.25 mg SUBCUT WK Rx Instructions: Takes on fridays. rosuvastatin 10 mg tablet 10 mg PO DAILY trazodone 50 mg tablet 50 mg PO HS triamcinolone acetonide 0.1 % cream 1 applic TOPICAL UD Dulera 100-5 mcg/actuation HFA aerosol inhaler 1 puff INHALATION BID montelukast 10 mg tablet 10 mg PO HS gabapentin 300 mg capsule 300 mg PO QID albuterol sulfate 90 mcg/actuation HFA aerosol inhaler 2 puff INHALATION Q4 PRN (Reason: Cough) Discontinued diclofenac sodium 75 mg tablet,delayed release (DR/EC) 75 mg PO BID lisinopril 5 mg tablet 5 mg PO DAILY tizanidine 4 mg tablet 4 mg PO HS omeprazole 40 mg capsule,delayed release(DR/EC) 40 mg PO BID Discharge Orders: Discharge Order (Routine); Ordered 08/14/24 Ordered By: Vu Ortega Admission Data Admit Date/Time: 08/10/24 22:54 Attending Provider: Vu Ortega Admit Provider: Gerry Rizo Primary Care Provider: Britni Gomez Other Providers: Gerry Rizo; Radha Campoverde; Jim Johnson; Kin Mcdaniel; Terry Baptiste; Cornell Molina; Jeff Scott; Dolores Reyes; Beba Masters; Roslyn Agarwal; Radha Hanson; Remi Singh; Kory De Los Santos; Magnolia Payne; Kendal Weber; Carmel Mello; Kayla Bear; Alejandro Watkins; Holly Franco; Estella Roberts; Chato Pedro Other Interventions: Discharge Summary Assessment (RN) Last Done: 08/11/24 15:06
--- NOTE | 2024-08-15 09:31 | Coding Query ---
CODING QUERY To promote full compliance with coding requirements relating to patient care, provider participation is requested in all cases of orthopedic coder uncertainty. Please assist us with the question(s) below: Coding Question(s): Pt admitted with anemia . 08/13 progress note documented acute on chronic diastolic heart failure. Echo EF 60-65% with diuretics held.Cardiology consulted. Please check below the diagnosis that describes the CHF. Thanks for your help! MADHAVI Arredondo [facility] Physician's Response(s): Patient has acute on chronic diastolic heart failure, present on admission X___ Patient does not have acute on chronic diastolic heart failure. Other: Please document: Principal Diagnosis: "that condition established after study, to be chiefly responsible for occasioning the admission of the patient to the hospital for care." Co-Existing Principal Diagnosis: "when two or more diagnoses equally meet the criteria for principal diagnosis as determined by the circumstances of admission, diagnostic work up, and/or therapy provided, and the Alphabetic Index, Tabular List, or another coding guideline does not provide sequencing direction, any one of the diagnoses may be sequenced first." "When the physician has documented what appears to be a current diagnosis in the body of the record, but has not included the diagnosis in the final diagnostic statement, the physician should be asked whether the diagnosis should be added." (Source Coding [facility] 2 QTR90. p3-4) [facility]
--- NOTE | 2024-08-15 15:07 | Electrocardiogram Report ---
Test Reason : Blood Pressure : */* mmHG Vent. Rate : 70 BPM Atrial Rate : 70 BPM P-R Int : 134 ms QRS Dur : 94 ms QT Int : 414 ms P-R-T Axes : 42 -40 27 degrees QTcB Int : 447 ms Normal sinus rhythm Left axis deviation Abnormal ECG When compared with ECG of 10-Aug-2024 21:25, Premature atrial complexes are no longer Present Confirmed by Vladimir Lutz ([id number]) on 08/15/2024 3:07:01 PM Referred By: REFERRED SELF Confirmed By: Vladimir Lutz
== END 2024-08-14 18:22 | disposition home or self-care (01) | DRG 812 ==
LOC: ED 16:34 → 4W 22:54